=== PATIENT | female | born 1940 | race Caucasian/White ===

== ENCOUNTER 2019-02-19 06:00 | Outpatient (RCR) | payer MEDICARE, BC, SELFPAY | END 2019-03-21 00:01 | LOC: TPT 06:00 | PROVIDERS: Family Provider Internal Medicine; Visit Provider Anesthesiology Pain Medicine | DX: M48.062 Spinal stenosis, lumbar region with neurogenic claudication (principal); M47.816 Spondylosis without myelopathy or radiculopathy, lumbar region; M51.16 Intervertebral disc disorders with radiculopathy, lumbar region; M96.1 Postlaminectomy syndrome, not elsewhere classified; M54.5 Low back pain; M46.1 Sacroiliitis, not elsewhere classified | CPT/HCPCS: 97110 ×7; 97164; 97530 ×3; G0283 ×6 ==

== ENCOUNTER 2019-03-22 06:00 | Outpatient (RCR) | payer MEDICARE, BC, SELFPAY | END 2019-04-21 23:59 | disposition home or self-care (01) | LOC: TPT 06:00 | PROVIDERS: Family Provider Internal Medicine; PCP Internal Medicine; Visit Provider Anesthesiology Pain Medicine | DX: M48.062 Spinal stenosis, lumbar region with neurogenic claudication (principal); M47.816 Spondylosis without myelopathy or radiculopathy, lumbar region; M51.16 Intervertebral disc disorders with radiculopathy, lumbar region; M96.1 Postlaminectomy syndrome, not elsewhere classified; M46.1 Sacroiliitis, not elsewhere classified | CPT/HCPCS: 97110; 97530; G0283 ==

== ENCOUNTER 2019-04-22 06:00 | Outpatient (RCR) | payer MEDICARE, BC, SELFPAY | END 2019-05-20 23:59 | disposition home or self-care (01) | LOC: TPT 06:00 | PROVIDERS: Family Provider Internal Medicine; PCP Internal Medicine; Visit Provider Anesthesiology Pain Medicine | DX: M48.062 Spinal stenosis, lumbar region with neurogenic claudication (principal); M47.816 Spondylosis without myelopathy or radiculopathy, lumbar region; M51.16 Intervertebral disc disorders with radiculopathy, lumbar region; M96.1 Postlaminectomy syndrome, not elsewhere classified; M54.5 Low back pain; M46.1 Sacroiliitis, not elsewhere classified; F06.4 Anxiety disorder due to known physiological condition; G47.33 Obstructive sleep apnea (adult) (pediatric) | CPT/HCPCS: 97110; G0283 ==

== ENCOUNTER → 2019-05-02 12:00 | Outpatient (BNVA) | payer MEDICARE, BC, SELFPAY | PROVIDERS: Family Provider Internal Medicine; PCP Internal Medicine; Visit Provider Internal Medicine | DX: M25.562 Pain in left knee (principal); M25.561 Pain in right knee | CPT/HCPCS: 73565 ==

== ENCOUNTER 2019-05-31 11:33 | Outpatient (CLI) | payer MEDICARE, BC, SELFPAY ==
--- NOTE | 2019-05-31 11:43 | XR_ITS ---
WS: [id number] Bilateral hips. HISTORY: Pain. COMPARISON: 05/29/2013. RIGHT hip: Severe narrowing of the RIGHT hip joint. There is bone upon bone with osteophytic ridging and sclerotic changes on both sides of the joint space. Moderate progression since 2013. Subchondral cystic changes and irregularity with loss of cartilage. No fracture. LEFT hip: Minimal narrowing of the LEFT hip joint osteoarthritic changes. No fracture. No progression of disease. XR/XR hip BI 3-4V wo/w pel [id number] IMPRESSION: 1. Severe osteoarthritis at the RIGHT hip joint with moderate progression since 2013. 2. Mild LEFT hip joint osteoarthritis with no progression.
== END 2019-05-31 11:34 | disposition home or self-care (01) ==
PROVIDERS: Family Provider Internal Medicine; PCP Internal Medicine; Visit Provider Internal Medicine
DX: M16.0 Bilateral primary osteoarthritis of hip (principal); M25.552 Pain in left hip; M25.551 Pain in right hip
CPT/HCPCS: 73522

== ENCOUNTER → 2019-07-27 15:26 | Outpatient (BNVA) | payer MEDICARE, BC, SELFPAY | PROVIDERS: Family Provider Internal Medicine; PCP Internal Medicine; Visit Provider Internal Medicine | DX: R53.1 Weakness (principal); R53.83 Other fatigue; R25.1 Tremor, unspecified; E11.9 Type 2 diabetes mellitus without complications; N18.2 Chronic kidney disease, stage 2 (mild); D50.9 Iron deficiency anemia, unspecified | CPT/HCPCS: 80053; 82607; 82728; 82746; 83036; 83550; 84443; 85025 ==

== ENCOUNTER → 2019-10-18 15:37 | Outpatient (BNVA) | payer MEDICARE, BC, SELFPAY | PROVIDERS: Family Provider Internal Medicine; PCP Internal Medicine; Visit Provider Internal Medicine | DX: E11.9 Type 2 diabetes mellitus without complications (principal); R53.83 Other fatigue; I10 Essential (primary) hypertension | CPT/HCPCS: 80053; 82607; 82746; 83036; 83550; 84443; 85025 ==

== ENCOUNTER → 2019-11-02 11:00 | Outpatient (BNVA) | payer MEDICARE, BC, SELFPAY | PROVIDERS: Family Provider Internal Medicine; PCP Internal Medicine; Visit Provider Internal Medicine | DX: E03.9 Hypothyroidism, unspecified (principal); E87.1 Hypo-osmolality and hyponatremia | CPT/HCPCS: 80048; 84443 ==

== ENCOUNTER → 2019-12-05 11:02 | Outpatient (BNVA) | payer MEDICARE, BC, SELFPAY | PROVIDERS: Family Provider Internal Medicine; PCP Internal Medicine; Visit Provider Internal Medicine | DX: E03.9 Hypothyroidism, unspecified (principal) | CPT/HCPCS: 84443 ==

== ENCOUNTER → 2020-01-22 13:41 | Outpatient (BNVA) | payer MEDICARE, BC, SELFPAY | PROVIDERS: Family Provider Internal Medicine; PCP Internal Medicine; Visit Provider Internal Medicine | DX: N39.0 Urinary tract infection, site not specified (principal); R30.0 Dysuria | CPT/HCPCS: 81003 ==

== ENCOUNTER 2020-01-31 06:00 | Outpatient (RCR) | payer MEDICARE, BC, SELFPAY | END 2020-02-19 23:59 | disposition home or self-care (01) | LOC: TPT 06:00 | PROVIDERS: PCP Internal Medicine; Referring Provider Internal Medicine; Visit Provider Internal Medicine | DX: M62.81 Muscle weakness (generalized) (principal) | CPT/HCPCS: 81000; 97161 ==

== ENCOUNTER → 2020-02-05 10:18 | Outpatient (BNVA) | payer MEDICARE, BC, SELFPAY | PROVIDERS: PCP Internal Medicine; Visit Provider Family Medicine | DX: N39.0 Urinary tract infection, site not specified (principal) | CPT/HCPCS: 87086 ==

== ENCOUNTER → 2020-02-27 13:48 | Outpatient (BNVA) | payer MEDICARE, BC, SELFPAY | PROVIDERS: PCP Internal Medicine; Visit Provider Internal Medicine | DX: E78.5 Hyperlipidemia, unspecified (principal); I10 Essential (primary) hypertension; M25.559 Pain in unspecified hip | CPT/HCPCS: 86141 ==

== ENCOUNTER 2020-03-05 13:08 | Outpatient (CLI) | payer MEDICARE, BC, SELFPAY ==
--- NOTE | 2020-03-05 13:30 | USCV_ITS ---
Savannah Wu Age: 79 Gender: F : 1940 Exam Date: 03/05/2020 13:31 Ordering Phys: Marty Meadows MD ([email or web address]) Technologist: Laureano Killian Exam Location: [facility] – [place] Indication: SOB BP: 143 / 89 HR: 83 Rhythm: Sinus Technical Quality: Adequate MEASUREMENTS (Male / Female) Normal Values 2D ECHO LV Diastolic Diameter PLAX 3.6 cm 4.2 - 5.9 / 3.9 - 5.3 cm LV Systolic Diameter PLAX 1.3 cm IVS Diastolic Thickness 1.6 cm 0.6 - 1.0 / 0.6 - 0.9 cm IVS Systolic Thickness 1.8 cm LVPW Diastolic Thickness 1.7 cm 0.6 - 1.0 / 0.6 - 0.9 cm LVPW Systolic Thickness 1.7 cm LVOT Diameter 2.0 cm LV Ejection Fraction 2D Teich 85.9 % LV Ejection Fraction MOD 2C 65.3 % LV Ejection Fraction 2C AL 65.9 % LA Diameter 4.4 cm LA Width 3.6 cm LA Height 4.3 cm RA Width 2.7 cm RA Height 3.9 cm Aorta at Sinotubular Diameter 3.1 cm M-MODE LV Diastolic Diameter MM 4.0 cm 4.2 - 5.9 / 3.9 - 5.3 cm LV Systolic Diameter MM 2.0 cm LV Ejection Fraction MM Teich 81.9 % IVS Diastolic Thickness MM 2.1 cm 0.6 - 1.0 / 0.6 - 0.9 cm IVS Systolic Thickness MM 2.4 cm LVPW Diastolic Thickness MM 1.8 cm 0.6 - 1.0 / 0.6 - 0.9 cm LVPW Systolic Thickness MM 2.6 cm RV Diastolic Diameter MM 1.3 cm Aortic Annulus Diameter 3.5 cm LA Ao Ratio MM 1.2 MV E Point Septal Separation 0.8 cm DOPPLER AV Peak Velocity 156.0 cm/s LVOT Peak Velocity 155.0 cm/s AV Area Cont Eq vti 4.0 cm squared AV Area Cont Eq pk 3.3 cm squared MV Area PHT 2.3 cm squared Mitral E to A Ratio 0.5 MV E' Velocity 27.5 cm/s Mitral E to MV E' Ratio 6.8 Mitral E to LV E' Lateral Ratio 7.2 Mitral E to LV E' Septal Ratio 6.5 TR Peak Velocity 128.7 cm/s TR Peak Gradient 6.6 mmHg TV Peak E Velocity 89.0 cm/s Right Atrial Pressure 3.0 mmHg Pulmonary Artery Systolic Pressu 9.6 mmHg PV Peak Velocity 152.0 cm/s FINDINGS Left Ventricle Normal left ventricular cavity size. Decreased left ventricular wall thickness. No regional wall motion abnormalities. Hyperdynamic left ventricular systolic function.moderate left ventricular hypertrophy of concentric type. Left ventricular ejection fraction is estimated at 70 %. Grade I/IV diastolic dysfunction (abnormal relaxation filling pattern), normal to mildly elevated filling pressures. Right Ventricle The right ventricle is normal in size and function. Right Atrium The right atrium is normal in size. Left Atrium The left atrium is normal in size. Mitral Valve Structurally normal mitral valve without significant stenosis or prolapse. There is no mitral regurgitation. Aortic Valve Moderate aortic valve calcification. No aortic valve stenosis. Mild aortic valve regurgitation. Tricuspid Valve Structurally normal tricuspid valve without significant stenosis or regurgitation. Pulmonary artery systolic pressure is normal. Pulmonic Valve Structurally normal pulmonic valve without significant stenosis. There is no pulmonic regurgitation. Pericardium Normal pericardium without effusion. Aorta Normal ascending aorta dimension. CONCLUSIONS 1-Normal left ventricular cavity size. Decreased left ventricular wall thickness. No regional wall motion abnormalities. Hyperdynamic left ventricular systolic function.moderate left ventricular hypertrophy of concentric type. Left ventricular ejection fraction is estimated at 70 %. Grade I/IV diastolic dysfunction (abnormal relaxation filling pattern), normal to mildly elevated filling pressures. 2-Moderate aortic valve calcification. No aortic valve stenosis. Mild aortic valve regurgitation. 3-There is no pericardial effusion. 4-Pulmonary artery systolic pressure is within normal limits. 5-Right atrial pressure is around 5 mm of mercury. 6-No significant change since the prior echocardiogram study of 07/05/2018.. Marty Meadows MD (Electronically Signed) Final Date: 06 March 2020 18:51 S
== END 2020-03-05 13:09 | disposition home or self-care (01) ==
LOC: US 13:08
PROVIDERS: PCP Internal Medicine; Visit Provider Internal Medicine Cardiovascular Disease
DX: I35.1 Nonrheumatic aortic (valve) insufficiency (principal); R06.02 Shortness of breath
CPT/HCPCS: 93306

== ENCOUNTER 2020-04-18 14:45 | Emergency (ER) | payer MEDICARE, BC, SELFPAY ==
[2020-04-18 14:50] VITALS: BP 159/71; PULSE 118; RESP 18; TEMP 36.8; O2SAT 96; BMI 34.3
--- NOTE | 2020-04-18 15:01 | W.ED.GENADLT ---
Documented by User: Demario Meyer DO 04/19/20 06:50 HPI - General Adult General: Chief complaint: General Medical Stated complaint: queazy, shaky, stomach issues Time Seen by Provider: 04/18/20 14:59 History of Present Illness: HPI narrative: 80-year-old female presents emergency room with complaints of generally not feeling well nauseous queasy shaking. She denies any fever sweats or chills she denies any hematochezia melena hematemesis or coffee-ground emesis. This is been going on for about 3 days now. She has multiple allergies that she recently stopped taking gabapentin 300 mg once daily. Did not take any anticoagulant she has not recently had any falls. She denies any dysuria urgency or frequency. Onset (ago): day(s) Location: abdomen Radiation: back Severity: mild and moderate Relieving factors: none Exacerbating factors: none Associated symptoms: Reports decreased appetite, malaise, nausea and weakness; Deny chest pain, confusion, cough, diaphoresis, dyspnea, fevers/chills, headache(s), rash, palpitations, seizures, short of breath, syncope or vomiting Treatments prior to arrival: none Review of Systems Const: Reports: malaise; Denies: diaphoresis ENMT: Denies: throat pain, ear or mastoid pain, nasal discharge or nasal congestion Card: Denies: chest pain, palpitations or syncope Resp: Denies: dyspnea GI: Reports: nausea; Denies: vomiting : Denies: flank pain, difficulty voiding, dysuria, urinary frequency or urinary urgency Skin/Breast: Denies: rash Neuro: Denies: headache(s) or confusion [facility] ED PFSH: Medical History Ascending aorta dilation Back pain, thoracic Benign essential HTN Bilateral primary osteoarthritis of knee Chronic depression Chronic pain CKD (chronic kidney disease), stage II Coronary artery disease Cyst of pancreas Essential tremor Generalized neuropathy H/O angiography Hyperlipidemia, unspecified Hypothyroidism, unspecified Iron deficiency Mild aortic regurgitation Mild mitral regurgitation Mild obstructive sleep apnea Mild tricuspid regurgitation Slow transit constipation Stress-induced cardiomyopathy Tremor, unspecified Type 2 diabetes mellitus without complications Vitamin D deficiency, unspecified Surgical History History of esophagogastroduodenoscopy (EGD) 12/03/2017- INTEALUMINAL GASTRIC BLOOD- GASTRITIS WITH BLEEDING S/P colonoscopy 12/03/2017- POLYPS REMOVED- REPEAT IN 5 YEARS Family History Other Diabetes Heart disease Social History Smoking and tobacco status: former smoker Alcohol intake: never History of recent travel: No Physical Exam Const: COMMON NORMALS: no acute distress GENERAL APPEARANCE: cooperative and comfortable ORIENTATION/CONSCIOUSNESS: Yes awake, Yes oriented to person, Yes oriented to place and Yes oriented to time HENMT: COMMON NORMALS: normocephalic, atraumatic and hearing grossly normal bilaterally HEAD & SCALP: normocephalic and atraumatic Neck/C-Spine: COMMON NORMALS: no JVD Resp: COMMON NORMALS: normal respiratory effort, No retractions, No use of accessory muscles and clear to auscultation bilaterally AUSCULTATION: clear to auscultation bilaterally Cardio: COMMON NORMALS: no JVD, regular rate, regular rhythm and No murmurs present (Cardio) RATE: regular rate RHYTHM: regular rhythm GI: COMMON NORMALS: Soft to palpation and No hepatosplenomegaly present AUSCULTATION: Yes normoactive bowel sounds PALPATION: Yes Soft to palpation, No Tenderness to palpation present (GI), No Guarding due to palpation present (GI) and Yes No hepatosplenomegaly present Extremity: COMMON NORMALS: normal to inspection, capillary refill normal, no clubbing, cyanosis or edema, no calf tenderness and no pedal edema Neuro: SENSORIUM/ORIENTATION: Yes oriented to person, Yes oriented to place and Yes oriented to time Skin: COMMON NORMALS: no rashes or lesions noted GENERAL SKIN EXAM: no rashes or lesions noted Course Vital Signs: Vital signs: Vital Signs Temperature 98.3 F 04/18/20 14:50 Pulse Rate 83 04/18/20 19:53 Respiratory Rate 18 04/18/20 19:53 Blood Pressure 161/77 04/18/20 19:53 Pulse Oximetry 95 04/18/20 19:53 MDM - General Adult MDM Narrative: Medical decision making narrative: Care turned over to Dr. Johnson at change of shift. See his notes for final diagnosis and disposition Lab Data: Labs: Lab Results 04/18/20 04/18/20 04/18/20 Range/Units 15:17 15:17 16:43 WBC 9.0 (4.0-10.0) 10^3/ uL RBC 3.45 L (4.1-5.3) 10^6/u L Hgb 10.7 L (11.5-15.3) g/dL Hct 32.8 L (37.0-47.0) % MCV 95.1 (81-99) fL MCH 31.0 (28.0-34.0) pg MCHC 32.6 (30.0-36.0) g/dL RDW 13.0 (12.1-15.1) % Plt Count 233 (130-400) 10^3/c mm MPV 10.1 (7.4-10.4) fL Neut % (Auto) 77.5 % Lymph % (Auto) 15.4 % [place] % (Auto) 5.6 % Eos % (Auto) 0.7 % Baso % (Auto) 0.2 % Neut # (Auto) 7.01 (1.8-7.7) 10^3/u L Lymph # (Auto) 1.4 (0.8-4.8) 10^3/u L [place] # (Auto) 0.5 (0.2-0.9) 10^3/u L Eos # (Auto) 0.1 (0.0-0.8) 10^3/u L Baso # (Auto) 0.0 (0.0-0.1) 10^3/u L Nucleated RBC % (a uto) 0 % Nucleated RBCs # 0.0 /100WBC Sodium 132 L (136-145) mmol/L Potassium 4.4 (3.5-5.1) mmol/L Chloride 97 L (98-107) mmol/L Carbon Dioxide 23 (22-29) mmol/L Anion Gap 16.4 (5-19) BUN 26 H (8-23) mg/dL Creatinine 1.4 H (0.5-0.9) mg/dL GFR Calculation Not Reportable Glucose 308 H (65-115) mg/dL Calculated Osmolal ity 290 (285-295) mOsm/k g Calcium 9.2 (8.5-10.5) mg/dL Magnesium 1.8 (1.7-2.3) mg/dL Total Bilirubin 0.3 (0.15-1.2) mg/dL AST 13 (0-32) U/L ALT 10 (0-33) U/L Alkaline Phosphata se 66 (35-105) IU/L Creatine Kinase 89 (26-192) U/L Total Protein 6.9 (6.6-8.7) g/dL Albumin 3.7 (3.5-5.2) g/dL Globulin 3.2 (1.3-4.6) g/dL Lipase 22 (13-60) U/L Urine Color Yellow (Yellow) Urine Appearance Clear (CLEAR) Urine pH 5 (5-7) Ur Specific Gravit y 1.020 (1.005-1.030) Urine Protein Neg (Negative) Urine Glucose (UA) Norm (Normal) Urine Ketones Negative (Negative) Urine Blood Neg (Negative) Urine Nitrate Negative (Negative) Urine Bilirubin Neg (Negative) Urine Urobilinogen Norm (Negative) mg/dL Ur Leukocyte Beatriz ase Negative (Negative) Discharge Plan Discharge Patient Disposition: Home Clinical Impression: Dyspnea Abdominal pain Qualifiers: Abdominal location: generalized Qualified Code(s): R10.84 - Generalized abdominal pain Condition: Stable Prescriptions: New ondansetron 4 mg tablet,disintegrating 4 mg PO Q6H PRN (Reason: nausea and vomiting) Qty: 14 RF: 0 dicyclomine 20 mg tablet 20 mg PO BID PRN (Reason: abdominal pain) Qty: 20 RF: 0 No Action atorvastatin 20 mg tablet 20 mg PO DAILY@22 RF: 0 Levemir FlexTouch U-100 Insuln 100 unit/mL (3 mL) insulin pen 25 unit SUBCUT BID 90 Days Qty: 45 RF: 3 (DME) blood-glucose meter Kit See Rx Instructions .ROUTE .MEDSUPPLY Qty: 1 RF: 0 Benadryl 25 mg Capsule 25 mg PO PRN RF: 0 Refresh 1 % Drops, Liquid Gel 1 - 2 drp ophthalmic (eye) PRN RF: 0 meloxicam 15 mg tablet 15 mg PO DAILY@08 RF: 0 isosorbide mononitrate 30 mg tablet extended release 24 hr 30 mg PO DAILY@08 RF: 0 clopidogrel 75 mg tablet 75 mg PO DAILY@08 RF: 0 verapamil 120 mg tablet 120 mg PO DAILY@08 RF: 0 trazodone 100 mg tablet 100 mg PO DAILY@22 RF: 0 hydralazine 100 mg tablet 100 mg PO TID@,, RF: 0 pantoprazole 40 mg tablet,delayed release (DR/EC) 40 mg PO BID@, RF: 0 losartan 100 mg tablet 100 mg PO DAILY@08 RF: 0 fluticasone propionate 50 mcg/actuation spray,suspension 2 spray INTRANASAL DAILY PRN (Reason: Allergy Symptoms) RF: 0 Abilify 5 mg tablet 5 mg PO DAILY@22 RF: 0 duloxetine 60 mg capsule,delayed release(DR/EC) 60 mg PO DAILY@08 RF: 0 cholecalciferol (vitamin D3) 1,250 mcg (50,000 unit) capsule 50,000 unit PO Q30D RF: 0 levothyroxine 125 mcg capsule 125 mcg PO DAILY@07 RF: 0 Discharge Orders: Discharge ED (Routine); Ordered 04/18/20 Ordered By: Chloe Johnson Referrals: Andrea Katz MD [Primary Care Provider] - 1-3 days Discharge Diet: Advance as tolerated Discharge Activity: Resume usual activity Patient Instructions: Abdominal Pain (ED) Coding Level of Care Code ED Clean Out Driller for Chg Fwd Exam Comprehensive Documented by User: Chloe Johnson MD 04/18/20 19:48 HPI - General Adult General: Chief complaint: General Medical Stated complaint: queazy, shaky, stomach issues Time Seen by Provider: 04/18/20 14:59 PFSH ED PFSH: Medical History Ascending aorta dilation Back pain, thoracic Benign essential HTN Bilateral primary osteoarthritis of knee Chronic depression Chronic pain CKD (chronic kidney disease), stage II Coronary artery disease Cyst of pancreas Essential tremor Generalized neuropathy H/O angiography Hyperlipidemia, unspecified Hypothyroidism, unspecified Iron deficiency Mild aortic regurgitation Mild mitral regurgitation Mild obstructive sleep apnea Mild tricuspid regurgitation Slow transit constipation Stress-induced cardiomyopathy Tremor, unspecified Type 2 diabetes mellitus without complications Vitamin D deficiency, unspecified Surgical History History of esophagogastroduodenoscopy (EGD) 12/03/2017- INTEALUMINAL GASTRIC BLOOD- GASTRITIS WITH BLEEDING S/P colonoscopy 12/03/2017- POLYPS REMOVED- REPEAT IN 5 YEARS Family History Other Diabetes Heart disease Social History Smoking and tobacco status: former smoker Alcohol intake: never History of recent travel: No Course Vital Signs: Vital signs: Vital Signs Temperature 98.3 F 04/18/20 14:50 Pulse Rate 83 04/18/20 19:53 Respiratory Rate 18 04/18/20 19:53 Blood Pressure 161/77 04/18/20 19:53 Pulse Oximetry 95 04/18/20 19:53 MDM - General Adult MDM Narrative: Medical decision making narrative: Savannah presents with abdominal pain. Her CT scan here is normal. We will get her follow-up with Dr. Katz her PCP she likely needs an EGD. We will place her on Bentyl along with Zofran. She had some mild hypoxia but she does wear oxygen as needed at home as well. She has no signs of pneumonia. Patient is stable for discharge and is to return if worsening. She understands agrees to plan. Lab Data: Labs: Lab Results 04/18/20 04/18/20 04/18/20 Range/Units 15:17 15:17 16:43 WBC 9.0 (4.0-10.0) 10^3/ uL RBC 3.45 L (4.1-5.3) 10^6/u L Hgb 10.7 L (11.5-15.3) g/dL Hct 32.8 L (37.0-47.0) % MCV 95.1 (81-99) fL MCH 31.0 (28.0-34.0) pg MCHC 32.6 (30.0-36.0) g/dL RDW 13.0 (12.1-15.1) % Plt Count 233 (130-400) 10^3/c mm MPV 10.1 (7.4-10.4) fL Neut % (Auto) 77.5 % Lymph % (Auto) 15.4 % [place] % (Auto) 5.6 % Eos % (Auto) 0.7 % Baso % (Auto) 0.2 % Neut # (Auto) 7.01 (1.8-7.7) 10^3/u L Lymph # (Auto) 1.4 (0.8-4.8) 10^3/u L [place] # (Auto) 0.5 (0.2-0.9) 10^3/u L Eos # (Auto) 0.1 (0.0-0.8) 10^3/u L Baso # (Auto) 0.0 (0.0-0.1) 10^3/u L Nucleated RBC % (a uto) 0 % Nucleated RBCs # 0.0 /100WBC Sodium 132 L (136-145) mmol/L Potassium 4.4 (3.5-5.1) mmol/L Chloride 97 L (98-107) mmol/L Carbon Dioxide 23 (22-29) mmol/L Anion Gap 16.4 (5-19) BUN 26 H (8-23) mg/dL Creatinine 1.4 H (0.5-0.9) mg/dL GFR Calculation Not Reportable Glucose 308 H (65-115) mg/dL Calculated Osmolal ity 290 (285-295) mOsm/k g Calcium 9.2 (8.5-10.5) mg/dL Magnesium 1.8 (1.7-2.3) mg/dL Total Bilirubin 0.3 (0.15-1.2) mg/dL AST 13 (0-32) U/L ALT 10 (0-33) U/L Alkaline Phosphata se 66 (35-105) IU/L Creatine Kinase 89 (26-192) U/L Total Protein 6.9 (6.6-8.7) g/dL Albumin 3.7 (3.5-5.2) g/dL Globulin 3.2 (1.3-4.6) g/dL Lipase 22 (13-60) U/L Urine Color Yellow (Yellow) Urine Appearance Clear (CLEAR) Urine pH 5 (5-7) Ur Specific Gravit y 1.020 (1.005-1.030) Urine Protein Neg (Negative) Urine Glucose (UA) Norm (Normal) Urine Ketones Negative (Negative) Urine Blood Neg (Negative) Urine Nitrate Negative (Negative) Urine Bilirubin Neg (Negative) Urine Urobilinogen Norm (Negative) mg/dL Ur Leukocyte Beatriz ase Negative (Negative) Imaging Data^: CT Abd/Pel: Attestation: I personally reviewed and interpreted this imaging study as follows: Radiologist's impression: [employer] [address] [address] Scan Report Signed Patient: Savannah Wu Unit #: [id number] : 1940 Age/Sex: 80 / F ADM Date: 04/18/20 Loc: ER Room/Bed: Attending Dr: Ordering Provider/Ordering MD: Demario Meyer DO Date of Service: 04/18/20 Procedure(s): CT abdomen pelvis w con* [id number] Accession Number(s): [id number] Report Number: [id number] PROCEDURE INFORMATION: Exam: CT Abdomen And Pelvis With Contrast Exam date and time: 04/18/2020 5:35 PM Age: 80 years old Clinical indication: Nausea; Abdominal pain; Prior surgery; Surgery type: Hyst, gb, hip; Additional info: Abd pain TECHNIQUE: Imaging protocol: Computed tomography of the abdomen and pelvis with intravenous contrast. Radiation optimization: All CT scans at this facility use at least one of these dose optimization techniques: automated exposure control; mA and/or kV adjustment per patient size (includes targeted exams where dose is matched to clinical indication); or iterative reconstruction. Contrast material: VISI 320; Contrast volume: 95 ml; Contrast route: INTRAVENOUS (IV); COMPARISON: CTA Thoracic/Abd/Pelvis Aorta 09/27/2016 4:40 AM RADIATION DOSE METRICS: Total DLP (mGy-cm): 1259.39 FINDINGS: Lungs: Calcified granuloma in the left lower lobe. Heart: Small pericardial effusion. Mediastinal space: Small hiatal hernia. Liver: Normal. No mass. Gallbladder and bile ducts: Cholecystectomy. The bile ducts are normal. Pancreas: Normal. No ductal dilation. Spleen: Normal. No splenomegaly. Adrenal glands: Normal. No mass. Kidneys and ureters: Mild perinephric stranding appears chronic and is likely physiologic. No calculus or hydronephrosis. Stomach and bowel: Mild diverticulosis of the distal colon. The stomach and small bowel are unremarkable. Appendix: The appendix is not visualized. No secondary signs of appendicitis. Intraperitoneal space: Clips in the anterior mesentery. Vasculature: Atherosclerotic calcifications without aneurysm. Lymph nodes: Unremarkable. No enlarged lymph nodes. Urinary bladder: Unremarkable as visualized. Reproductive: The uterus and ovaries are absent. Bones/joints: L4-L5 decompressive laminectomies with posterior mechanical fusion. No compression fracture. L3 vertebral body hemangioma. Soft tissues: Medication injection sites in the anterior abdominal wall. Other findings: No acute findings. CT/CT abdomen pelvis w con* [id number] IMPRESSION: 1. No acute abnormality identified in the abdomen or pelvis. 2. Mild diverticulosis of the distal colon. Discharge Plan Discharge Patient Disposition: Home Clinical Impression: Dyspnea Abdominal pain Qualifiers: Abdominal location: generalized Qualified Code(s): R10.84 - Generalized abdominal pain Condition: Stable Prescriptions: New ondansetron 4 mg tablet,disintegrating 4 mg PO Q6H PRN (Reason: nausea and vomiting) Qty: 14 RF: 0 dicyclomine 20 mg tablet 20 mg PO BID PRN (Reason: abdominal pain) Qty: 20 RF: 0 No Action atorvastatin 20 mg tablet 20 mg PO DAILY@22 RF: 0 Levemir FlexTouch U-100 Insuln 100 unit/mL (3 mL) insulin pen 25 unit SUBCUT BID 90 Days Qty: 45 RF: 3 (DME) blood-glucose meter Kit See Rx Instructions .ROUTE .MEDSUPPLY Qty: 1 RF: 0 Benadryl 25 mg Capsule 25 mg PO PRN RF: 0 Refresh 1 % Drops, Liquid Gel 1 - 2 drp ophthalmic (eye) PRN RF: 0 meloxicam 15 mg tablet 15 mg PO DAILY@08 RF: 0 isosorbide mononitrate 30 mg tablet extended release 24 hr 30 mg PO DAILY@08 RF: 0 clopidogrel 75 mg tablet 75 mg PO DAILY@08 RF: 0 verapamil 120 mg tablet 120 mg PO DAILY@08 RF: 0 trazodone 100 mg tablet 100 mg PO DAILY@22 RF: 0 hydralazine 100 mg tablet 100 mg PO TID@08,20,22 RF: 0 pantoprazole 40 mg tablet,delayed release (DR/EC) 40 mg PO BID@08,22 RF: 0 losartan 100 mg tablet 100 mg PO DAILY@08 RF: 0 fluticasone propionate 50 mcg/actuation spray,suspension 2 spray INTRANASAL DAILY PRN (Reason: Allergy Symptoms) RF: 0 Abilify 5 mg tablet 5 mg PO DAILY@22 RF: 0 duloxetine 60 mg capsule,delayed release(DR/EC) 60 mg PO DAILY@08 RF: 0 cholecalciferol (vitamin D3) 1,250 mcg (50,000 unit) capsule 50,000 unit PO Q30D RF: 0 levothyroxine 125 mcg capsule 125 mcg PO DAILY@07 RF: 0 Discharge Orders: Discharge ED (Routine); Ordered 04/18/20 Ordered By: Chloe Johnson Referrals: Andrea Katz MD [Primary Care Provider] - 1-3 days Discharge Diet: Advance as tolerated Discharge Activity: Resume usual activity Patient Instructions: Abdominal Pain (ED) Coding Level of Care Code ED Clean Out Driller for Christiang Fwd Exam Comprehensive
--- NOTE | 2020-04-18 15:10 | ECG_ITS ---
[facility] Test Date: 2020-04-18 Pat Name: Savannah Wu Department: Room: Gender: Female Replenishment Specialist: : 1940 Requested By: Demario Mckeon Order Number: [id number] Rohini MD: Sariah Crouch M.D. Measurements Intervals [place] Rate: 102 P: 98 OR: 186 QRS: -60 QRSD: 126 T: 62 QT: 393 QTc: 513 Interpretive Statements SINUS TACHYCARDIA RIGHT BUNDLE BRANCH BLOCK [120+ ms QRS DURATION, UPRIGHT V1, 40+ ms S IN I/aVL/V4/V5/V6] LEFT ANTERIOR FASCICULAR BLOCK [QRS AXIS <= -45, QR IN I, RS IN II] MINIMAL VOLTAGE CRITERIA FOR LVH, CONSIDER NORMAL VARIANT [MEETS CRITERIA IN ONE OF: R(aVL), S(V1), R(V5), R(V5/V6)+S(V1)] POSSIBLE SEPTAL MYOCARDIAL INFARCTION , PROBABLY OLD [30 ms Q WAVE IN V1/V2] Compared to ECG 10/18/2016 12:51:22 Right bundle-branch block now presentLeft anterior fascicular block now present Myocardial infarct finding now present Sinus bradycardia no longer present Left-axis deviation no longer present ST (T wave) deviation no longer present Electronically Signed On 04-18-2020 18:05:09 HUMAN RESOURCES RECEPTIONIST by Sariah Crouch M.D. [email or web address]
--- NOTE | 2020-04-18 15:10 | CTR_ITS ---
PROCEDURE INFORMATION: Exam: CT Abdomen And Pelvis With Contrast Exam date and time: 04/18/2020 5:35 PM Age: 80 years old Clinical indication: Nausea; Abdominal pain; Prior surgery; Surgery type: Hyst, gb, hip; Additional info: Abd pain TECHNIQUE: Imaging protocol: Computed tomography of the abdomen and pelvis with intravenous contrast. Radiation optimization: All CT scans at this facility use at least one of these dose optimization techniques: automated exposure control; mA and/or kV adjustment per patient size (includes targeted exams where dose is matched to clinical indication); or iterative reconstruction. Contrast material: VISI 320; Contrast volume: 95 ml; Contrast route: INTRAVENOUS (IV); COMPARISON: CTA Thoracic/Abd/Pelvis Aorta 09/27/2016 4:40 AM RADIATION DOSE METRICS: Total DLP (mGy-cm): 1259.39 FINDINGS: Lungs: Calcified granuloma in the left lower lobe. Heart: Small pericardial effusion. Mediastinal space: Small hiatal hernia. Liver: Normal. No mass. Gallbladder and bile ducts: Cholecystectomy. The bile ducts are normal. Pancreas: Normal. No ductal dilation. Spleen: Normal. No splenomegaly. Adrenal glands: Normal. No mass. Kidneys and ureters: Mild perinephric stranding appears chronic and is likely physiologic. No calculus or hydronephrosis. Stomach and bowel: Mild diverticulosis of the distal colon. The stomach and small bowel are unremarkable. Appendix: The appendix is not visualized. No secondary signs of appendicitis. Intraperitoneal space: Clips in the anterior mesentery. Vasculature: Atherosclerotic calcifications without aneurysm. Lymph nodes: Unremarkable. No enlarged lymph nodes. Urinary bladder: Unremarkable as visualized. Reproductive: The uterus and ovaries are absent. Bones/joints: L4-L5 decompressive laminectomies with posterior mechanical fusion. No compression fracture. L3 vertebral body hemangioma. Soft tissues: Medication injection sites in the anterior abdominal wall. Other findings: No acute findings. CT/CT abdomen pelvis w con* [id number] IMPRESSION: 1. No acute abnormality identified in the abdomen or pelvis. 2. Mild diverticulosis of the distal colon. Radiation Dose CTDIVOL = (mGy): DLP = 1259.39 (mGy-cm)
--- NOTE | 2020-04-18 15:10 | XR_ITS ---
WS: [id number] Exam: XR chest 1V portable [id number] Date/Time of Exam: 04/18/2020 3:10 PM Reason For Exam: dyspnea/cough Comparison 10/17/2016. Findings: The lungs are clear and fully expanded. Costophrenic angles are sharp. No infiltrates. Bronchovascula r relief appears normal. Cardiac silhouette is unremarkable. Bony elements are intact. XR/XR chest 1V portable [id number] IMPRESSION: Unremarkable chest radiograph.
[2020-04-18 15:29] LABS: Basophils % 0.2 %; Eosinophils # 0.1 10^3/uL (0.0-0.8); Eosinophils % 0.7 %; Hematocrit 32.8 % (37.0-47.0); Hemoglobin 10.7 g/dL (11.5-15.3); Lymphocytes # 1.4 10^3/uL (0.8-4.8); Lymphocytes % 15.4 %; Mean Corpuscular HGB Conc 32.6 g/dL (30.0-36.0); Mean Corpuscular Volume 95.1 fL (81-99); Mean Platelet Volume 10.1 fL (7.4-10.4); Monocytes # 0.5 10^3/uL (0.2-0.9); Monocytes % 5.6 %; Neutrophils # 7.01 10^3/uL (1.8-7.7); Neutrophils % 77.5 %; Nucleated Red Blood Cells % 0 %; Platelet Count 233 10^3/cmm (130-400); Red Blood Count 3.45 10^6/uL (4.1-5.3)
[2020-04-18] MEDS: ondansetron 2 mg/ML SDV 2 mL 4 MG IVP (15:31)
--- NOTE | 2020-04-18 16:28 | PC.PHAR ---
Addendum entered by Danielle Elliott 04/18/20 16:36: pt states her gabapentin 600mg was dced on wednesday04/12/20 Original Note: pt brought in a pill pack of her medications-ext med history shows primidone 50mg at hs filled on 03/28/2020 30d/s and terazosin 10mg po qam filled on 03/28/20 30d/s those 2 medications were not in the pts pill pack-pt states if its not in the pill pack she is not taking that medication-pts pill pack brought in had aripiprazole 10mg daily-pt in the pack is really 5mg daily and thats what it was filled for on 04/16/20-called pharmacy and talked to [facility] and he verified that it was the right 5mg tab the pt is suppose to be taking
[2020-04-18 16:53] LABS: Add Urine Microscopic? NO
[2020-04-18 16:59] LABS: Alanine Aminotransferase 10 U/L (0-33); Albumin Level 3.7 g/dL (3.5-5.2); Alkaline Phosphatase 66 IU/L (35-105); Blood Urea Nitrogen 26 mg/dL (8-23); Calcium 9.2 mg/dL (8.5-10.5); Carbon Dioxide 23 mmol/L (22-29); Chloride 97 mmol/L (98-107); Creatine Phosphokinase 89 U/L (26-192); Globulin 3.2 g/dL (1.3-4.6); Glucose 308 mg/dL (65-115); Lipase 22 U/L (13-60); Magnesium 1.8 mg/dL (1.7-2.3); Osmolality Calculated 290 mOsm/kg (285-295); Sodium 132 mmol/L (136-145); Total Bilirubin 0.3 mg/dL (0.15-1.2); Total Protein 6.9 g/dL (6.6-8.7)
[2020-04-18 17:00] VITALS: BP 145/59; PULSE 87; RESP 19; O2SAT 92
[2020-04-18 17:01] LABS: Anion Gap 16.4 (5-19); Aspartate Amino Transferase 13 U/L (0-32); Potassium 4.4 mmol/L (3.5-5.1)
[2020-04-18 17:09] VITALS: O2SAT 88; O2SAT 96
[2020-04-18 17:12] LABS: Urine Appearance Clear (CLEAR); Urine Color Yellow (Yellow)
[2020-04-18 17:13] LABS: Bilirubin Urine Neg (Negative); Blood Urine Neg (Negative); Glucose Urine UA Norm (Normal); Ketones Urine Negative (Negative); Leukocyte Esterase Urine Negative (Negative); Nitrate Urine Negative (Negative); Protein Urine Neg (Negative); Urobilinogen Urine Norm (Negative); pH Urine 5 (5-7)
[2020-04-18] MEDS: iodixanol 320 mg/mL 100mL Btl IV (17:49)
[2020-04-18 18:00] VITALS: BP 177/87; PULSE 84; RESP 18; O2SAT 98
[2020-04-18 19:00] VITALS: BP 156/88; PULSE 84; RESP 18; O2SAT 95
[2020-04-18] MEDS: ondansetron 4 MG Tablet 8 MG PO (19:40)
[2020-04-18] MEDS: dicyclomine 20 mg Tablet PO (19:52)
[2020-04-18 19:53] VITALS: BP 161/77; PULSE 83; RESP 18; O2SAT 95
--- NOTE | 2020-04-19 10:28 | DCPLANNER ---
actuarial manager had message to schedule a follow up appointment for patient with Dr. Katz. actuarial manager called the office of Dr. Katz, spoke with Yakelin. A follow up appointment was scheduled for April at 3:[address] Katz. Clinic will call patient with appointment information.
--- NOTE | 2020-06-12 11:36 | DCPLANNER ---
Patient had a follow up appointment scheduled for 04.25.[address] Katz - patient did attend appointment.
== END 2020-04-18 19:55 | disposition home or self-care (01) ==
PROVIDERS: Family Medicine; Emergency Provider Emergency Medicine; PCP Internal Medicine
DX: R10.84 Generalized abdominal pain (principal); R06.00 Dyspnea, unspecified; Z79.4 Long term (current) use of insulin; Z79.02 Long term (current) use of antithrombotics/antiplatelets; I12.9 Hypertensive chronic kidney disease with stage 1 through stage 4 chronic kidney disease, or unspecified chronic kidney disease; E11.22 Type 2 diabetes mellitus with diabetic chronic kidney disease; N18.2 Chronic kidney disease, stage 2 (mild); I25.10 Atherosclerotic heart disease of native coronary artery without angina pectoris; E78.5 Hyperlipidemia, unspecified; E11.40 Type 2 diabetes mellitus with diabetic neuropathy, unspecified; Z87.891 Personal history of nicotine dependence
CPT/HCPCS: 12345; 71045; 74177; 80053; 81003; 82550; 83690; 83735; 85025; 93005; 96361; 96374; 96375; 99282; 99283; J2405; Q0162; Q9967

== ENCOUNTER → 2020-06-21 11:31 | Outpatient (BNVA) | payer MEDICARE, BC, SELFPAY | PROVIDERS: PCP Internal Medicine; Visit Provider Internal Medicine | DX: Z20.822 Contact with and (suspected) exposure to COVID-19 (principal) | CPT/HCPCS: 87635 ==

== ENCOUNTER 2020-06-25 09:42 | Outpatient (CLI) | payer MEDICARE, BC, SELFPAY ==
--- NOTE | 2020-06-25 13:19 | PFTS_ITS ---
Date of Study:06/25/20 Date of Dictation: MECHANICS: Forced vital capacity (FVC) is normal. Forced expiratory volume in one second (FEV1) is normal. FEV1/FVC is normal. FLOW VOLUME LOOP: Normal. LUNG VOLUMES: Total lung capacity (TLC) is normal. Residual volume (RV) is normal. DIFFUSING CAPACITY FOR CARBON MONOXIDE: Normal. INTERPRETATION: The pulmonary function tests are normal. MTDD
== END 2020-06-25 09:43 | disposition home or self-care (01) ==
PROVIDERS: PCP Internal Medicine; Visit Provider Internal Medicine
DX: R06.02 Shortness of breath (principal)
CPT/HCPCS: 94010; 94726; 94729

== ENCOUNTER → 2020-08-13 17:00 | Outpatient (BNVA) | payer MEDICARE, BC, SELFPAY | PROVIDERS: PCP Internal Medicine; Visit Provider Family Medicine | DX: R25.2 Cramp and spasm (principal); H60.502 Unspecified acute noninfective otitis externa, left ear; Z79.899 Other long term (current) drug therapy; I10 Essential (primary) hypertension; E78.5 Hyperlipidemia, unspecified; E11.9 Type 2 diabetes mellitus without complications | CPT/HCPCS: 80053; 83735; 84443 ==

== ENCOUNTER → 2020-08-22 10:00 | Outpatient (BNVA) | payer MEDICARE, BC, SELFPAY | PROVIDERS: PCP Internal Medicine; Visit Provider Family Medicine | DX: E11.9 Type 2 diabetes mellitus without complications (principal); R73.09 Other abnormal glucose | CPT/HCPCS: 83036 ==

== ENCOUNTER → 2020-09-18 10:43 | Outpatient (BNVA) | payer MEDICARE, BC, SELFPAY | PROVIDERS: PCP Internal Medicine; Visit Provider Internal Medicine | DX: E03.9 Hypothyroidism, unspecified (principal) | CPT/HCPCS: 84443 ==

== ENCOUNTER 2020-10-08 06:00 | Outpatient (RCR) | payer MEDICARE, BC, SELFPAY | END 2020-10-19 23:59 | disposition home or self-care (01) | LOC: TPT 06:00 | PROVIDERS: PCP Internal Medicine; Referring Provider Internal Medicine; Visit Provider Internal Medicine | DX: R06.02 Shortness of breath (principal) | CPT/HCPCS: 97110; 97162 ==

== ENCOUNTER 2020-10-20 06:00 | Outpatient (RCR) | payer MEDICARE, BC, SELFPAY | END 2020-11-19 23:59 | disposition home or self-care (01) | LOC: TPT 06:00 | PROVIDERS: PCP Internal Medicine; Referring Provider Internal Medicine; Visit Provider Internal Medicine | DX: R06.02 Shortness of breath (principal) | CPT/HCPCS: 97110; 97150 ==

== ENCOUNTER → 2020-10-21 14:17 | Outpatient (BNVA) | payer MEDICARE, BC, SELFPAY | PROVIDERS: PCP Internal Medicine; Visit Provider Internal Medicine | DX: E03.9 Hypothyroidism, unspecified (principal) | CPT/HCPCS: 84443 ==

== ENCOUNTER 2020-11-20 06:00 | Outpatient (RCR) | payer MEDICARE, BC, SELFPAY | END 2020-12-19 23:59 | disposition home or self-care (01) | LOC: TPT 06:00 | PROVIDERS: PCP Internal Medicine; Referring Provider Internal Medicine; Visit Provider Internal Medicine | DX: R06.02 Shortness of breath (principal) | CPT/HCPCS: 97110; 97164 ==

== ENCOUNTER → 2020-12-03 13:10 | Outpatient (BNVA) | payer MEDICARE, BC, SELFPAY | PROVIDERS: PCP Internal Medicine; Visit Provider Internal Medicine | DX: E03.9 Hypothyroidism, unspecified (principal) | CPT/HCPCS: 84443 ==

== ENCOUNTER 2020-12-20 06:00 | Outpatient (RCR) | payer MEDICARE, BC, SELFPAY | END 2021-01-19 23:59 | disposition home or self-care (01) | LOC: TPT 06:00 | PROVIDERS: PCP Internal Medicine; Visit Provider Internal Medicine | DX: R06.02 Shortness of breath (principal) | CPT/HCPCS: 97110; 97164 ==

== ENCOUNTER 2021-01-20 06:00 | Outpatient (RCR) | payer MEDICARE, BC, SELFPAY | END 2021-02-18 23:59 | disposition home or self-care (01) | LOC: TPT 06:00 | PROVIDERS: PCP Internal Medicine; Visit Provider Internal Medicine | DX: R06.02 Shortness of breath (principal) | CPT/HCPCS: 97110 ==

== ENCOUNTER → 2021-01-28 14:11 | Outpatient (BNVA) | payer MEDICARE, BC, SELFPAY | PROVIDERS: PCP Internal Medicine; Visit Provider Internal Medicine | DX: M79.10 Myalgia, unspecified site (principal) | CPT/HCPCS: 80053; 85651 ==

== ENCOUNTER 2021-10-24 15:10 | Outpatient (CLI) | payer MEDICARE, BC, SELFPAY ==
--- NOTE | 2021-10-24 16:00 | MR_ITS ---
WS: [id number] MRI RIGHT SHOULDER HISTORY: RIGHT shoulder pain for several months. COMPARISON: None available. TECHNIQUE: Multiplanar sequences of the shoulder joint are submitted. Mild AC joint arthritis. Joint space narrowing with small hypertrophic osteophytes. There is a small amount of fluid along the AC ligament and mild encroachment towards the myotendinous portion of the s upraspinatus muscle. Osteophyte from the distal undersurface of the acromion measures 4 x 4 mm with s ignificant encroachment and subacromial impingement. Small amount of fluid in the subacromial and sub deltoid bursa. No os acromion. Biceps tendon remains in the bicipital groove. High riding humeral head with moderate narrowing of the glenohumeral joint. Subchondral cysts in the humeral head posterior laterally. Focal area of increased T2 and proton density signal in the supraspinatus tendon at the level of the subacromial impingement. There is a significant amount of increased signal and mild thickening of the tendon. Most consistent with tendinopathy. There is an additional area along the intra-articular brianda face suspicious for superficial tear involving the anterior supraspinatus tendon directly over the valdes perior humeral head. There is no muscle atrophy. No edema. Small amount of fluid in the subscapularis recess. Abnormal shape and signal of the anterior labrum. No definite tear. This is most consistent with tend inopathy and fraying of the labrum with loss of cartilage along the glenoid. MR/MR shoulder RT wo con* [id number] IMPRESSION: 1. Mild AC joint arthritis with encroachment upon the supraspinatus. 2. Moderate subacromial impingement. 3. Minimal inferior articular surface tear supraspinatus directly over the hum eral head near the subacromial impingement. 4. Moderate supraspinatus tendinopathy directly over the humeral head at the s ite of the subacromial impingement. 5. Intrasubstance degeneration in the anterior labrum with loss of the glenoid cartilage.
== END 2021-10-24 15:11 | disposition home or self-care (01) ==
PROVIDERS: PCP Internal Medicine; Visit Provider Internal Medicine
DX: R29.898 Other symptoms and signs involving the musculoskeletal system (principal); M13.811 Other specified arthritis, right shoulder
CPT/HCPCS: 73221

== ENCOUNTER 2021-11-01 13:23 | Emergency (ER) | payer MEDICARE, BC, SELFPAY ==
[2021-11-01 13:32] VITALS: BP 149/72; RESP 16; TEMP 37.6; O2SAT 90
--- NOTE | 2021-11-01 13:33 | XRR_ITS ---
PROCEDURE INFORMATION: Exam: XR Chest Exam date and time: 11/01/2021 1:45 PM Age: 81 years old Clinical indication: Covid+ this AM TECHNIQUE: Imaging protocol: Radiologic exam of the chest. Views: 1 view. COMPARISON: CR XR chest 1V portable [id number] 04/18/2020 3:16 PM FINDINGS: Lungs: No focal peripheral lung consolidation, air bronchogram formation, or silhouette sign. Prior pulmonary granulomatous disease. Pleural spaces: No pleural effusion or pneumothorax. Heart/Mediastinum: The cardiac silhouette is not enlarged. The mediastinal contours are normal. Bones/joints: No acute osseous abnormality. XR/XR chest 1V portable [id number] IMPRESSION: No sign of pneumonia. However, CT CHEST would be more sensitive in detecting early/mild changes of COVID-19 pneumonia.
--- NOTE | 2021-11-01 13:38 | W.ED.COVID ---
HPI - COVID General: Chief Complaint: COVID symptoms Stated Complaint: covid + this morning Time Seen by Provider: 11/01/21 13:38 Triage information: Has fever, cough or shortness of breath. No known COVID + exposure last 14 days History of Present Illness: Patient had chills starting on evening. Patient felt poorly all day Wednesday. This morning patient had a COVID test that tested positive. Patient came in for evaluation and would like to be started on the medication that [place] was placed on. Patient appears mildly unwell but not toxic. Patient does use oxygen at bedtime and has a history of diabetes, hypothyroidism, aortic regurgitation, chronic kidney disease, and hyperlipidemia. Patient appears nontoxic. Patient appears in no pain. COVID 19 common symptoms: positive fever(s), chills, dyspnea (Chronic no changes) and body aches; negative throat pain, nausea, vomiting or diarrhea COVID 19 other sytmptoms: negative chest pain COVID Results: SARS-CoV-2 RNA (RT-PCR) Not detected (NOT DETECTED) 06/21/20 11:31 Review of Systems Const: Reports: fever(s), chills and body aches Eyes: Denies: change in vision ENMT: Denies: throat pain Card: Denies: chest pain Resp: Reports: dyspnea (Chronic no changes) GI: Denies: nausea, vomiting or diarrhea Skin/Breast: Denies: rash PFSH ED PFSH: Medical History Ascending aorta dilation Back pain, thoracic Benign essential HTN Bilateral primary osteoarthritis of knee Chronic depression Chronic pain CKD (chronic kidney disease), stage II Coronary artery disease Cyst of pancreas Essential tremor Generalized neuropathy H/O angiography Hyperlipidemia, unspecified Hypothyroidism, unspecified Iron deficiency Mild aortic regurgitation Mild mitral regurgitation Mild obstructive sleep apnea Mild tricuspid regurgitation Radiculopathy, cervical region Slow transit constipation Stress-induced cardiomyopathy Tremor, unspecified Type 2 diabetes mellitus without complications Vitamin D deficiency, unspecified Surgical History History of esophagogastroduodenoscopy (EGD) 12/03/2017- INTEALUMINAL GASTRIC BLOOD- GASTRITIS WITH BLEEDING S/P colonoscopy 12/03/2017- POLYPS REMOVED- REPEAT IN 5 YEARS Status post hip surgery Family History Other Diabetes Heart disease Social History Smoking and tobacco status: former smoker Alcohol intake: never History of recent travel: No Physical Exam Const: COMMON NORMALS: alert HENMT: COMMON NORMALS: normocephalic HEAD & SCALP: normocephalic THROAT: posterior oropharynx normal Neck/C-Spine: COMMON NORMALS: no meningeal signs Resp: COMMON NORMALS: normal respiratory effort and clear to auscultation bilaterally AUSCULTATION: clear to auscultation bilaterally Cardio: COMMON NORMALS: regular rate and regular rhythm RATE: regular rate RHYTHM: regular rhythm GI: COMMON NORMALS: Soft to palpation and non-tender PALPATION: Yes Soft to palpation Extremity: COMMON NORMALS: no pedal edema Neuro: SENSORIUM/ORIENTATION: Yes alert MENINGEAL SIGNS: Yes no meningeal signs Skin: COMMON NORMALS: no rashes or lesions noted GENERAL SKIN EXAM: no rashes or lesions noted Course Vital Signs: Vital signs: Vital Signs Temperature 99.6 F 11/01/21 13:32 Respiratory Rate 16 11/01/21 13:32 Blood Pressure 149/72 11/01/21 13:32 Pulse Oximetry 90 11/01/21 13:32 Oxygen Delivery Me thod 11/01/21 13:32 MDM - COVID Medical Decision Making 81-year-old female comes in today for complaints of fever and chills. Patient reports no other worsening symptoms or nausea vomiting or diarrhea. Patient did test positive for COVID-19 this morning. On exam patient has normal breath sounds, abdomen soft nontender with normal bowel sounds. No edema is noted in the extremities. Vital signs are normal. Differential diagnosis includes but not limited to pneumonia, COVID-19, dehydration. Chest x-ray was unremarkable. Reviewed exam with patient with recommendations for Paxlovid prescription and red flags to return to the ER. Patient reported understanding and agreed to plan. Patient was given a pulse oximetry to monitor for her pulse oxygen. Patient does have oxygen at home and recommended the use of it during the day and night as she needs it. Patient reported understanding and agreed to plan. Lab Data SARS-CoV-2 RNA (RT-PCR) Not detected (NOT DETECTED) 06/21/20 11:31 Discharge Plan Discharge Patient Disposition: Home Clinical Impression: COVID-19 Condition: Stable Prescriptions: New Paxlovid (EUA) 150-100 mg tablet See Rx Instructions .ROUTE .COMPLEX Qty: 20 0RF Rx Instructions: take ONE 150 mg tablet of nirmatrelvir with ONE 100 mg tablet of ritonavir twice daily for 5 days No Action Abilify 20 mg tablet 20 mg PO DAILY@22 Qty: 90 3RF isosorbide mononitrate 30 mg tablet extended release 24 hr 30 mg PO DAILY@08 Qty: 90 3RF verapamil 120 mg tablet 120 mg PO DAILY@08 Qty: 90 3RF clopidogrel 75 mg tablet 75 mg PO DAILY@08 Qty: 90 3RF amlodipine 10 mg tablet 10 mg PO BID Qty: 180 3RF (DME) blood-glucose meter Kit See Rx Instructions .ROUTE .MEDSUPPLY Qty: 1 0RF Rx Instructions: As directed pantoprazole 40 mg tablet,delayed release (DR/EC) 40 mg PO BID@08,22 Qty: 60 3RF duloxetine 60 mg capsule,delayed release(DR/EC) 60 mg PO DAILY@08 Qty: 90 3RF atorvastatin 20 mg tablet 20 mg PO DAILY@22 Qty: 30 3RF Hold Instructions: Doctor's Order losartan 50 mg tablet 50 mg PO DAILY@08 Qty: 90 3RF hydralazine 100 mg tablet See Rx Instructions .ROUTE .COMPLEX Qty: 90 6RF Dose Instruction: TAKE ONE TABLET BY MOUTH THREE TIMES DAILY Rx Instructions: TAKE ONE TABLET BY MOUTH THREE TIMES DAILY (DME) Comfort EZ Pen [place] 32 gauge x 5/16 needle See Rx Instructions .ROUTE .MEDSUPPLY Qty: 100 6RF Rx Instructions: inject two times daily meloxicam 15 mg tablet 15 mg PO DAILY@08 Qty: 90 3RF (DME) FreeStyle [place] 14 Day Sensor Kit See Rx Instructions .Route Qty: 2 12RF Rx Instructions: As directed cholecalciferol (vitamin D3) 1,250 mcg (50,000 unit) capsule 50,000 unit PO Q30D Qty: 1 6RF tramadol 50 mg tablet 50 mg PO Q8H PRN (Reason: pain) Qty: 60 5RF Levemir FlexTouch U-100 Insuln 100 unit/mL (3 mL) insulin pen 30 unit SUBCUT BID Qty: 15 3RF Rx Instructions: replacement script gabapentin 300 mg capsule 300 mg PO BID Qty: 60 5RF levothyroxine 175 mcg tablet 175 mcg PO DAILY Qty: 90 3RF trazodone 100 mg tablet 100 mg PO DAILY@22 Qty: 90 1RF Benadryl 25 mg Capsule 25 mg PO PRN fluticasone propionate 50 mcg/actuation spray,suspension 2 spray INTRANASAL DAILY PRN (Reason: Allergy Symptoms) Rx Instructions: administer into each nostril ondansetron 4 mg tablet,disintegrating 4 mg PO Q6H PRN (Reason: nausea and vomiting) Qty: 14 0RF dicyclomine 20 mg tablet 20 mg PO BID PRN (Reason: abdominal pain) Qty: 20 0RF Discharge Orders: Discharge ED (Routine); Ordered 11/01/21 Ordered By: Tuan Posey Referrals: Andrea Katz MD [Primary Care Provider] - Discharge Diet: Usual diet Discharge Activity: Increase activity as tolerated Patient Instructions: COVID-19 (Coronavirus Disease 2019) (ED) Activity Restrictions/Additional Instructions: Use acetaminophen, Tylenol, 2 tablets every 6 hours as needed for pain and fever. Drink plenty of water to stay well-hydrated with your fever. Take medication as directed for the treatment of COVID-19. Monitor oxygen saturation and return to the ER for oxygen saturation less than 90%. If you notice an oxygen saturation less than 90% get up and move around take a few deep breaths and if the oxygen recovers to above 90% you can stay at home but if the oxygen does not recover or worsens with activity you need to be reevaluated in the ER. Usual home oxygen as needed for feelings of shortness of breath. Follow-up with primary care for further instruction. Return to ER for increased shortness of breath, chest pain, or new concerns. Coding Level of Care Code ED Landing Scaler for Kenneth Yang
[2021-11-01 13:55] VITALS: PULSE 79; RESP 20; O2SAT 92
== END 2021-11-01 14:39 | disposition home or self-care (01) ==
PROVIDERS: Emergency Provider Nurse Practitioner Family; PCP Internal Medicine
DX: U07.1 COVID-19 (principal); Z79.02 Long term (current) use of antithrombotics/antiplatelets; Z79.4 Long term (current) use of insulin; I12.9 Hypertensive chronic kidney disease with stage 1 through stage 4 chronic kidney disease, or unspecified chronic kidney disease; E11.22 Type 2 diabetes mellitus with diabetic chronic kidney disease; N18.2 Chronic kidney disease, stage 2 (mild); I25.10 Atherosclerotic heart disease of native coronary artery without angina pectoris; E78.5 Hyperlipidemia, unspecified; Z87.891 Personal history of nicotine dependence
CPT/HCPCS: 71045; 99283

== ENCOUNTER 2021-11-04 13:50 | Inpatient (IN) | payer MEDICARE, BC, SELFPAY ==
[2021-11-04 14:22] VITALS: BP 98/60; PULSE 76; RESP 18; TEMP 36.4; O2SAT 91; BMI 35.4
--- NOTE | 2021-11-04 14:54 | XRR_ITS ---
PROCEDURE INFORMATION: Exam: XR Chest Exam date and time: 11/04/2021 3:03 PM Age: 81 years old Clinical indication: Dyspnea TECHNIQUE: Imaging protocol: Radiologic exam of the chest. Views: 1 view. COMPARISON: CR XR chest 1V portable [id number] 11/01/2021 1:45 PM FINDINGS: Lungs: Calcified granulomas again noted. No consolidation. Pleural spaces: Unremarkable. No pleural effusion. No pneumothorax. Heart/Mediastinum: Unremarkable. No cardiomegaly. Bones/joints: Unremarkable. XR/XR chest 1V portable [id number] IMPRESSION: No acute findings.
--- NOTE | 2021-11-04 14:54 | ECG_ITS ---
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 Measurements Intervals [place] Rate: 71 P: NM: QRS: -53 QRSD: 114 T: 80 QT: 320 QTc: 350 Interpretive Statements SUPRAVENTRICULAR RHYTHM RIGHT BUNDLE BRANCH BLOCK LEFT ANTERIOR FASCICULAR BLOCK MINIMAL VOLTAGE CRITERIA FOR LVH, CONSIDER NORMAL VARIANT POSSIBLE ANTEROSEPTAL MYOCARDIAL INFARCTION , OF INDETERMINATE AGE Compared to ECG 04/18/2020 15:18:55 Supraventricular rhythm now present Sinus tachycardia no longer present Myocardial infarct finding still present Electronically Signed On 11-04-2021 17:54:56 CDT by Selene Valdivia M.D. [id number]
--- NOTE | 2021-11-04 14:58 | W.ED.GENADLT ---
HPI - General Adult General: Chief complaint: Shortness of Breath/Dyspnea Stated complaint: SOB, Positive covid Time Seen by Provider: 11/04/21 14:54 History of Present Illness: Patient is an 81-year-old female who was recently diagnosed with COVID 2 days ago presenting to the emergency room with concerns of worsening diarrhea and shortness of breath x 3 days. Patient tells me that she has been feeling well since discharge from ER 3 days ago. Patient admits she has had significant diarrhea and has not been able to tolerate anything. Patient reports diffuse body consent to come to the emergency for further evaluation Onset:3 days ago Duration:3 days Location:home Severity:moderate Associated symptoms: Reports dyspnea and nausea; Deny chest pain, rash, palpitations or vomiting Review of Systems Const: Denies: fever(s) or chills Eyes: Denies: change in vision ENMT: Denies: mouth pain Card: Denies: chest pain or palpitations Resp: Reports: dyspnea and non-productive cough GI: Reports: nausea, diarrhea and other (+decreased po intake); Denies: abdominal pain or vomiting : Denies: dysuria Musc: Denies: extremity pain Skin/Breast: Denies: rash or new lesions Neuro: Denies: weakness in extremities Psych: Reports: other (Normal mood) Marcio/Lymph: Denies: easy bruising PFSH ED PFSH: Medical History Ascending aorta dilation Back pain, thoracic Benign essential HTN Bilateral primary osteoarthritis of knee Chronic depression Chronic pain CKD (chronic kidney disease), stage II Coronary artery disease Cyst of pancreas Essential tremor Generalized neuropathy H/O angiography Hyperlipidemia, unspecified Hypothyroidism, unspecified Iron deficiency Mild aortic regurgitation Mild mitral regurgitation Mild obstructive sleep apnea Mild tricuspid regurgitation Radiculopathy, cervical region Slow transit constipation Stress-induced cardiomyopathy Tremor, unspecified Type 2 diabetes mellitus without complications Vitamin D deficiency, unspecified Surgical History History of esophagogastroduodenoscopy (EGD) 12/03/2017- INTEALUMINAL GASTRIC BLOOD- GASTRITIS WITH BLEEDING S/P colonoscopy 12/03/2017- POLYPS REMOVED- REPEAT IN 5 YEARS Status post hip surgery Family History Other Diabetes Heart disease Social History Smoking and tobacco status: former smoker Alcohol intake: never History of recent travel: No Physical Exam Const: COMMON NORMALS: alert HENMT: COMMON NORMALS: atraumatic HEAD & SCALP: atraumatic MOUTH: moist mucous membranes abnormal Eye: COMMON NORMALS: EOMs intact bilaterally and conjunctivae normal CONJUNCTIVA: Yes conjunctivae normal Neck/C-Spine: COMMON NORMALS: full ROM and supple Resp: COMMON NORMALS: normal respiratory effort and clear to auscultation bilaterally AUSCULTATION: clear to auscultation bilaterally Cardio: COMMON NORMALS: regular rate RATE: regular rate GI: COMMON NORMALS: Soft to palpation and non-tender PALPATION: Yes Soft to palpation OTHER: No focal TTP. NO guarding rebound, guarding, rigidity. No CVA tenderness to percussion. Neg Glez/Neg McBurney's point tenderness, no suprabupic tenderness to palpation. Extremity: COMMON NORMALS: full ROM Neuro: SENSORIUM/ORIENTATION: Yes alert MOTOR EXAM: No Abnormal motor strength present and Other motor observations present (no focal motor deficits) Psych: COMMON NORMALS: speech normal SPEECH: Yes normal speech MOOD & AFFECT: Yes euthymic mood Course Vital Signs: Vital signs: Vital Signs Temperature 97.6 F 11/04/21 14:22 Pulse Rate 76 11/04/21 14:22 Respiratory Rate 18 11/04/21 14:22 Blood Pressure 98/60 11/04/21 14:22 Pulse Oximetry 91 11/04/21 14:22 Oxygen Delivery Me thod 11/04/21 14:22 MDM - General Adult Medical Decision Making 81-year-old female with history of heart failure presenting to the emergency room for concerns of dehydration worsening cough. On exam, patient noted to be satting 91% on room air that improved to 93% on 2 to 3 L. Patient also appears to be dry on exam. Dynamically stable. Patient has a creatinine of 2.1 up from baseline 1.4. Patient received remdesivir and Decadron. D-dimer appears within normal limit. X-ray chest clear. Patient will be in the hospital for further management COVID in the setting of dehydration, ALTHEA on CKD, and new oxygen requirement. Disposition: admission Lab Data : 11/04/21 15:10 11/04/21 15:10 Radiology Impressions Chest X-Ray 11/04/21 14:54 IMPRESSION: No acute findings. Laboratory Results WBC 9.2 10^3/uL (4.0-10.0) 11/04/21 15:10 RBC 3.72 10^6/uL (4.1-5.3) L 11/04/21 15:10 Hgb 11.1 g/dL (11.5-15.3) L 11/04/21 15:10 Hct 35.3 % (37.0-47.0) L 11/04/21 15:10 MCV 94.9 fl (81-99) 11/04/21 15:10 MCH 29.8 pg (28.0-34.0) 11/04/21 15:10 MCHC 31.4 g/dL (30.0-36.0) 11/04/21 15:10 RDW 13.2 % (12.1-15.1) 11/04/21 15:10 Plt Count 305 10^3/cmm (130-400) 11/04/21 15:10 MPV 10.4 fL (7.4-10.4) 11/04/21 15:10 Neut % (Auto) 71.6 % 11/04/21 15:10 Lymph % (Auto) 19.6 % 11/04/21 15:10 [place] % (Auto) 6.8 % 11/04/21 15:10 Eos % (Auto) 0.9 % 11/04/21 15:10 Baso % (Auto) 0.3 % 11/04/21 15:10 Neut # (Auto) 6.59 10^3/uL (1.8-7.7) 11/04/21 15:10 Lymph # (Auto) 1.8 10^3/uL (0.8-4.8) 11/04/21 15:10 [place] # (Auto) 0.6 10^3/uL (0.2-0.9) 11/04/21 15:10 Eos # (Auto) 0.1 10^3/uL (0.0-0.8) 11/04/21 15:10 Baso # (Auto) 0.0 10^3/uL (0.0-0.1) 11/04/21 15:10 Nucleated RBC % (auto) 0 % 11/04/21 15:10 Nucleated RBCs # 0.0 /100WBC 11/04/21 15:10 D-Dimer 0.58 ug/mIFEU (0-0.59) 11/04/21 15:10 Sodium 137 mmol/L (136-145) 11/04/21 15:10 Potassium 5.0 mmol/L (3.5-5.1) 11/04/21 15:10 Chloride 97 mmol/L (98-107) L 11/04/21 15:10 Carbon Dioxide 23 mmol/L (22-29) 11/04/21 15:10 Anion Gap 22.0 (5-19) H 11/04/21 15:10 BUN 20 mg/dL (8-23) 11/04/21 15:10 Creatinine 2.1 mg/dL (0.5-0.9) H 11/04/21 15:10 GFR Calculation Not Reportable 11/04/21 15:10 Glucose 207 mg/dL (65-115) H 11/04/21 15:10 Calculated Osmolality 293 mOsm/kg (285-295) 11/04/21 15:10 Calcium 8.3 mg/dL (8.5-10.5) L 11/04/21 15:10 Troponin T Baseline 33 ng/L (0-10) H 11/04/21 15:10 C-Reactive Protein 27.2 mg/L (0.0-4.9) H 11/04/21 15:10 NT-Pro-B Natriuret Pep 1983 pg/mL (0-450) H 11/04/21 15:10 Procalcitonin 0.09 ng/mL (0-0.5) 11/04/21 15:10 Imaging Data Other Imaging: Radiologist's impression: [facility] [address] [place] [address] XRay Report Signed Patient: Savannah Wu Unit #: [id number] : 1940 Age/Sex: 81 / F ADM Date: 11/04/21 Loc: ER Room/Bed: Attending Dr: Ordering Provider/Ordering MD: Aldo Romano MD Date of Service: 11/04/21 Procedure(s): XR chest 1V portable [id number] Accession Number(s): [id number] Report Number: [id number] PROCEDURE INFORMATION: Exam: XR Chest Exam date and time: 11/04/2021 3:03 PM Age: 81 years old Clinical indication: Dyspnea TECHNIQUE: Imaging protocol: Radiologic exam of the chest. Views: 1 view. COMPARISON: CR XR chest 1V portable [id number] 11/01/2021 1:45 PM FINDINGS: Lungs: Calcified granulomas again noted. No consolidation. Pleural spaces: Unremarkable. No pleural effusion. No pneumothorax. Heart/Mediastinum: Unremarkable. No cardiomegaly. Bones/joints: Unremarkable. XR/XR chest 1V portable [id number] IMPRESSION: No acute findings. ? Dictated By: Nikita Whitten DO Signed By: Nikita Whitten DO Signed Date/Time: 11/04/21 1526 DD/ 1503 Discharge Plan Discharge Patient Disposition: Admitted As Inpatient Clinical Impression: Acute kidney injury superimposed on chronic kidney disease, COVID, Hypoxemia, Dehydration Condition: Stable Coding Level of Care Code ED Waste Machine Operator for Chg Fwd Exam Comprehensive
[2021-11-04 15:24] LABS: Basophils % 0.3 %; Eosinophils # 0.1 10^3/uL (0.0-0.8); Eosinophils % 0.9 %; Hematocrit 35.3 % (37.0-47.0); Hemoglobin 11.1 g/dL (11.5-15.3); Lymphocytes # 1.8 10^3/uL (0.8-4.8); Lymphocytes % 19.6 %; Mean Corpuscular HGB Conc 31.4 g/dL (30.0-36.0); Mean Corpuscular Hemoglobin 29.8 pg (28.0-34.0); Mean Corpuscular Volume 94.9 fl (81-99); Mean Platelet Volume 10.4 fL (7.4-10.4); Monocytes # 0.6 10^3/uL (0.2-0.9); Monocytes % 6.8 %; Neutrophils # 6.59 10^3/uL (1.8-7.7); Neutrophils % 71.6 %; Nucleated Red Blood Cells % 0 %; Platelet Count 305 10^3/cmm (130-400); Red Blood Count 3.72 10^6/uL (4.1-5.3); Red Cell Distribution Width 13.2 % (12.1-15.1); White Blood Count 9.2 10^3/uL (4.0-10.0)
[2021-11-04 15:53] LABS: Troponin(5th) Baseline 33 ng/L (0-10)
[2021-11-04 15:54] LABS: NT Pro B Type Natriuretic Pept 1983 pg/mL (0-450); Procalcitonin 0.09 ng/mL (0-0.5)
[2021-11-04 16:05] LABS: Blood Urea Nitrogen 20 mg/dL (8-23); C Reactive Protein 27.2 mg/L (0.0-4.9); Calcium 8.3 mg/dL (8.5-10.5); Carbon Dioxide 23 mmol/L (22-29); Chloride 97 mmol/L (98-107); Glucose 207 mg/dL (65-115); Osmolality Calculated 293 mOsm/kg (285-295); Sodium 137 mmol/L (136-145)
[2021-11-04 17:02] LABS: D Dimer 0.58 ug/mIFEU (0-0.59)
--- NOTE | 2021-11-04 17:17 | ECG_ITS ---
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 Measurements Intervals [place] Rate: 67 P: [place]: QRS: -50 QRSD: 118 T: 0 QT: 235 QTc: 248 Interpretive Statements SUPRAVENTRICULAR RHYTHM RIGHT BUNDLE BRANCH BLOCK [120+ ms QRS DURATION, UPRIGHT V1, 40+ ms S IN I/aVL/V4/V5/V6] LEFT ANTERIOR FASCICULAR BLOCK [QRS AXIS <= -45, QR IN I, RS IN II] POSSIBLE ANTEROSEPTAL MYOCARDIAL INFARCTION , PROBABLY OLD [30 ms Q WAVE IN V1-V4] Compared to ECG 11/04/2021 14:34:43 No significant changes Electronically Signed On 11-04-2021 18:11:52 CDT by Selene Valdivia M.D. [id number]
[2021-11-04 17:47] LABS: Troponin 5 2HR 35.37 ng/L (0-10)
--- NOTE | 2021-11-04 17:56 | PM.HP ---
Providers/Chief Complaint Primary Care Provider: Andrea Katz MD Chief Complaint: SOB, Positive covid History of Present Illness Pleasant 81-year-old lady returns to the hospital with improving symptoms, having recently this positive for COVID-19, having been here and assessed in ER on 11/01, returns with generalized weakness, mild headache, cough, fatigability. In ER is noted to have new hypoxia, not normally requiring oxygen, currently needing to start 2 L nasal cannula oxygen. Review of Systems Const: Reports: fatigue and malaise Eyes: Denies: change in vision, eye discomfort or eye redness ENMT: Denies: throat pain, oral sores or ear or mastoid pain Card: Denies: chest pain, edema, pre-syncope or dyspnea on exertion Resp: Reports: dyspnea and non-productive cough; Denies: change in phlegm color or hemoptysis GI: Denies: abdominal pain, nausea, vomiting, diarrhea, constipation, hematochezia or melena : Denies: flank pain, urinary frequency or hematuria Musc: Denies: back pain, joint swelling or joint redness Skin/Breast: Denies: rash or new lesions Neuro: Reports: headache(s); Denies: numbness in extremities, weakness in extremities, dizziness, confusion or seizure-like activity Endo: Denies: polyuria or polydipsia Marcio/Lymph: Denies: easy bleeding or tender lymph nodes All/Imm: Denies: urticaria or tongue swelling Medications/Allergies Home Medications Medication Instructions Recorded Confirmed Last Taken Type blood-glucose meter #1 ea 03/20/20 11/04/21 Unknown Rx dicyclomine 20 mg tablet 20 mg PO BID PRN abdominal pain 04/18/20 11/04/21 Unknown Rx #20 tabs diphenhydramine HCl 25 mg capsule 25 mg PO DAILY PRN Allergy Symptoms 04/18/20 11/04/21 04/18/20 History (Benadryl) fluticasone propionate 50 2 spray intranasal DAILY PRN 04/18/20 11/04/21 Unknown History mcg/actuation nasal Allergy Symptoms spray,suspension ondansetron 4 mg disintegrating 4 mg PO Q6H PRN nausea and 04/18/20 11/04/21 Unknown Rx tablet vomiting #14 tabs pantoprazole 40 mg tablet,delayed 40 mg PO BID@ #60 tabs 05/06/20 11/04/21 11/04/21 Rx release duloxetine 60 mg capsule,delayed 60 mg PO DAILY@08 #90 caps 12/20/20 11/04/21 11/04/21 Rx release aripiprazole 20 mg tablet 20 mg PO DAILY@22 #90 tabs 12/25/20 11/04/21 11/03/21 Rx atorvastatin 20 mg tablet 20 mg PO DAILY@22 #30 tabs 02/17/21 11/04/21 11/03/21 Rx amlodipine 10 mg tablet 10 mg PO BID #180 tabs 04/09/21 11/04/21 11/04/21 Rx clopidogrel 75 mg tablet 75 mg PO DAILY@08 #90 tabs 04/09/21 11/04/21 11/04/21 Rx isosorbide mononitrate 30 mg 30 mg PO DAILY@08 #90 tabs 04/09/21 11/04/21 11/04/21 Rx tablet,extended release 24 hr verapamil 120 mg tablet 120 mg PO DAILY@08 #90 tabs 04/09/21 11/04/21 11/04/21 Rx flash glucose sensor (FreeStyle #2 ea 08/04/21 11/04/21 Unknown Rx Nagi 14 Day Sensor) meloxicam 15 mg tablet 15 mg PO DAILY@08 #90 tabs 08/04/21 11/04/21 11/04/21 Rx pen needle, diabetic 32 gauge x #100 ea 08/04/21 11/04/21 Unknown Rx 08/04 (Comfort EZ Pen [place]) cholecalciferol (vitamin D3) 1,250 50,000 unit PO Q30D #1 cap 08/19/21 11/04/21 Unknown Rx mcg (50,000 unit) capsule tramadol 50 mg tablet 50 mg PO Q8H PRN pain #60 tabs 08/28/21 11/04/21 Unknown Rx insulin detemir U-100 100 unit/mL 30 unit (0.3 mL) SUBCUT BID #15 mL 09/15/21 11/04/21 11/04/21 Rx (3 mL) subcutaneous pen (Levemir FlexTouch U-100 Insulin) gabapentin 300 mg capsule 300 mg PO BID #60 caps 09/23/21 11/04/21 11/04/21 Rx levothyroxine 175 mcg tablet 175 mcg PO DAILY #90 tabs 09/23/21 11/04/21 11/04/21 Rx nirmatrelvir 150 mg-ritonavir 100 See Rx Instructions PO .COMPLEX 11/01/21 11/04/21 11/04/21 Rx mg tablet (EUA) (Paxlovid) #20 tabs clonidine HCl 0.1 mg tablet 0.1 mg PO DAILY PRN Blood Pressure 11/04/21 11/04/21 Unknown History diclofenac sodium 1 % topical gel 2 g topical QID PRN Pain 11/04/21 11/04/21 Unknown History hydralazine 100 mg tablet 100 mg PO TID 11/04/21 11/04/21 11/04/21 History losartan 100 mg tablet 100 mg PO DAILY 11/04/21 11/04/21 11/04/21 History trazodone 100 mg tablet 100 mg PO BEDTIME 11/04/21 11/04/21 11/03/21 History Allergies Allergy/AdvReac Type Severity Reaction Status Date / Time acebutolol Allergy Unknown Verified 10/07/21 07:49 atenolol Allergy Unknown Verified 10/07/21 07:49 betaxolol Allergy Unknown Verified 10/07/21 07:49 bisoprolol Allergy Unknown Verified 10/07/21 07:49 carvedilol Allergy Unknown Verified 10/07/21 07:49 Cephalosporins Allergy Unknown Verified 10/07/21 07:49 esmolol Allergy Unknown Verified 10/07/21 07:49 iodine Allergy Unknown Verified 10/07/21 07:49 labetalol Allergy Unknown Verified 10/07/21 07:49 levobunolol Allergy Unknown Verified 10/07/21 07:49 metipranolol Allergy Unknown Verified 10/07/21 07:49 metoprolol Allergy Unknown Verified 10/07/21 07:49 nadolol Allergy Unknown Verified 10/07/21 07:49 Penicillins Allergy Unknown Verified 10/07/21 07:49 pindolol Allergy Unknown Verified 10/07/21 07:49 pneumococcal vaccine Allergy Unknown Verified 10/07/21 07:49 [From Pneumovax 23] propoxyphene Allergy Unknown Verified 10/07/21 07:49 propranolol Allergy Unknown Verified 10/07/21 07:49 sotalol Allergy Unknown Verified 10/07/21 07:49 Sulfa (Sulfonamide Allergy Unknown Verified 10/07/21 07:49 Antibiotics) tetracycline Allergy Unknown Verified 10/07/21 07:49 timolol Allergy Unknown Verified 10/07/21 07:49 chlorpheniramine AdvReac Mild Feels Verified 10/07/21 07:49 [From Aller-Chlor jittery Decongestant] pseudoephedrine AdvReac Mild Feels Verified 10/07/21 07:49 [From Aller-Chlor jittery Decongestant] beta grant Allergy Unknown Uncoded 10/07/21 07:49 PFSH Acute PFSH: Medical History Ascending aorta dilation Back pain, thoracic Benign essential HTN Bilateral primary osteoarthritis of knee Chronic depression Chronic pain CKD (chronic kidney disease), stage II Coronary artery disease Cyst of pancreas Essential tremor Generalized neuropathy H/O angiography Hyperlipidemia, unspecified Hypothyroidism, unspecified Iron deficiency Mild aortic regurgitation Mild mitral regurgitation Mild obstructive sleep apnea Mild tricuspid regurgitation Radiculopathy, cervical region Slow transit constipation Stress-induced cardiomyopathy Tremor, unspecified Type 2 diabetes mellitus without complications Vitamin D deficiency, unspecified Surgical History History of esophagogastroduodenoscopy (EGD) 12/03/2017- INTEALUMINAL GASTRIC BLOOD- GASTRITIS WITH BLEEDING S/P colonoscopy 12/03/2017- POLYPS REMOVED- REPEAT IN 5 YEARS Status post hip surgery Family History Other Diabetes Heart disease Social History Smoking and tobacco status: former smoker Alcohol intake: never History of recent travel: No Vitals/I&O/Wt Last Vital Signs Temp 97.6 F 11/04/21 14:22 Pulse 76 11/04/21 14:22 Resp 18 11/04/21 14:22 BP 98/60 11/04/21 14:22 Pulse Ox 91 11/04/21 14:22 O2 Del Method 11/04/21 14:22 Weight last 48 hrs Weight 90.718 kg Physical Exam Const: COMMON NORMALS: patient oriented x3 and alert GENERAL APPEARANCE: cooperative ORIENTATION/CONSCIOUSNESS: Yes awake HENMT: COMMON NORMALS: oropharynx normal Neck/C-Spine: COMMON NORMALS: no JVD Resp: COMMON NORMALS: normal respiratory effort and clear to auscultation bilaterally AUSCULTATION: clear to auscultation bilaterally Cardio: COMMON NORMALS: no JVD, regular rhythm, S1 normal heart sound present, S2 normal heart sound present and No murmurs present (Cardio) RHYTHM: regular rhythm HEART SOUNDS: S1 normal heart sound present and S2 normal heart sound present GI: COMMON NORMALS: Normal to inspection, nondistended, normoactive bowel sounds present, Soft to palpation and non-tender PALPATION: Yes Soft to palpation Extremity: COMMON NORMALS: no joint enlargement and no pedal edema Neuro: COMMON NORMALS: patient oriented x3 and moves all extremities SENSORIUM/ORIENTATION: Yes alert Skin: COMMON NORMALS: no rashes or lesions noted GENERAL SKIN EXAM: no rashes or lesions noted Data : 11/04/21 15:10 11/04/21 15:10 A&P Assessment and plan (1) Hypoxemia: New hypoxia with COVID-19, requiring 2 L nasal cannula oxygen. Continue remdesivir, Decadron. Oxygen support. Wean down as tolerating. D-dimer checked and normal. Will trend while in hospital. DVT prophylaxis. Status: Acute (2) COVID-19: Status: Acute (3) Acute kidney injury superimposed on chronic kidney disease: Hold NSAID. Hold losartan. Blood pressure on soft side. Has not been feeling well recently, poor appetite. Does have peripheral edema, avoid excessive hydration. Oral intake as tolerating. Reassess renal function. Lower extremity edema: Avoid excessive hydration. Edema despite not good oral intake recently. Assess TTE. Status: Acute Plan Additional chronic medical problems noted. Attestations Medical Necessity Statement*: Admission of over 2 midnights is anticipated for assessment of management of new hypoxia with COVID-19 with oxygen requirement, as well as ALTHEA superimposed on CKD. Coding Level of Care Code Acute Bike Technician for Kenneth Yang Diagnoses Hypoxemia R09.02 COVID-19 U07.1 Acute kidney injury superimposed on chronic kidney disease N17.9; N18.9
[2021-11-04 17:59] LABS: Troponin 5 2HR Delta 2.37 ABS# (0-10)
--- NOTE | 2021-11-04 18:04 | USCV_ITS ---
Savannah Wu Age: 81 Gender: F : 1940 Exam Date: 11/04/2021 21:01 Ordering Phys: Juve Vizcarra MD Technologist: KAMRAN Exam Location: [facility] [place] Indication: COVID isolation, sob, weakness, bilateral lower extremity edema, history of IA 2011 BP: 98 / 60 HR: 74 Rhythm: Sinus Technical Quality: Adequate MEASUREMENTS (Male / Female) Normal Values 2D ECHO LV Diastolic Diameter PLAX 3.6 cm 4.2 - 5.9 / 3.9 - 5.3 cm LV Systolic Diameter PLAX 2.2 cm IVS Diastolic Thickness 1.7 cm 0.6 - 1.0 / 0.6 - 0.9 cm IVS Systolic Thickness 2.0 cm LVPW Diastolic Thickness 1.3 cm 0.6 - 1.0 / 0.6 - 0.9 cm LVPW Systolic Thickness 1.9 cm LVOT Diameter 1.8 cm LV Ejection Fraction 2D Teich 69.3 % LV Ejection Fraction MOD 2C 71.1 % LV Ejection Fraction 2C AL 71.4 % LA Diameter 4.2 cm LA Width 4.3 cm LA Height 5.7 cm RA Width 3.7 cm RA Height 4.5 cm Aorta at Sinotubular Diameter 2.9 cm IVC Diameter 1.6 cm M-MODE Aortic Annulus Diameter 3.0 cm LA Ao Ratio MM 1.5 MV E Point Septal Separation 0.3 cm DOPPLER AV Peak Velocity 189.0 cm/s LVOT Peak Velocity 158.0 cm/s AV Area Cont Eq vti 2.3 cm squared AV Area Cont Eq pk 2.2 cm squared MV Peak Velocity 150.0 cm/s MV Area PHT 3.2 cm squared Mitral E to A Ratio 1.0 MV E' Velocity 71.0 cm/s Mitral E to MV E' Ratio 11.2 Mitral E to LV E' Lateral Ratio 9.1 Mitral E to LV E' Septal Ratio 14.7 TR Peak Velocity 290.8 cm/s TR Peak Gradient 33.8 mmHg TV Peak E Velocity 71.0 cm/s Right Atrial Pressure 5.0 mmHg Pulmonary Artery Systolic Pressu 38.8 mmHg PV Peak Velocity 167.0 cm/s RV Acceleration Time 0.1 s RV Ejection Time 0.4 s RV AcT/ET 0.2 FINDINGS Left Ventricle Left ventricle is normal in size. LV systolic function is normal with EF of 55 to 60%. No regional wall motion abnormalities are seen. Moderate left ventricular hypertrophy is seen. Right Ventricle Normal in size and function Right Atrium Normal in size Left Atrium Normal in size Mitral Valve Mild to moderate mitral annular calcification. Mild mitral regurgitation. Aortic Valve Aortic valve is grossly normal. Mild to moderate aortic regurgitation. No significant stenosis seen. Tricuspid Valve Mild tricuspid regurgitation. Insufficient TR jet to calculate RVSP. Pulmonic Valve Not well-visualized Pericardium Small sized pericardial effusion is seen Aorta Mildly dilated ascending aorta IVC CONCLUSIONS LV systolic function is normal with EF 55 to 60% Moderate left ventricular hypertrophy is seen. Mild to moderate mitral annular calcification. Mild mitral regurgitation. Aortic valve is grossly normal. Mild to moderate aortic regurgitation. Mild tricuspid regurgitation Small sized pericardial effusion noted. Mildly dilated ascending aorta. Compared to prior echocardiogram from 03/05/2020, ascending aorta is mildly dilated and small sized pericardial effusion is seen Ethan Chavez MD (Electronically Signed) Final Date: 05 November 2021 11:23 S
[2021-11-04] MEDS: dexamethasone 10 mg/mL INJ 6 MG IVP (19:24)
[2021-11-04 19:25] VITALS: BP 136/66; PULSE 59; RESP 18; O2SAT 94
[2021-11-04 20:31] LABS: Adenovirus Not Detected (NOT DETECT); Chlamydia Pneumoniae Not Detected (NOT DETECT); Coronavirus 229E,HKU1,NL63,OC4 Not Detected (NOT DETECT); Human Metapneumovirus Not Detected (NOT DETECT); Human Rhinovirus/Enterovirus Not Detected (NOT DETECT); Influenza A Not Detected (NOT DETECT); Influenza A H1 Not Detected (NOT DETECT); Influenza A H1-2009 Not Detected (NOT DETECT); Influenza A H3 Not Detected (NOT DETECT); Influenza B Not Detected (NOT DETECT); Mycoplasma Pneumoniae Not Detected (NOT DETECT); Parainfluenza Virus Type 1 Not Detected (NOT DETECT); Parainfluenza Virus Type 2 Not Detected (NOT DETECT); Parainfluenza Virus Type 3 Not Detected (NOT DETECT); Parainfluenza Virus Type 4 Not Detected (NOT DETECT); Respiratory Syncytial Virus A Not Detected (NOT DETECT); Respiratory Syncytial Virus B Not Detected (NOT DETECT); SARS-COV-2 Detected (NOT DETECT)
[2021-11-04 20:44] VITALS: BP 126/66; PULSE 78; RESP 16; TEMP 37.1; O2SAT 93; BMI 28.5
[2021-11-04] MEDS: enoxaparin 40 mg/0.4 mL Syringe SUBCUT (23:10)
[2021-11-05] VITALS (11 sets, daily range): BP systolic 120–157; BP diastolic 66–74; PULSE 60–102; RESP 15–16; TEMP 36.6–37.1; O2SAT 94–98; BMI 37.6
[2021-11-05 01:12] LABS: Glucose Point of Care 313 mg/dL (70-110)
[2021-11-05] MEDS: acetaminophen 325 mg Tablet 650 MG PO ×2 (01:49→15:52)
[2021-11-05 05:16] LABS: Basophils % 0.2 %; Lymphocytes # 1.1 10^3/uL (0.8-4.8); Mean Corpuscular HGB Conc 31.4 g/dL (30.0-36.0); Mean Corpuscular Hemoglobin 29.5 pg (28.0-34.0); Mean Corpuscular Volume 93.8 fl (81-99); Mean Platelet Volume 10.4 fL (7.4-10.4); Monocytes # 0.1 10^3/uL (0.2-0.9); Monocytes % 1.1 %; Neutrophils # 5.21 10^3/uL (1.8-7.7); Neutrophils % 80.6 %; Nucleated Red Blood Cells % 0 %; Platelet Count 280 10^3/cmm (130-400); Red Blood Count 3.73 10^6/uL (4.1-5.3); Red Cell Distribution Width 12.9 % (12.1-15.1); White Blood Count 6.5 10^3/uL (4.0-10.0)
[2021-11-05 05:32] LABS: D Dimer 0.48 ug/mIFEU (0-0.59)
[2021-11-05 05:45] LABS: Alanine Aminotransferase 14 U/L (0-33); Albumin Level 3.8 g/dL (3.5-5.2); Alkaline Phosphatase 56 U/L (35-105); Anion Gap 17.2 (5-19); Aspartate Amino Transferase 13 U/L (0-32); Blood Urea Nitrogen 27 mg/dL (8-23); Calcium 8.7 mg/dL (8.5-10.5); Carbon Dioxide 26 mmol/L (22-29); Chloride 97 mmol/L (98-107); Globulin 2.9 g/dL (1.3-4.6); Glucose 288 mg/dL (65-115); Osmolality Calculated 296 mOsm/kg (285-295); Potassium 5.2 mmol/L (3.5-5.1); Sodium 135 mmol/L (136-145); Total Bilirubin 0.3 mg/dL (0.15-1.2); Total Protein 6.7 g/dL (6.6-8.7)
[2021-11-05 06:27] LABS: Glucose Point of Care 285 mg/dL (70-110)
[2021-11-05] MEDS: dexamethasone 10 mg/mL INJ 6 MG IVP (09:16)
[2021-11-05] MEDS: insulin lispro 100 unit/1 mL SUBCUT ×3 (09:17→17:13)
[2021-11-05 11:03] LABS: Glucose Point of Care 382 mg/dL (70-110)
[2021-11-05] MEDS: remdesivir 200 MG in sodium chloride 0.9% (100 ml) 60 ML 100 MG IV (12:00)
[2021-11-05 16:55] LABS: Glucose Point of Care 239 mg/dL (70-110)
--- NOTE | 2021-11-05 19:14 | P.DS_ITS ---
Discharge Providers Date of Admission: 11/04/21 16:57 Date of Discharge: November 05, 2021 Attending Provider at Admission: Juve Vizcarra Attending Provider at Discharge: Juve Vizcarra Primary Care Provider: Andrea Katz MD Diagnoses at Discharge Discharge Diagnosis (1) Hypoxemia: Status: Acute (2) COVID-19: Status: Acute (3) Acute kidney injury superimposed on chronic kidney disease: Status: Acute Reason for Visit Reason for Visit: SOB, Positive covid Hospital Course Hospital Course Pleasant 81-year-old lady was admitted for assessment management after return to hospital after recent visit due to COVID-19 to ER, she returned with persistent generalized weakness, mild headache, cough, easy fatigability. In ER she was noted to have new onset oxygen requirement of 2 L by nasal cannula. She was admitted for treatment of COVID-19 pneumonia, started on remdesivir, Decadron. Initially required 2-3 L by nasal cannula. Today she was doing better, although was having still generalized body ache. She received Tylenol, although felt that did not help it. Her oxygenation, however, has improved, and she weaned off oxygen support. She was still having generalized weakness, initially was concerned about returning home, but later decided that she would feel better recovering at home. Since her oxygenation has improved we will arrange for discharge for her as she was not found to require oxygen on home oxygen evaluation. On presentation of note she was also found to have acute kidney injury, creatinine increased up to 2.1. Meloxicam, Voltaren gel, losartan were held, and she is asked to discontinue these medications at discharge. Creatinine has shown improvement down to 1.9 today, she has been producing urine. Please follow-up renal function. Avoid NSAIDs. Reassess if losartan will at some point be safe to restart. Physical Exam Const: COMMON NORMALS: patient oriented x3 and alert GENERAL APPEARANCE: cooperative ORIENTATION/CONSCIOUSNESS: Yes awake HENMT: COMMON NORMALS: oropharynx normal Neck/C-Spine: COMMON NORMALS: no JVD Resp: COMMON NORMALS: normal respiratory effort and clear to auscultation bilaterally AUSCULTATION: clear to auscultation bilaterally Cardio: COMMON NORMALS: no JVD, regular rhythm, S1 normal heart sound present, S2 normal heart sound present and No murmurs present (Cardio) RHYTHM: regular rhythm HEART SOUNDS: S1 normal heart sound present and S2 normal heart sound present GI: COMMON NORMALS: Normal to inspection, nondistended, normoactive bowel sounds present, Soft to palpation and non-tender PALPATION: Yes Soft to palpation Extremity: COMMON NORMALS: no joint enlargement and no pedal edema Neuro: COMMON NORMALS: patient oriented x3 and moves all extremities SENSORIUM/ORIENTATION: Yes alert Skin: COMMON NORMALS: no rashes or lesions noted GENERAL SKIN EXAM: no rashes or lesions noted Discharge Data Studies Completed and Pending Completed Studies During Hospitalization Category Date Time Status XR chest 1V portable [id number] Stat Exams 11/04/21 14:54 Completed CV. echo complete* [id number] Stat Ultrasound 11/04/21 18:04 Completed Radiology Impressions Chest X-Ray 11/04/21 14:54 IMPRESSION: No acute findings. Laboratory Results WBC 6.5 10^3/uL (4.0-10.0) 11/05/21 04:40 RBC 3.73 10^6/uL (4.1-5.3) L 11/05/21 04:40 Hgb 11.0 g/dL (11.5-15.3) L 11/05/21 04:40 Hct 35.0 % (37.0-47.0) L 11/05/21 04:40 MCV 93.8 fl (81-99) 11/05/21 04:40 MCH 29.5 pg (28.0-34.0) 11/05/21 04:40 MCHC 31.4 g/dL (30.0-36.0) 11/05/21 04:40 RDW 12.9 % (12.1-15.1) 11/05/21 04:40 Plt Count 280 10^3/cmm (130-400) 11/05/21 04:40 MPV 10.4 fL (7.4-10.4) 11/05/21 04:40 Neut % (Auto) 80.6 % 11/05/21 04:40 Lymph % (Auto) 17.0 % 11/05/21 04:40 [place] % (Auto) 1.1 % 11/05/21 04:40 Eos % (Auto) 0.0 % 11/05/21 04:40 Baso % (Auto) 0.2 % 11/05/21 04:40 Neut # (Auto) 5.21 10^3/uL (1.8-7.7) 11/05/21 04:40 Lymph # (Auto) 1.1 10^3/uL (0.8-4.8) 11/05/21 04:40 [place] # (Auto) 0.1 10^3/uL (0.2-0.9) L 11/05/21 04:40 Eos # (Auto) 0.0 10^3/uL (0.0-0.8) 11/05/21 04:40 Baso # (Auto) 0.0 10^3/uL (0.0-0.1) 11/05/21 04:40 Nucleated RBC % (auto) 0 % 11/05/21 04:40 Nucleated RBCs # 0.0 /100WBC 11/05/21 04:40 D-Dimer 0.48 ug/mIFEU (0-0.59) 11/05/21 04:40 Sodium 135 mmol/L (136-145) L 11/05/21 04:40 Potassium 5.2 mmol/L (3.5-5.1) H 11/05/21 04:40 Chloride 97 mmol/L (98-107) L 11/05/21 04:40 Carbon Dioxide 26 mmol/L (22-29) 11/05/21 04:40 Anion Gap 17.2 (5-19) 11/05/21 04:40 BUN 27 mg/dL (8-23) H 11/05/21 04:40 Creatinine 1.9 mg/dL (0.5-0.9) H 11/05/21 04:40 GFR Calculation Not Reportable 11/05/21 04:40 Glucose 288 mg/dL (65-115) H 11/05/21 04:40 POC Glucose 239 mg/dL (70-110) H 11/05/21 16:50 Calculated Osmolality 296 mOsm/kg (285-295) H 11/05/21 04:40 Calcium 8.7 mg/dL (8.5-10.5) 11/05/21 04:40 Total Bilirubin 0.3 mg/dL (0.15-1.2) 11/05/21 04:40 AST 13 U/L (0-32) 11/05/21 04:40 ALT 14 U/L (0-33) 11/05/21 04:40 Alkaline Phosphatase 56 U/L (35-105) 11/05/21 04:40 Troponin T Baseline 33 ng/L (0-10) H 11/04/21 15:10 Troponin T 120 Minute 35.37 ng/L (0-10) H 11/04/21 16:56 Delta Troponin T 2.37 ABS# (0-10) 11/04/21 16:56 C-Reactive Protein 27.2 mg/L (0.0-4.9) H 11/04/21 15:10 NT-Pro-B Natriuret Pep 1983 pg/mL (0-450) H 11/04/21 15:10 Total Protein 6.7 g/dL (6.6-8.7) 11/05/21 04:40 Albumin 3.8 g/dL (3.5-5.2) 11/05/21 04:40 Globulin 2.9 g/dL (1.3-4.6) 11/05/21 04:40 Procalcitonin 0.09 ng/mL (0-0.5) 11/04/21 15:10 Coronavirus 229E (PCR) Not detected (NOT DETECT) 11/04/21 16:05 SARS-CoV-2 (PCR) Detected (NOT DETECT) A 11/04/21 16:05 Vitals Last Vital Signs Temp 98.2 F 11/05/21 08:00 Pulse 102 H 11/05/21 17:17 Resp 16 11/05/21 17:17 BP 157/70 11/05/21 17:17 Pulse Ox 98 11/05/21 17:17 O2 Del Method 11/05/21 15:20 O2 Flow Rate 3 11/05/21 07:47 Discharge Plan Discharge Patient Disposition: Home Condition: Stable Prescriptions: New benzonatate 100 mg Capsule 100 mg PO TID PRN (Reason: Cough) Qty: 60 0RF Continued aripiprazole 20 mg tablet 20 mg PO DAILY@22 Qty: 90 3RF isosorbide mononitrate 30 mg tablet extended release 24 hr 30 mg PO DAILY@08 Qty: 90 3RF verapamil 120 mg tablet 120 mg PO DAILY@08 Qty: 90 3RF clopidogrel 75 mg tablet 75 mg PO DAILY@08 Qty: 90 3RF amlodipine 10 mg tablet 10 mg PO BID Qty: 180 3RF (DME) blood-glucose meter Kit See Rx Instructions .ROUTE .MEDSUPPLY Qty: 1 0RF Rx Instructions: As directed pantoprazole 40 mg tablet,delayed release (DR/EC) 40 mg PO BID@08,22 Qty: 60 3RF duloxetine 60 mg capsule,delayed release(DR/EC) 60 mg PO DAILY@08 Qty: 90 3RF atorvastatin 20 mg tablet 20 mg PO DAILY@22 Qty: 30 3RF Hold Instructions: Doctor's Order (DME) Comfort EZ Pen [place] 32 gauge x 5/16 needle See Rx Instructions .ROUTE .MEDSUPPLY Qty: 100 6RF Rx Instructions: inject two times daily (DME) FreeStyle [place] 14 Day Sensor Kit See Rx Instructions .Route Qty: 2 12RF Rx Instructions: As directed cholecalciferol (vitamin D3) 1,250 mcg (50,000 unit) capsule 50,000 unit PO Q30D Qty: 1 6RF tramadol 50 mg tablet 50 mg PO Q8H PRN (Reason: pain) Qty: 60 5RF Levemir FlexTouch U-100 Insuln 100 unit/mL (3 mL) insulin pen 30 unit SUBCUT BID Qty: 15 3RF Rx Instructions: replacement script gabapentin 300 mg capsule 300 mg PO BID Qty: 60 5RF levothyroxine 175 mcg tablet 175 mcg PO DAILY Qty: 90 3RF diphenhydramine HCl [Benadryl] 25 mg Capsule 25 mg PO DAILY PRN (Reason: Allergy Symptoms) fluticasone propionate 50 mcg/actuation spray,suspension 2 spray INTRANASAL DAILY PRN (Reason: Allergy Symptoms) Rx Instructions: administer into each nostril ondansetron 4 mg tablet,disintegrating 4 mg PO Q6H PRN (Reason: nausea and vomiting) Qty: 14 0RF dicyclomine 20 mg tablet 20 mg PO BID PRN (Reason: abdominal pain) Qty: 20 0RF trazodone 100 mg tablet 100 mg PO BEDTIME hydralazine 100 mg tablet 100 mg PO TID clonidine HCl 0.1 mg tablet 0.1 mg PO DAILY PRN (Reason: Blood Pressure) Discontinued meloxicam 15 mg tablet 15 mg PO DAILY@08 Qty: 90 3RF Paxlovid (EUA) 150-100 mg tablet See Rx Instructions .ROUTE .COMPLEX Qty: 20 0RF Rx Instructions: take ONE 150 mg tablet of nirmatrelvir with ONE 100 mg tablet of ritonavir twice daily for 5 days losartan 100 mg Tablet 100 mg PO DAILY diclofenac sodium 1 % Gel 2 g TOPICAL QID PRN (Reason: Pain) Rx Instructions: apply to single elbow, wrist or hand; for hand includes palm/fingers/back of hand Discharge Orders: Discharge Order (Routine); Ordered 11/05/21 Ordered By: Juve Vizcarra Referrals: Andrea Katz MD [Primary Care Provider] - 7-10 days (ALTHEA, covid Will call patient with appointment information) Patient Instructions: Acute Kidney Injury (GEN), COVID-19 (Coronavirus Disease 2019) (GEN), Opioid Safety Activity Restrictions/Additional Instructions: Please stop taking meloxicam, Voltaren gel. Please stop losartan for the time being as well due to acute kidney injury. This has been showing improvement, please have your primary doctor reassess your kidney function to make sure kidney injury is resolving. Please exercise caution with tramadol and gabapentin which may accumulate sometimes in cases of kidney injury. If you experience confusion, or if you experience low blood pressure which may suggest cannulation of other medications, please seek medical attention discussed with your primary doctor as to how to adjust your medications. If you start feeling unwell, experience low blood pressure which persists, below 90 top number or below 40 bottom number, please hold her medication and go to ER. Similarly please return to the hospital in case you experience worsening or jason re shortness of breath or any other concerning symptoms. Please isolate over the next 10 days. Discharge Attestations Time Spent in Discharge Care*: greater than 30 min Quality Metrics Clinical Quality Measures [ No reported AMI, CVA or VTE this stay] Coding Level of Care Code Acute [facility] FW DC note Diagnoses Hypoxemia R09.02 COVID-19 U07.1 Acute kidney injury superimposed on chronic kidney disease N17.9; N18.9
== END 2021-11-05 17:45 | disposition home or self-care (01) | DRG 177 ==
LOC: ER 16:56 → MEDSURG 19:30
PROVIDERS: Admitting Provider Internal Medicine; Emergency Provider Emergency Medicine; PCP Internal Medicine; Visit Provider Internal Medicine
DX: U07.1 COVID-19 (principal); J12.82 Pneumonia due to coronavirus disease 2019; N17.9 Acute kidney failure, unspecified; E11.22 Type 2 diabetes mellitus with diabetic chronic kidney disease; I12.9 Hypertensive chronic kidney disease with stage 1 through stage 4 chronic kidney disease, or unspecified chronic kidney disease; N18.2 Chronic kidney disease, stage 2 (mild); E86.0 Dehydration; I25.10 Atherosclerotic heart disease of native coronary artery without angina pectoris; E78.5 Hyperlipidemia, unspecified; E03.9 Hypothyroidism, unspecified; G47.33 Obstructive sleep apnea (adult) (pediatric); I35.1 Nonrheumatic aortic (valve) insufficiency; I34.0 Nonrheumatic mitral (valve) insufficiency; I07.1 Rheumatic tricuspid insufficiency; E11.40 Type 2 diabetes mellitus with diabetic neuropathy, unspecified; R60.0 Localized edema; Z87.891 Personal history of nicotine dependence; Z79.4 Long term (current) use of insulin; Z79.02 Long term (current) use of antithrombotics/antiplatelets
CPT/HCPCS: 36416; 71045; 80048; 80053; 82962; 83880; 84145; 84484; 85025; 85378; 86140; 87635; 93005; 93306; 94664; 96372; 96374; 99283; 99285; J1100; J1650; J1815

== ENCOUNTER 2021-11-17 12:45 | Inpatient (IN) | payer MEDICARE, BC, SELFPAY ==
[2021-11-17] VITALS (14 sets, daily range): BP systolic 127–155; BP diastolic 48–64; PULSE 43–85; RESP 16–24; TEMP 36–36.6; O2SAT 86–98; BMI 34.3
--- NOTE | 2021-11-17 13:27 | XR_ITS ---
WS: [id number] Exam: XR chest 1V portable [id number] Date/Time of Exam: 11/17/2021 1:30 PM Reason For Exam: sob Comparison 11/04/2021. The lungs are fully expanded. No acute infiltrate or pleural effusion.. Cardiomediastinal silhouette is unremarkable for portable technique. Bony structures are intact. Monitoring leads superimpose the chest. XR/XR chest 1V portable [id number] IMPRESSION: 1. No acute cardiopulmonary finding.
--- NOTE | 2021-11-17 13:28 | ED_ITS ---
HPI - SOB/Dyspnea General: Chief Complaint: Shortness of Breath/Dyspnea Stated Complaint: SOB Time Seen by Provider: 11/17/21 13:22 History of Present Illness: HPI Narrative: 81-year-old female presents due to shortness of breath. 2 weeks ago she was diagnosed with COVID and admitted to the hospital. Since discharge she is only required oxygen at night up until a week ago where she started requiring oxygen during the day and became progressively more short of breath. Denies pain. Denies chest pain specifically or lower extremity pain or swelling. Review of Systems Narrative: - CONSTITUTIONAL: Denies weight loss, fever and chills. - HEENT: Denies changes in vision and hearing. - RESPIRATORY: As above - CV: Denies palpitations and CP. - GI: Denies abdominal pain, nausea, vomiting and diarrhea. - : Denies dysuria and urinary frequency. - MSK: Denies myalgia and joint pain. - SKIN: Denies rash and pruritus. - NEUROLOGICAL: Denies headache, weakness, numbness and syncope. - PSYCHIATRIC: Denies suicidal ideation PFSH ED PFSH: Medical History Ascending aorta dilation Back pain, thoracic Benign essential HTN Bilateral primary osteoarthritis of knee Chronic depression Chronic pain CKD (chronic kidney disease), stage II Coronary artery disease Cyst of pancreas Essential tremor Generalized neuropathy H/O angiography Hyperlipidemia, unspecified Hypothyroidism, unspecified Iron deficiency Mild aortic regurgitation Mild mitral regurgitation Mild obstructive sleep apnea Mild tricuspid regurgitation Radiculopathy, cervical region Slow transit constipation Stress-induced cardiomyopathy Tremor, unspecified Type 2 diabetes mellitus without complications Vitamin D deficiency, unspecified Surgical History History of esophagogastroduodenoscopy (EGD) 12/03/2017- INTEALUMINAL GASTRIC BLOOD- GASTRITIS WITH BLEEDING S/P colonoscopy 12/03/2017- POLYPS REMOVED- REPEAT IN 5 YEARS Status post hip surgery Family History Other Diabetes Heart disease Social History Smoking and tobacco status: former smoker Alcohol intake: never History of recent travel: No Physical Exam Narrative: EXAM NARRATIVE: - GENERAL: Alert and oriented x 3. No acute distress. Well-nourished. - EYES: EOMI. Anicteric. - HENT: Atraumatic, no C-spine tenderness. Moist mucous membranes. No scleral icterus. No cervical lymphadenopathy. - LUNGS: Bilateral wheezing - CARDIOVASCULAR: Regular rate and rhythm. No murmur. No JVD. - ABDOMEN: Soft, non-tender and non-distended. Negative CVA tenderness bilaterally, no rebound or guarding, negative Glez sign. No palpable masses. - EXTREMITIES: No edema. Non-tender. - SKIN: No rashes or lesions. Warm. - NEUROLOGIC: No meningismus or focal neurological deficits. CN II-XII grossly intact. - PSYCHIATRIC: Cooperative. Appropriate mood and affect. Course Vital Signs: Vital signs: Vital Signs Temperature 96.8 F L 11/17/21 13:09 Pulse Rate 46 L 11/17/21 14:29 Respiratory Rate 16 11/17/21 14:24 Blood Pressure 129/55 11/17/21 13:09 Pulse Oximetry 95 11/17/21 14:24 Oxygen Delivery Me thod 11/17/21 14:24 Oxygen Flow Rate 5 11/17/21 14:24 MDM - SOB/Dyspnea Medical Decision Making 81-year-old presents due to continued shortness of breath. She was recently admitted for COVID but was weaned off of oxygen except at night. For the past week she has had increasing oxygen requirement and here she is requiring up to 5 L by nasal cannula. X-ray does not reveal any signs of volume overload. D- dimer is elevated but patient has ALTHEA so unable to obtain CTA of the chest. Will admit and obtain VQ scan. EKG does not reveal any acute ischemic change or hyperkalemic change but potassium is mildly elevated at 5.5. Calcium gluconate provided. BNP level is elevated to 9000 but there is no sign of volume overload. We will hold off on diuresis at this time. In addition patient does have elevated troponin to 50 however she denies have any chest pain. EKG does not reveal any acute ischemic change. Aspirin provided. We will continue to trend troponin however it is possible troponin elevation is secondary to reduced clearance. Remainder of lab work and imaging reviewed. Discussed with hospitalist and they agreed patient would benefit from admission. Patient admitted in stable condition. Further evaluation management per hospitalist team. Lab Data : 11/17/21 13:45 11/17/21 13:45 Labs/Radiology: Radiology Impressions Chest X-Ray 11/17/21 13:27 IMPRESSION: 1. No acute cardiopulmonary finding. Laboratory Results WBC 14.3 10^3/uL (4.0-10.0) H 11/17/21 13:45 RBC 3.18 10^6/uL (4.1-5.3) L 11/17/21 13:45 Hgb 9.6 g/dL (11.5-15.3) L 11/17/21 13:45 Hct 30.5 % (37.0-47.0) L 11/17/21 13:45 MCV 95.9 fl (81-99) 11/17/21 13:45 MCH 30.2 pg (28.0-34.0) 11/17/21 13:45 MCHC 31.5 g/dL (30.0-36.0) 11/17/21 13:45 RDW 14.4 % (12.1-15.1) 11/17/21 13:45 Plt Count 317 10^3/cmm (130-400) 11/17/21 13:45 MPV 10.6 fL (7.4-10.4) H 11/17/21 13:45 Neut % (Auto) 85.4 % 11/17/21 13:45 Lymph % (Auto) 7.2 % 11/17/21 13:45 [place] % (Auto) 6.2 % 11/17/21 13:45 Eos % (Auto) 0.1 % 11/17/21 13:45 Baso % (Auto) 0.1 % 11/17/21 13:45 Neut # (Auto) 12.25 10^3/uL (1.8-7.7) H 11/17/21 13:45 Lymph # (Auto) 1.0 10^3/uL (0.8-4.8) 11/17/21 13:45 [place] # (Auto) 0.9 10^3/uL (0.2-0.9) 11/17/21 13:45 Eos # (Auto) 0.0 10^3/uL (0.0-0.8) 11/17/21 13:45 Baso # (Auto) 0.0 10^3/uL (0.0-0.1) 11/17/21 13:45 Nucleated RBC % (auto) 0 % 11/17/21 13:45 Nucleated RBCs # 0.0 /100WBC 11/17/21 13:45 D-Dimer 0.69 ug/mIFEU (0-0.59) H 11/17/21 13:45 Sodium 136 mmol/L (136-145) 11/17/21 13:45 Potassium 5.5 mmol/L (3.5-5.1) H 11/17/21 13:45 Chloride 99 mmol/L (98-107) 11/17/21 13:45 Carbon Dioxide 21 mmol/L (22-29) L 11/17/21 13:45 Anion Gap 21.5 (5-19) H 11/17/21 13:45 BUN 68 mg/dL (8-23) H 11/17/21 13:45 Creatinine 2.8 mg/dL (0.5-0.9) H 11/17/21 13:45 GFR Calculation Not Reportable 11/17/21 13:45 Glucose 178 mg/dL (65-115) H 11/17/21 13:45 Calculated Osmolality 306 mOsm/kg (285-295) H 11/17/21 13:45 Calcium 9.0 mg/dL (8.5-10.5) 11/17/21 13:45 Total Bilirubin 0.5 mg/dL (0.15-1.2) 11/17/21 13:45 AST 54 U/L (0-32) H 11/17/21 13:45 ALT 102 U/L (0-33) H 11/17/21 13:45 Alkaline Phosphatase 78 U/L (35-105) 11/17/21 13:45 Troponin T Baseline 51 ng/L (0-10) H 11/17/21 13:45 NT-Pro-B Natriuret Pep 9523 pg/mL (0-450) H 11/17/21 13:45 Total Protein 6.7 g/dL (6.6-8.7) 11/17/21 13:45 Albumin 3.8 g/dL (3.5-5.2) 11/17/21 13:45 Globulin 2.9 g/dL (1.3-4.6) 11/17/21 13:45 SARS-CoV-2 Ag (Rapid) Negative (Negative) 11/17/21 13:45 EKG Data EKG 1: Other EKG Comments: Sinus bradycardia, rate of 49, right bundle branch block, no sign of acute ischemia or other acute abnormality. Discharge Plan Discharge Condition: Stable Prescriptions: No Action aripiprazole 20 mg tablet 20 mg PO DAILY@22 Qty: 90 3RF isosorbide mononitrate 30 mg tablet extended release 24 hr 30 mg PO DAILY@08 Qty: 90 3RF verapamil 120 mg tablet 120 mg PO DAILY@08 Qty: 90 3RF clopidogrel 75 mg tablet 75 mg PO DAILY@08 Qty: 90 3RF amlodipine 10 mg tablet 10 mg PO BID Qty: 180 3RF (DME) blood-glucose meter Kit See Rx Instructions .ROUTE .MEDSUPPLY Qty: 1 0RF Rx Instructions: As directed duloxetine 60 mg capsule,delayed release(DR/EC) 60 mg PO DAILY@08 Qty: 90 3RF atorvastatin 20 mg tablet 20 mg PO DAILY@22 Qty: 30 3RF Hold Instructions: Doctor's Order (DME) Comfort EZ Pen [place] 32 gauge x 5/16 needle See Rx Instructions .ROUTE .MEDSUPPLY Qty: 100 6RF Rx Instructions: inject two times daily (DME) FreeStyle [place] 14 Day Sensor Kit See Rx Instructions .Route Qty: 2 12RF Rx Instructions: As directed cholecalciferol (vitamin D3) 1,250 mcg (50,000 unit) capsule 50,000 unit PO Q30D Qty: 1 6RF tramadol 50 mg tablet 50 mg PO Q8H PRN (Reason: pain) Qty: 60 5RF Levemir FlexTouch U-100 Insuln 100 unit/mL (3 mL) insulin pen 30 unit SUBCUT BID Qty: 15 3RF Rx Instructions: replacement script gabapentin 300 mg capsule 300 mg PO BID Qty: 60 5RF pantoprazole 40 mg tablet,delayed release (DR/EC) 40 mg PO BID@, Qty: 60 3RF azithromycin 250 mg tablet See Rx Instructions PO .COMPLEX Qty: 6 0RF Rx Instructions: For 250 mg dose pack: take 500 mg today (day 1), then 250 mg for 4 days (days 2-5) PO diphenhydramine HCl [Benadryl] 25 mg Capsule 25 mg PO DAILY PRN (Reason: Allergy Symptoms) dicyclomine 20 mg tablet 20 mg PO BID PRN (Reason: abdominal pain) Qty: 20 0RF trazodone 100 mg tablet 100 mg PO BEDTIME hydralazine 100 mg tablet 100 mg PO TID clonidine HCl 0.1 mg tablet 0.1 mg PO DAILY PRN (Reason: Blood Pressure) benzonatate 100 mg Capsule 100 mg PO TID PRN (Reason: Cough) Qty: 60 0RF levothyroxine 175 mcg tablet 175 mcg PO QAM prednisone 10 mg tablet See Rx Instructions .ROUTE .COMPLEX Rx Instructions: 4 tabs po daily for 3 days 3 tabs po daily for 3 days 2 tabs po daily for 3 days 1 tabs po daily for 3 days Referrals: Andrea Katz MD [Primary Care Provider] - Coding Level of Care Code ED Lead Atg Developer for Kenneth Yang
--- NOTE | 2021-11-17 13:28 | ECG_ITS ---
[facility] Test Date: 2021-11-17 Pat Name: Savannah Wu Department: Room: Gender: Female Annual Campaign Manager: : 1940 Requested By: Krzysztof Chang Order Number: [id number] Rohini MD: Alessandro Burrows M.D. Measurements Intervals [place] Rate: 49 P: DE: QRS: -29 QRSD: 121 T: 62 QT: 474 QTc: 428 Interpretive Statements UNCERTAIN REGULAR RHYTHM, probable junctional RIGHT BUNDLE BRANCH BLOCK [120+ ms QRS DURATION, UPRIGHT V1, 40+ ms S IN I/aVL/V4/V5/V6] SEPTAL MYOCARDIAL INFARCTION , OF INDETERMINATE AGE [40+ ms Q WAVE IN V1/V2] INTERPRETATION BASED ON A DEFAULT AGE OF 40 YEARS Compared to ECG 11/04/2021 17:17:53 Supraventricular rhythm no longer present Left anterior fascicular block no longer present Myocardial infarct finding still present Electronically Signed On 11-17-2021 14:01:36 CDT by Alessandro Burrows M.D. [email or web address] [facility] hospitalShen[facility] Shang[employer] Technologycleveland clinic [facility]/store/NU/[id number] [email or web address]
[2021-11-17 14:09] LABS: Basophils % 0.1 %; Eosinophils % 0.1 %; Hematocrit 30.5 % (37.0-47.0); Hemoglobin 9.6 g/dL (11.5-15.3); Lymphocytes % 7.2 %; Mean Corpuscular HGB Conc 31.5 g/dL (30.0-36.0); Mean Corpuscular Hemoglobin 30.2 pg (28.0-34.0); Mean Corpuscular Volume 95.9 fl (81-99); Mean Platelet Volume 10.6 fL (7.4-10.4); Monocytes # 0.9 10^3/uL (0.2-0.9); Monocytes % 6.2 %; Neutrophils # 12.25 10^3/uL (1.8-7.7); Neutrophils % 85.4 %; Nucleated Red Blood Cells % 0 %; Platelet Count 317 10^3/cmm (130-400); Red Blood Count 3.18 10^6/uL (4.1-5.3); Red Cell Distribution Width 14.4 % (12.1-15.1); White Blood Count 14.3 10^3/uL (4.0-10.0)
[2021-11-17 14:23] LABS: D Dimer 0.69 ug/mIFEU (0-0.59)
[2021-11-17] MEDS: ipratropium-albuterol 3 mL Neb INHALATION ×2 (14:26→20:05)
[2021-11-17 14:32] LABS: Troponin(5th) Baseline 51 ng/L (0-10)
[2021-11-17 14:36] LABS: Alanine Aminotransferase 102 U/L (0-33); Albumin Level 3.8 g/dL (3.5-5.2); Alkaline Phosphatase 78 U/L (35-105); Blood Urea Nitrogen 68 mg/dL (8-23); Carbon Dioxide 21 mmol/L (22-29); Chloride 99 mmol/L (98-107); Globulin 2.9 g/dL (1.3-4.6); Glucose 178 mg/dL (65-115); NT Pro B Type Natriuretic Pept 9523 pg/mL (0-450); Osmolality Calculated 306 mOsm/kg (285-295); Sodium 136 mmol/L (136-145); Total Bilirubin 0.5 mg/dL (0.15-1.2); Total Protein 6.7 g/dL (6.6-8.7)
[2021-11-17 14:39] LABS: Anion Gap 21.5 (5-19); Aspartate Amino Transferase 54 U/L (0-32); Potassium 5.5 mmol/L (3.5-5.1)
[2021-11-17 14:44] LABS: SARS Covid-2 Antigen Negative (Negative)
[2021-11-17] MEDS: calcium gluconate 0.9% NaCL 1 GM/50 ML PREMIX IV (16:16)
[2021-11-17] MEDS: aspirin 81 mg Chew Tablet 324 MG PO (16:17)
--- NOTE | 2021-11-17 17:17 | PM.HP ---
Providers/Chief Complaint Primary Care Provider: Andrea Katz MD Chief Complaint: SOB History of Present Illness Savannah Wu is a 81 year old female with past medical history of hypertension, hyperlipidemia he is to follow-up with Dr. Meadows as an outpatient, ascending aortic dilatation, CKD stage II, history of CAD, obstructive sleep apnea, type 2 diabetes mellitus with last angiogram in 2017 which showed nonobstructive CAD with recent diagnosis of COVID-19 when she was discharged on 11/05 on a steroid pack and Z-Mitchell. Seen during that hospitalization she received remdesivir for 2 days presented back to the ER today because of worsening shortness of breath which started today morning after she had chest heaviness and chest pressure which was retrosternal while she was sitting in bed. Patient was sent home few days ago on 2 L of oxygen supplementation which is new for her. When presented to the ER she was saturating in low 80s on 2 L hence hospital service was contacted for further evaluation and management. Review of Systems General: Reports: 10 or more systems reviewed and unremarkable except in HPI and below Const: Denies: fever(s), chills or body aches Eyes: Denies: change in vision, blurry vision or photophobia ENMT: Reports: hoarseness; Denies: throat pain, enlarged tonsils, odynophagia or nasal congestion Card: Denies: chest pain, palpitations, irregular heart rhythm, edema, swelling of feet/ankles, lightheadedness, pre-syncope, dyspnea on exertion or orthopnea Resp: Denies: dyspnea, productive cough, non-productive cough, wheezing, stridor, pain on inspiration, change in phlegm color, hemoptysis or chest congestion GI: Denies: abdominal pain, nausea, vomiting, hematemesis, coffee ground emesis, dysphagia, heartburn, diarrhea, constipation, GI cramping, change in stool character, hematochezia or melena : Denies: flank pain, difficulty voiding, dysuria, urinary frequency, urinary urgency, urinary hesitancy or hematuria Musc: Denies: neck pain, back pain, extremity pain, joint swelling, joint warmth or deformity Neuro: Denies: headache(s), numbness in extremities, weakness in extremities, sensory changes, difficulty walking, frequent falls, dizziness, vertigo, behavioral changes, Slurred speech present or seizure-like activity Psych: Denies: anxiety, depression, suicidal ideation or homicidal ideation Endo: Denies: polyuria, polydipsia, tired all the time, cold intolerance or hot flashes Marcio/Lymph: Denies: easy bruising or easy bleeding Medications/Allergies Home Medications Medication Instructions Recorded Confirmed Last Taken Type blood-glucose meter #1 ea 03/20/20 11/17/21 Unknown Rx dicyclomine 20 mg tablet 20 mg PO BID PRN abdominal pain 04/18/20 11/17/21 Unknown Rx #20 tabs diphenhydramine HCl 25 mg capsule 25 mg PO DAILY PRN Allergy Symptoms 04/18/20 11/17/21 04/18/20 History (Benadryl) duloxetine 60 mg capsule,delayed 60 mg PO DAILY@08 #90 caps 12/20/20 11/17/21 11/17/21 Rx release aripiprazole 20 mg tablet 20 mg PO DAILY@22 #90 tabs 12/25/20 11/17/21 11/16/21 Rx atorvastatin 20 mg tablet 20 mg PO DAILY@22 #30 tabs 02/17/21 11/17/21 11/16/21 Rx amlodipine 10 mg tablet 10 mg PO BID #180 tabs 04/09/21 11/17/21 11/04/21 Rx clopidogrel 75 mg tablet 75 mg PO DAILY@08 #90 tabs 04/09/21 11/17/21 11/17/21 Rx isosorbide mononitrate 30 mg 30 mg PO DAILY@08 #90 tabs 04/09/21 11/17/21 11/17/21 09:30 Rx tablet,extended release 24 hr verapamil 120 mg tablet 120 mg PO DAILY@08 #90 tabs 04/09/21 11/17/21 11/16/21 Rx flash glucose sensor (FreeStyle #2 ea 08/04/21 11/17/21 Unknown Rx Nagi 14 Day Sensor) pen needle, diabetic 32 gauge x #100 ea 08/04/21 11/17/21 Unknown Rx 08/04 (Comfort EZ Pen Auxier) cholecalciferol (vitamin D3) 1,250 50,000 unit PO Q30D #1 cap 08/19/21 11/17/21 Unknown Rx mcg (50,000 unit) capsule tramadol 50 mg tablet 50 mg PO Q8H PRN pain #60 tabs 08/28/21 11/17/21 11/17/21 09:30 Rx insulin detemir U-100 100 unit/mL 30 unit (0.3 mL) SUBCUT BID #15 mL 09/15/21 11/17/21 11/17/21 Rx (3 mL) subcutaneous pen (Levemir FlexTouch U-100 Insulin) gabapentin 300 mg capsule 300 mg PO BID #60 caps 09/23/21 11/17/21 11/17/21 09:30 Rx clonidine HCl 0.1 mg tablet 0.1 mg PO DAILY PRN Blood Pressure 11/04/21 11/17/21 Unknown History hydralazine 100 mg tablet 100 mg PO TID 11/04/21 11/17/21 11/17/21 09:30 History trazodone 100 mg tablet 100 mg PO BEDTIME 11/04/21 11/17/21 11/16/21 History benzonatate 100 mg capsule 100 mg PO TID PRN Cough #60 caps 11/05/21 11/17/21 Unknown Rx azithromycin 250 mg tablet See Rx Instructions PO .COMPLEX #6 11/10/21 11/17/21 11/16/21 Rx tabs finished 11/16/21 pantoprazole 40 mg tablet,delayed 40 mg PO BID@ #60 tabs 11/10/21 11/17/21 11/17/21 Rx release levothyroxine 175 mcg tablet 175 mcg PO QAM 11/17/21 11/17/21 11/17/21 History prednisone 10 mg tablet See Rx Instructions .Route .COMPLEX 11/17/21 11/17/21 Unknown History Allergies Allergy/AdvReac Type Severity Reaction Status Date / Time acebutolol Allergy Unknown Verified 11/17/21 12:15 atenolol Allergy Unknown Verified 11/17/21 12:15 betaxolol Allergy Unknown Verified 11/17/21 12:15 bisoprolol Allergy Unknown Verified 11/17/21 12:15 carvedilol Allergy Unknown Verified 11/17/21 12:15 Cephalosporins Allergy Unknown Verified 11/17/21 12:15 esmolol Allergy Unknown Verified 11/17/21 12:15 iodine Allergy Unknown Verified 11/17/21 12:15 labetalol Allergy Unknown Verified 11/17/21 12:15 levobunolol Allergy Unknown Verified 11/17/21 12:15 metipranolol Allergy Unknown Verified 11/17/21 12:15 metoprolol Allergy Unknown Verified 11/17/21 12:15 nadolol Allergy Unknown Verified 11/17/21 12:15 Penicillins Allergy Unknown Verified 11/17/21 12:15 pindolol Allergy Unknown Verified 11/17/21 12:15 pneumococcal vaccine Allergy Unknown Verified 11/17/21 12:15 [From Pneumovax 23] propoxyphene Allergy Unknown Verified 11/17/21 12:15 propranolol Allergy Unknown Verified 11/17/21 12:15 sotalol Allergy Unknown Verified 11/17/21 12:15 Sulfa (Sulfonamide Allergy Unknown Verified 11/17/21 12:15 Antibiotics) tetracycline Allergy Unknown Verified 11/17/21 12:15 timolol Allergy Unknown Verified 11/17/21 12:15 chlorpheniramine AdvReac Mild Feels Verified 11/17/21 12:15 [From Aller-Chlor jittery Decongestant] pseudoephedrine AdvReac Mild Feels Verified 11/17/21 12:15 [From Aller-Chlor jittery Decongestant] beta grant Allergy Unknown Uncoded 11/17/21 12:15 PFSH Acute PFSH: Medical History Ascending aorta dilation Back pain, thoracic Benign essential HTN Bilateral primary osteoarthritis of knee Chronic depression Chronic pain CKD (chronic kidney disease), stage II Coronary artery disease Cyst of pancreas Essential tremor Generalized neuropathy H/O angiography Hyperlipidemia, unspecified Hypothyroidism, unspecified Iron deficiency Mild aortic regurgitation Mild mitral regurgitation Mild obstructive sleep apnea Mild tricuspid regurgitation Radiculopathy, cervical region Slow transit constipation Stress-induced cardiomyopathy Tremor, unspecified Type 2 diabetes mellitus without complications Vitamin D deficiency, unspecified Surgical History History of esophagogastroduodenoscopy (EGD) 12/03/2017- INTEALUMINAL GASTRIC BLOOD- GASTRITIS WITH BLEEDING S/P colonoscopy 12/03/2017- POLYPS REMOVED- REPEAT IN 5 YEARS Status post hip surgery Family History Other Diabetes Heart disease Social History Smoking and tobacco status: former smoker Alcohol intake: never History of recent travel: No Vitals/I&O/Wt Last Vital Signs Temp 96.8 F L 11/17/21 13:09 Pulse 54 L 11/17/21 16:30 Resp 19 H 11/17/21 16:30 BP 141/54 11/17/21 16:30 Pulse Ox 95 11/17/21 16:30 O2 Del Method 11/17/21 16:30 O2 Flow Rate 4 11/17/21 16:30 Weight last 48 hrs Weight 90.718 kg Physical Exam Narrative: General: No acute distress, AO x3 HEENT: PERRLA, pupils bilaterally equal and reactive, pallors not present Chest: Bilateral bronchial breath sounds, occasional rhonchi all over the lung ross, fine crackles present at bases CVS: S1-S2 regular, no murmurs, no tachycardia, no gallops, no rubs Abdomen: Soft, nontender, no organomegaly, bowel sounds present Neuro: No focal deficits, no facial deformity, AO x3, power 5/5 in all limbs Data : 11/17/21 13:45 11/17/21 13:45 A&P Assessment and plan (1) Hypoxia: Status: Acute (2) COVID-19: Status: Acute (3) Acute kidney injury superimposed on CKD: Baseline creatinine seems to be 1.5-1.8. Currently 2.8. Medical reconciliation done for nephrotoxic drugs. Cannot rule out secondary to CRS. Continue to monitor daily for now. Status: Acute (4) Atypical chest pain: Most likely atypical chest pain. Cannot rule out chest pain secondary thromboembolism. Cycle troponins. Most recent cardiac angiogram in 2017 appreciated. Heparin drip as for possible VTE. Check A1c, lipid panel. Continue home dose of statin and Plavix. Status: Acute (5) Hypothyroidism (acquired): Continue home dose of levothyroxine Status: Chronic (6) Benign essential HTN: Goal blood pressure less than 140/90 mmHg. Continue with home dose of amlodipine, clonidine as needed, hydralazine 100 mg 3 times a day, Imdur 30 mg daily. Patient having slight bradycardia in the ER. We will hold off on verapamil for now. We will add back if heart rate improves her blood pressure elevated. Status: Acute (7) Hyperlipidemia, unspecified: Status: Acute (8) Type 2 diabetes mellitus without complications: Check A1c. Insulin sliding scale at low-dose protocol. Carb consistent diet. Status: Acute Plan 81-year-old female with recent diagnosis of COVID-19 who was sent home few days ago on oral antibiotic and steroid pack 2 L of oxygen supplementation presented to the ER because of chest pressure and worsening oxygen requirements. Hypoxia secondary to COVID-19 pneumonia: Mild to moderate disease. Oxygen supplementation keeping saturation over 88%. Dexamethasone 6 mg daily to finish a 10-day course. Received 2 days of remdesivir on previous admission. For now we will hold off on remdesivir as patient has been positive for COVID-19 for quite some time now. Vitamin C, zinc. DuoNeb every 6 hour, budesonide twice daily Pulmonary toilet with incentive spirometry flutter valve. We will monitor inflammatory markers including CRP, D-dimer every 48 hours. D-dimer elevated. Cannot rule out pulmonary embolism. Cannot do CTA given CKD. Will do lower limb Dopplers, VQ scan. For now we will start on heparin drip while VQ scan can be done. If VQ scan shows low probability we will stop heparin drip. Check sputum culture, procalcitonin, urine Legionella, bacterial antigen, blood culture. Low suspicion of bacterial pneumonia. For now we will start on IV ceftriaxone and oral azithromycin while cultures are pending. Will de-escalate accordingly. Given hypoxia will try to keep patient as negative as possible. Recent echocardiogram done in recent hospitalization appreciated. Plan to keep patient net negative. IV Lasix 80 mg once. Will dose further Lasix as per fluid status. Strict input output charting, daily weights. Continue other chronic medication. Full code. Heparin drip Protonix for PUD prophylaxis Carb consistent diet. Attestations Medical Necessity Statement*: Admission for more than 2 midnights for management of hypoxia in setting of COVID-19 while further work-up was done to rule out pulmonary embolism, superadded bacterial infection, ALTHEA and CKD Time Spent in Patient Care: Greater than 35 minutes Coding Level of Care Code Acute [facility] Diagnoses Hypoxia R09.02 COVID-19 U07.1 Acute kidney injury superimposed on CKD N17.9; N18.9 Atypical chest pain R07.89 Hypothyroidism (acquired) E03.9 Benign essential HTN I10 Hyperlipidemia, unspecified E78.5 Type 2 diabetes mellitus without complications E11.9
--- NOTE | 2021-11-17 17:23 | USR_ITS ---
PROCEDURE INFORMATION: Exam: US Duplex Lower Extremity Veins, Bilateral Exam date and time: 11/17/2021 5:37 PM Age: 81 years old Clinical indication: Abnormal findings; Abnormal lab test; Elevated d-dimer; Additional info: Elevated dimer TECHNIQUE: Imaging protocol: Real-time Duplex ultrasound of the bilateral extremities with 2-D juarez scale, color Doppler flow and spectral waveform analysis with image documentation. Complete exam focused on the bilateral lower extremity veins. COMPARISON: CT abdomen pelvis w con* [id number] 04/18/2020 5:39 PM FINDINGS: Right deep veins: Unremarkable. The common femoral, femoral, proximal profunda femoral and popliteal veins are patent without thrombus. Normal Doppler waveforms. Normal compressibility and/or augmentation response. Right superficial veins: Saphenofemoral junction is patent without thrombus. Left deep veins: Unremarkable. The common femoral, femoral, proximal profunda femoral and popliteal veins are patent without thrombus. Normal Doppler waveforms. Normal compressibility and/or augmentation response. Left superficial veins: Saphenofemoral junction is patent without thrombus. Soft tissues: Unremarkable. US/CV venous duplex [facility] [id number] IMPRESSION: No evidence of deep vein thrombosis.
--- NOTE | 2021-11-17 17:25 | CTR_ITS ---
PROCEDURE INFORMATION: Exam: CT Chest Without Contrast; Diagnostic Exam date and time: 11/17/2021 6:08 PM Age: 81 years old Clinical indication: Cough and dyspnea; Additional info: Covid, SOB TECHNIQUE: Imaging protocol: Diagnostic computed tomography of the chest without contrast. Radiation optimization: All CT scans at this facility use at least one of these dose optimization techniques: automated exposure control; mA and/or kV adjustment per patient size (includes targeted exams where dose is matched to clinical indication); or iterative reconstruction. COMPARISON: CT angio chest [id number] 12/24/2017 12:28 PM RADIATION DOSE METRICS: Total DLP (mGy-cm): 472.35 FINDINGS: Lungs: There are multiple calcified granulomas in the left lung. There is relaxation atelectasis in dependent portion of both lower lobes. There is some nonspecific ground-glass opacity in both lungs but more on the left than on the right. Ground-glass opacities are mainly in a peribronchial and central distribution. Pleural spaces: There are small bilateral pleural effusions. Heart: The heart is mildly enlarged. There is moderate atherosclerotic calcification of the coronary arteries. Lymph nodes: Unremarkable. No enlarged lymph nodes. Vasculature: Unremarkable. No aortic aneurysm. Bones/joints: Unremarkable. No acute fracture. Soft tissues: Unremarkable. CT/CT chest wo con [id number] IMPRESSION: 1. Imaging features can be seen with COVID-19 pneumonia, though are nonspecific and can occur with a variety of infectious and noninfectious processes. (Reference: Vamshi) 2. Bilateral pleural effusions. 3. Bilateral lower lobe atelectasis. 4. Old granulomatous disease. REFERENCES: miguel a Sherman al., [employer] Society of [place] Expert Consensus Statement on Reporting Chest CT Findings Related to COVID-19. Endorsed by the Society of Thoracic Radiology, the [place] [employer], and RSNA. Published June 14, 2019.
[2021-11-17 17:42] LABS: Erythrocyte Sedimentation Rate 35 mm/hr (0-15)
[2021-11-17 18:03] LABS: C Reactive Protein 8.8 mg/L (0.0-4.9); Ferritin 261 ng/mL (15-150)
[2021-11-17 18:08] LABS: Procalcitonin 0.17 ng/mL (0-0.5)
[2021-11-17] MEDS: FUROsemide 10 mg/mL SDV 10mL 80 MG IVP (18:35)
[2021-11-17 19:11] LABS: Partial Thromboplastin Time 26.2 SECONDS (23.9-36.7)
[2021-11-17] MEDS: heparin drip 25,000 UNIT/500 ML PREMIX 2 UNIT IV (19:31)
--- NOTE | 2021-11-17 19:32 | PC.NURSE ---
Verified heparin dose and pump settings with Horace Pablo RN prior to start.
[2021-11-17] MEDS: budesonide 0.5 mg/2 mL Neb INHALATION (20:05)
[2021-11-17] MEDS: hyDRALAzine 50 mg Tablet 100 MG PO (21:24)
[2021-11-17] MEDS: ARIPiprazole 10 mg Tablet 20 MG PO (21:24)
[2021-11-17] MEDS: amlodipine 10 mg Tablet PO (21:25)
[2021-11-17] MEDS: atorvastatin 40 mg Tablet 20 MG PO (21:25)
[2021-11-17] MEDS: gabapentin 300 mg Capsule PO (21:25)
[2021-11-17] MEDS: trazodone 100 mg Tablet PO (21:26)
[2021-11-17] MEDS: pantoprazole DR 40 mg Tablet PO (21:26)
[2021-11-17] MEDS: cefTRIAXone 1,000 MG in sodium chloride 0.9% (plus) 50 ML 100 MG IV (22:18)
--- NOTE | 2021-11-17 22:55 | US_ITS ---
WS: [id number] RENAL ULTRASOUND HISTORY: [email or web address] on ckd COMPARISON: None available. TECHNIQUE: 2-D and color Doppler imaging of the kidney submitted. Right kidney: 10.8 cm x 5.6 cm x 5.6 cm. Normal echogenicity with no hydronephrosis or mass. Left kidney: 10.0 cm x 4.7 cm x 4.5 cm. Normal echogenicity with no hydronephrosis or mass. Aorta: Not visualized. Urinary Bladder: Minimally distended bladder. No ureteral jets are evident at this time. US/US renal BI* [id number] IMPRESSION: 1. Normal size kidneys. 2. No hydronephrosis.
[2021-11-17 23:15] LABS: Estmated Average Glucose 186; Hemoglobin A1C 8.1 % (4.0-6.0)
[2021-11-17 23:46] LABS: Add Urine Microscopic? NO; Charge for UA Resulting for Rev
[2021-11-17 23:49] LABS: Bilirubin Urine Neg (Negative); Blood Urine Neg (Negative); Glucose Urine UA Norm (Normal); Ketones Urine Negative (Negative); Leukocyte Esterase Urine Negative (Negative); Nitrate Urine Negative (Negative); Protein Urine Neg (Negative); Urine Appearance Clear (CLEAR); Urine Color Yellow (Yellow); Urobilinogen Urine Norm (Negative); pH Urine 5 (5-7)
[2021-11-18] VITALS (14 sets, daily range): BP systolic 100–171; BP diastolic 55–76; PULSE 70–92; RESP 12–20; TEMP 36.7–36.9; O2SAT 90–94
[2021-11-18 00:01] LABS: Potassium, Radom Urine 33 mmol/L; Urine Creatinine 22 mg/dL (28-217); Urine Random Chloride 110 mmol/L; Urine Random Sodium 83 mmol/L
[2021-11-18 02:12] LABS: Basophils % 0.1 %; Hematocrit 25.5 % (37.0-47.0); Lymphocytes # 0.5 10^3/uL (0.8-4.8); Lymphocytes % 5.9 %; Mean Corpuscular HGB Conc 31.4 g/dL (30.0-36.0); Mean Corpuscular Hemoglobin 29.7 pg (28.0-34.0); Mean Corpuscular Volume 94.8 fl (81-99); Mean Platelet Volume 10.7 fL (7.4-10.4); Monocytes # 0.1 10^3/uL (0.2-0.9); Monocytes % 0.6 %; Neutrophils # 7.28 10^3/uL (1.8-7.7); Neutrophils % 92.1 %; Nucleated Red Blood Cells % 0 %; Platelet Count 249 10^3/cmm (130-400); Red Blood Count 2.69 10^6/uL (4.1-5.3); Red Cell Distribution Width 14.6 % (12.1-15.1); White Blood Count 7.9 10^3/uL (4.0-10.0)
[2021-11-18] MEDS: ipratropium-albuterol 3 mL Neb INHALATION ×4 (02:13→21:13)
[2021-11-18 02:26] LABS: Partial Thromboplastin Time 23.8 SECONDS (23.9-36.7)
[2021-11-18 02:35] LABS: Alanine Aminotransferase 81 U/L (0-33); Albumin Level 3.5 g/dL (3.5-5.2); Alkaline Phosphatase 67 U/L (35-105); Anion Gap 15.7 (5-19); Aspartate Amino Transferase 29 U/L (0-32); Blood Urea Nitrogen 73 mg/dL (8-23); Calcium 8.6 mg/dL (8.5-10.5); Carbon Dioxide 25 mmol/L (22-29); Chloride 100 mmol/L (98-107); Chol HDL Ratio 2.72 mg/dL (0.0-4.40); Cholesterol 188 mg/dL (0-200); Globulin 2.3 g/dL (1.3-4.6); Glucose 304 mg/dL (65-115); HDL Cholesterol 69 mg/dL (60-100); LDL Cholesterol Calculated 104 mg/dL (50-129); LDL HDL Ratio 1.51 RATIO (0.00-3.22); Magnesium 2.5 mg/dL (1.7-2.3); Osmolality Calculated 315 mOsm/kg (285-295); Phosphorus 5.8 mg/dL (2.5-4.5); Potassium 4.7 mmol/L (3.5-5.1); Sodium 136 mmol/L (136-145); Total Bilirubin 0.3 mg/dL (0.15-1.2); Total Protein 5.8 g/dL (6.6-8.7); Triglycerides 75 mg/dL (0-150)
[2021-11-18] MEDS: heparin 5,000 unit/mL INJ 1 mL IV (02:53)
[2021-11-18 02:57] LABS: Slide Review Slide Review Perform
[2021-11-18 02:59] LABS: Positive M 1
--- NOTE | 2021-11-18 03:12 | PC.NURSE ---
Patient arrived on med/surg from ED with Heparin infusing at 2ml/hr which is not correct per protocol. Dr. Escobar was notified, he states to continue as it is for now until the next PTT is drawn, then start per protocol after PTT results. Results were 23.8 a 5000 unit bolus was administered and rate was changed to 28ml/hr to start per protocol.
[2021-11-18] MEDS: levothyroxine 175 mcg Tablet PO (05:12)
[2021-11-18] MEDS: azithromycin 250 mg Tablet 500 MG PO (08:25)
[2021-11-18] MEDS: pantoprazole DR 40 mg Tablet PO ×2 (08:25→21:21)
[2021-11-18] MEDS: hyDRALAzine 50 mg Tablet 100 MG PO ×3 (08:25→20:20)
[2021-11-18] MEDS: amlodipine 10 mg Tablet PO (08:25)
[2021-11-18] MEDS: isosorbide mononitrate ER 30 mg Tablet PO (08:25)
[2021-11-18] MEDS: duloxetine 60 mg Capsule PO (08:25)
[2021-11-18] MEDS: gabapentin 300 mg Capsule PO ×2 (08:25→17:26)
[2021-11-18] MEDS: clopidogrel 75 mg Tablet PO (08:25)
[2021-11-18] MEDS: dexamethasone 4 mg/mL INJ 6 MG IVP (08:26)
[2021-11-18 08:43] LABS: Glucose Point of Care 251 mg/dL (70-110)
[2021-11-18] MEDS: budesonide 0.5 mg/2 mL Neb INHALATION ×2 (08:52→21:13)
[2021-11-18] MEDS: insulin lispro 100 unit/1 mL SUBCUT ×4 (08:57→20:49)
[2021-11-18 10:03] LABS: Partial Thromboplastin Time 206.5 SECONDS (23.9-36.7)
--- NOTE | 2021-11-18 10:16 | PC.NURSE ---
critical ptt phoned to Dr. Ybarra with orders to stop heparin and repeat PTT per protocol. pt is currently out of room in nuc med for scan. Phoned and spoke with Clark in biomed to stop heparin.
[2021-11-18 11:09] LABS: Glucose Point of Care 237 mg/dL (70-110)
--- NOTE | 2021-11-18 12:02 | P.PN_ITS ---
Subjective Subjective: Was seen and examined this morning, no acute events overnight. VQ scan: Low probability for pulmonary embolus Medications: Medication Review Details: Generic Name Dose Route Start Last Admin Trade Name Ermelinda PRN Reason Stop Dose Admin Albuterol/Ipratrop ium 3 ml 11/17/21 20:00 11/18/21 08:52 Ipratropium-Albu terol 3 Ml Neb INHALATION 3 ml Q6H.RESP HOME Administration Aripiprazole 20 mg 11/17/21 22:00 11/17/21 21:24 Aripiprazole 10 Mg Tablet PO 20 mg DAILY@22 HOME Administration Atorvastatin Calci um 20 mg 11/17/21 22:00 11/17/21 21:25 Atorvastatin 40 Mg Tablet PO 20 mg DAILY@22 HOME Administration Azithromycin 500 mg 11/18/21 09:00 11/18/21 08:25 Azithromycin 250 Mg Tablet PO 11/21/21 08:59 500 mg DAILY HOME Administration Protocol Budesonide 0.5 mg 11/17/21 20:00 11/18/21 08:52 Budesonide 0.5 M g/2 Ml Neb INHALATION 0.5 mg BID.RESPIRATORY S [facility] Administration Clopidogrel Bisulf ate 75 mg 11/18/21 08:00 11/18/21 08:25 Clopidogrel 75 M g Tablet PO 75 mg DAILY@08 HOME Administration Dexamethasone 6 mg 11/18/21 09:00 11/18/21 08:26 Dexamethasone 4 Mg/Ml Inj IVP 6 mg Q24H HOME Administration Duloxetine HCl 60 mg 11/18/21 08:00 11/18/21 08:25 Duloxetine 60 Mg Capsule PO 60 mg DAILY@08 HOME Administration Gabapentin 300 mg 11/17/21 20:33 11/18/21 08:25 Gabapentin 300 M g Capsule PO 300 mg BID HOME Administration Heparin Sodium (Po rcine) 0 unit 11/17/21 17:25 11/18/21 02:53 Heparin 5,000 Un it/Ml Inj 1 Ml IV 5,000 unit PRN PRN Administration Heparin weight-ba se protocol Protocol Hydralazine HCl 100 mg 11/17/21 21:00 11/18/21 08:25 Hydralazine 50 M g Tablet PO 100 mg TID HOME Administration Heparin Sodium/Sod ium Chloride 25,000 unit in 50 0 mls @ 0 mls/hr 11/17/21 17:30 11/18/21 02:45 Heparin Drip IV 15.43 unit/kg/hr .Q0M HOME 28 mls/hr Titration Protocol Per Protocol Ceftriaxone Sodium 1,000 mg/ 50 mls @ 100 mls/ hr 11/17/21 20:33 11/17/21 22:48 Sodium Chloride IV Infused Q24H HOME Infusion Protocol Insulin Detemir 30 unit 11/17/21 20:33 11/18/21 08:34 Insulin Detemir 100 Units/1 Ml SUBCUT 30 unit BID HOME Administration Insulin Human Lisp ro 0 unit 11/18/21 08:00 11/18/21 11:45 Insulin Lispro 1 00 Unit/1 Ml SUBCUT 6 unit WM&BEDTIME HOME Administration Protocol Isosorbide Mononit rate 30 mg 11/18/21 08:00 11/18/21 08:25 Isosorbide [place] itrate Er 30 Mg Ta blet PO 30 mg DAILY@08 HOME Administration Levothyroxine Sodi um 175 mcg 11/18/21 06:00 11/18/21 05:12 Levothyroxine 17 5 Mcg Tablet PO 175 mcg QAM HOME Administration Pantoprazole Sodiu m 40 mg 11/17/21 22:00 11/18/21 08:[address] 40 Mg Tablet PO 40 mg BID@ [facility] Administration Trazodone HCl 100 mg 11/17/21 21:00 11/17/21 21:26 Trazodone 100 Mg Tablet PO 100 mg BEDTIME HOME Administration Vitals/I&O/Wt Last Vital Signs Temp 98.1 F 11/18/21 11:34 Pulse 74 11/18/21 11:34 Resp 18 11/18/21 11:34 BP 171/58 11/18/21 11:34 Pulse Ox 90 11/18/21 11:34 O2 Del Method Nasal Cannula 11/18/21 11:34 O2 Flow Rate 3 11/18/21 08:51 11/17/21 11/18/21 11/18/21 22:59 06:59 14:59 Intake Total 100 / 100 14.467 / 114.467 120 / 120 Output Total 400 / 400 2000 / 2400 Balance -300 / -300 -1985.533 / -2285.533 120 / 120 Weight last 48 hrs Weight 98.118 kg Weight 98.203 kg Weight 90.718 kg Physical Exam 2 Const: COMMON NORMALS: patient oriented x3 Resp: COMMON NORMALS: clear to auscultation bilaterally EFFORT & INSPECTION: Yes symmetric chest movement AUSCULTATION: clear to auscultation bilaterally Cardio: COMMON NORMALS: regular rate, regular rhythm, S1 normal heart sound present, S2 normal heart sound present, No gallops present (Cardio), No murmurs present (Cardio), No rub (Cardio) and Peripheral pulses 2+ throughout RATE: regular rate RHYTHM: regular rhythm HEART SOUNDS: S1 normal heart sound present and S2 normal heart sound present PERIPHERAL PULSES: Peripheral puls es 2+ throughout GI: COMMON NORMALS: Normal to inspection, nondistended, normoactive bowel sounds present, Soft to palpation, non-tender, No hepatosplenomegaly present and no masses AUSCULTATION: Yes normoactive bowel sounds PALPATION: Yes Soft to palpation and Yes No hepatosplenomegaly present RECTAL EXAM: deferred Extremity: COMMON NORMALS: no clubbing, cyanosis or edema and no pedal edema Neuro: COMMON NORMALS: patient oriented x3 Data : 11/18/21 01:32 11/18/21 01:32 Micro: Microbiology 11/17/21 23:38 Legionella Urinary Antigen - Final Urine,Voided Bacterial Antigens - Final 11/17/21 17:45 Blood Culture - Preliminary Blood SPECIMEN COLLECTED 11/17/21 17:41 Blood Culture - Preliminary Blood SPECIMEN COLLECTED A&P Assessment and plan (1) Hypoxia: Status: Acute (2) COVID-19: Status: Acute (3) Acute kidney injury superimposed on CKD: Baseline creatinine seems to be 1.5-1.8. Currently 2.8. Medical reconciliation done for nephrotoxic drugs. Cannot rule out secondary to CRS. Continue to monitor daily for now. Status: Acute (4) Atypical chest pain: Most likely atypical chest pain. Cannot rule out chest pain secondary thromboembolism. Cycle troponins. Most recent cardiac angiogram in 2017 appreciated. Heparin drip as for possible VTE. Check A1c, lipid panel. Continue home dose of statin and Plavix. Status: Acute (5) Hypothyroidism (acquired): Continue home dose of levothyroxine Status: Chronic (6) Benign essential HTN: Goal blood pressure less than 140/90 mmHg. Continue with home dose of amlodipine, clonidine as needed, hydralazine 100 mg 3 times a day, Imdur 30 mg daily. Patient having slight bradycardia in the ER. We will hold off on verapamil for now. We will add back if heart rate improves her blood pressure elevated. Status: Acute (7) Hyperlipidemia, unspecified: Status: Acute (8) Type 2 diabetes mellitus without complications: Check A1c. Insulin sliding scale at low-dose protocol. Carb consistent diet. Status: Acute Plan 81-year-old female with recent diagnosis of COVID-19 who was sent home few days ago on oral antibiotic and steroid pack 2 L of oxygen supplementation presented to the ER because of chest pressure and worsening oxygen requirements. Hypoxia secondary to COVID-19 pneumonia: Mild to moderate disease. Oxygen supplementation keeping saturation over 88%. Dexamethasone 6 mg daily to finish a 10-day course. Received 2 days of remdesivir on previous admission. For now we will hold off on remdesivir as patient has been positive for COVID-19 for quite some time now. Vitamin C, zinc. DuoNeb every 6 hour, budesonide twice daily Pulmonary toilet with incentive spirometry flutter valve. We will monitor inflammatory markers including CRP, D-dimer every 48 hours. D-dimer elevated. Cannot rule out pulmonary embolism. Cannot do CTA given CKD. Will do lower limb Dopplers, VQ scan. For now we will start on heparin drip while VQ scan can be done. If VQ scan shows low probability we will stop heparin drip. Check sputum culture, procalcitonin, urine Legionella, bacterial antigen, blood culture. Low suspicion of bacterial pneumonia. For now we will start on IV ceftriaxone and oral azithromycin while cultures are pending. Will de-escalate accordingly. Given hypoxia will try to keep patient as negative as possible. Recent echocardiogram done in recent hospitalization appreciated. Plan to keep patient net negative. IV Lasix 80 mg once. Will dose further Lasix as per fluid status. Strict input output charting, daily weights. Continue other chronic medication. Full code. Heparin drip Protonix for PUD prophylaxis Carb consistent diet. Attestations Medical Necessity Statement*: Patient is still in hospital for management of hypoxia secondary to COVID-19 pneumonia. 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
--- NOTE | 2021-11-18 12:02 | PC.CHAP ---
Pastoral Care Encounter/Spiritual Assessment Type of Contact [] Declined surg nurse visit [] Patient/Family/Request visit [] Outpatient visit [] Follow-up visit [] Physician referral [] Code/Alert [x] Routine visit [] Staff referral [] Actively dying [x] Patient sleeping [] Family support [] [] Out of room [] Palliative care [] [] Receiving care in room [] Pre-surgical visit [] Trauma [] Long length of stay [] ICU visit [] Other: Relational/Emotional Strength [] Patient feels connected with others/family/visitors/staff [] Distress [] Loneliness/isolation [] Abandonment Spirituality of Patient [] Person of Katt [] Attends Mormon of their Katt [] Believes in Prayer [] Reads Bible or Scientology materials [] There are Spiritual issues to be addressed Computer Systems Consultant Interventions [] Prayer [] Active listening [] Non-anxious presence [] Spiritual/emotional support [] Crisis/trauma care [] Spiritual counseling [] Bereavement support [] Provided bereavement packet [] Provided Bible/devotional materials [] Provided toy/stuffed animal, coloring book to patient or family member [] Provided Communion [] Anointing/[place] [] Salvation [] Completed spiritual assessment [] Other: Impact on Illness or Injury [] Angry [] Fearful [] Anxious [] Often cries [] Exhaustion [] Unable to work [] Unable to attend islam [] Unable to walk/stand [] Unable to read [] Unable to drive [] Unable to eat/drink [] Unable to sleep [] Unable to be with family [] Patient intubated [] Other: Summary Time spent with patient
--- NOTE | 2021-11-18 14:46 | NM_ITS ---
WS: [id number] NUCLEAR MEDICINE LUNG VENTILATION AND PERFUSION CLINICAL INFORMATION: pe TECHNIQUE: Ventilation/perfusion lung scan with 32.1 mCi technetium 99m DTPA. 5.1 mCi technetium 99m MAA COMPARISON: CT chest November 17, 2021 FINDINGS: Relatively symmetric bilateral radiotracer uptake on the perfusion images. Patchy heterogeneous activ ity on the ventilatory images with deposition along the central bronchi. Patchy uptake due to emphyse matous changes. No mismatched perfusion defects to suggest pulmonary embolus. NM/NM pul vent and perfus* [id number] IMPRESSION: 1. Low probability for pulmonary embolus.
[2021-11-18 14:54] LABS: Partial Thromboplastin Time 28.2 SECONDS (23.9-36.7)
[2021-11-18 17:20] LABS: Glucose Point of Care 231 mg/dL (70-110)
[2021-11-18] MEDS: acetaminophen 325 mg Tablet 650 MG PO (17:32)
[2021-11-18] MEDS: trazodone 100 mg Tablet PO (20:09)
[2021-11-18] MEDS: cefTRIAXone 1,000 MG in sodium chloride 0.9% (plus) 50 ML 100 MG IV (20:16)
[2021-11-18 20:37] LABS: Glucose Point of Care 275 mg/dL (70-110)
[2021-11-18] MEDS: atorvastatin 40 mg Tablet 20 MG PO (21:21)
[2021-11-18] MEDS: ARIPiprazole 10 mg Tablet 20 MG PO (21:22)
[2021-11-19] VITALS (12 sets, daily range): BP systolic 126–158; BP diastolic 51–67; PULSE 70–84; RESP 15–20; TEMP 36.6–36.8; O2SAT 83–94
[2021-11-19] MEDS: ipratropium-albuterol 3 mL Neb INHALATION ×4 (03:42→20:43)
[2021-11-19 04:40] LABS: Basophils % 0.1 %; Hematocrit 25.8 % (37.0-47.0); Hemoglobin 8.1 g/dL (11.5-15.3); Mean Corpuscular HGB Conc 31.4 g/dL (30.0-36.0); Mean Corpuscular Hemoglobin 29.8 pg (28.0-34.0); Mean Corpuscular Volume 94.9 fl (81-99); Mean Platelet Volume 10.5 fL (7.4-10.4); Monocytes # 0.6 10^3/uL (0.2-0.9); Monocytes % 5.4 %; Neutrophils # 8.55 10^3/uL (1.8-7.7); Neutrophils % 83.1 %; Nucleated Red Blood Cells % 0 %; Platelet Count 236 10^3/cmm (130-400); Red Blood Count 2.72 10^6/uL (4.1-5.3); White Blood Count 10.3 10^3/uL (4.0-10.0)
[2021-11-19 05:07] LABS: Alanine Aminotransferase 65 U/L (0-33); Albumin Level 3.5 g/dL (3.5-5.2); Alkaline Phosphatase 59 U/L (35-105); Anion Gap 16.1 (5-19); Aspartate Amino Transferase 23 U/L (0-32); Blood Urea Nitrogen 76 mg/dL (8-23); Calcium 8.9 mg/dL (8.5-10.5); Carbon Dioxide 27 mmol/L (22-29); Chloride 99 mmol/L (98-107); Globulin 2.4 g/dL (1.3-4.6); Glucose 77 mg/dL (65-115); Osmolality Calculated 307 mOsm/kg (285-295); Potassium 4.1 mmol/L (3.5-5.1); Sodium 138 mmol/L (136-145); Total Bilirubin 0.3 mg/dL (0.15-1.2); Total Protein 5.9 g/dL (6.6-8.7)
[2021-11-19] MEDS: levothyroxine 175 mcg Tablet PO (05:35)
[2021-11-19 06:26] LABS: Glucose Point of Care 95 mg/dL (70-110)
[2021-11-19] MEDS: clopidogrel 75 mg Tablet PO (08:00)
[2021-11-19] MEDS: isosorbide mononitrate ER 30 mg Tablet PO (08:00)
[2021-11-19] MEDS: amlodipine 10 mg Tablet PO (08:00)
[2021-11-19] MEDS: hyDRALAzine 50 mg Tablet 100 MG PO ×3 (08:00→21:04)
[2021-11-19] MEDS: pantoprazole DR 40 mg Tablet PO ×2 (08:00→21:03)
[2021-11-19] MEDS: gabapentin 300 mg Capsule PO ×2 (08:00→17:52)
[2021-11-19] MEDS: dexamethasone 4 mg/mL INJ 6 MG IVP (08:00)
[2021-11-19] MEDS: duloxetine 60 mg Capsule PO (08:00)
[2021-11-19] MEDS: budesonide 0.5 mg/2 mL Neb INHALATION ×2 (08:23→20:43)
[2021-11-19] MEDS: heparin 5,000 unit/mL INJ 1 mL 5000 UNIT SUBCUT ×2 (09:02→21:05)
[2021-11-19] MEDS: azithromycin 250 mg Tablet 500 MG PO (09:02)
[2021-11-19 11:52] LABS: Glucose Point of Care 273 mg/dL (70-110)
[2021-11-19] MEDS: insulin lispro 100 unit/1 mL SUBCUT ×3 (13:00→21:05)
--- NOTE | 2021-11-19 13:18 | P.PN_ITS ---
Subjective Subjective: Was seen and examined this morning, currently saturating well on 2 L supplemental oxygen, Denied any significant shortness of breath, serum creatinine is improving. Good urine output in the last 24 hours. Has been afebrile. Medications: Medication Review Details: Generic Name Dose Route Start Last Admin Trade Name Ermelinda PRN Reason Stop Dose Admin Acetaminophen 650 mg 11/17/21 20:33 11/18/21 17:32 Acetaminophen 32 5 Mg Tablet PO 650 mg Q6H PRN Administration Mild/Mod Pain Or Temp >/= 101 Albuterol/Ipratrop ium 3 ml 11/17/21 20:00 11/19/21 08:23 Ipratropium-Albu terol 3 Ml Neb INHALATION 3 ml Q6H.RESP HOME Administration Amlodipine [place] e 10 mg 11/19/21 09:00 11/19/21 08:00 Amlodipine 10 Mg Tablet PO 10 mg DAILY HOME Administration Aripiprazole 20 mg 11/17/21 22:00 11/18/21 21:22 Aripiprazole 10 Mg Tablet PO 20 mg DAILY@22 HOME Administration Atorvastatin Calci um 20 mg 11/17/21 22:00 11/18/21 21:21 Atorvastatin 40 Mg Tablet PO 20 mg DAILY@22 HOME Administration Azithromycin 500 mg 11/18/21 09:00 11/19/21 09:02 Azithromycin 250 Mg Tablet PO 11/21/21 08:59 500 mg DAILY HOME Administration Protocol Budesonide 0.5 mg 11/17/21 20:00 11/19/21 08:23 Budesonide 0.5 M g/2 Ml Neb INHALATION 0.5 mg BID.RESPIRATORY S CH Administration Clopidogrel Bisulf ate 75 mg 11/18/21 08:00 11/19/21 08:00 Clopidogrel 75 M g Tablet PO 75 mg DAILY@08 HOME Administration Dexamethasone 6 mg 11/18/21 09:00 11/19/21 08:00 Dexamethasone 4 Mg/Ml Inj IVP 6 mg Q24H HOME Administration Duloxetine HCl 60 mg 11/18/21 08:00 11/19/21 08:00 Duloxetine 60 Mg Capsule PO 60 mg DAILY@08 HOME Administration Gabapentin 300 mg 11/17/21 20:33 11/19/21 08:00 Gabapentin 300 M g Capsule PO 300 mg BID HOME Administration Heparin Sodium (Po rcine) 5,000 unit 11/19/21 08:30 11/19/21 09:02 Heparin 5,000 Un it/Ml Inj 1 Ml SUBCUT 5,000 unit Q12H HOME Administration Hydralazine HCl 100 mg 11/17/21 21:00 11/19/21 08:00 Hydralazine 50 M g Tablet PO 100 mg TID HOME Administration Ceftriaxone Sodium 1,000 mg/ 50 mls @ 100 mls/ hr 11/17/21 20:33 11/18/21 20:46 Sodium Chloride IV Infused Q24H HOME Infusion Protocol Insulin Detemir 30 unit 11/17/21 20:33 11/19/21 08:01 Insulin Detemir 100 Units/1 Ml SUBCUT 30 unit BID HOME Administration Insulin Human Lisp ro 0 unit 11/18/21 08:00 11/19/21 13:00 Insulin Lispro 1 00 Unit/1 Ml SUBCUT 8 unit WM&BEDTIME HOME Administration Protocol Isosorbide Mononit rate 30 mg 11/18/21 08:00 11/19/21 08:00 Isosorbide [place] itrate Er 30 Mg Ta blet PO 30 mg DAILY@08 HOME Administration Levothyroxine Sodi um 175 mcg 11/18/21 06:00 11/19/21 05:35 Levothyroxine 17 5 Mcg Tablet PO 175 mcg QAM HOME Administration Pantoprazole Sodiu m 40 mg 11/17/21 22:00 11/19/21 08:[address] 40 Mg Tablet PO 40 mg BID@ HOME Administration Trazodone HCl 100 mg 11/17/21 21:00 11/18/21 20:09 Trazodone 100 Mg Tablet PO 100 mg BEDTIME HOME Administration Vitals/I&O/Wt Last Vital Signs Temp 98 F 11/19/21 12:00 Pulse 84 11/19/21 12:00 Resp 15 11/19/21 12:00 BP 150/65 11/19/21 12:00 Pulse Ox 90 11/19/21 12:00 O2 Del Method 11/19/21 08:23 O2 Flow Rate 4 11/19/21 08:23 11/18/21 11/19/21 11/19/21 22:59 06:59 14:59 Intake Total 770 / 1481 260 / 260 Output Total 200 / 200 600 / 800 700 / 700 Balance 570 / 1281 -600 / 681 -440 / -440 Weight last 48 hrs Weight 97.885 kg Weight 98.118 kg Weight 98.203 kg Physical Exam Const: COMMON NORMALS: patient oriented x3 Resp: COMMON NORMALS: clear to auscultation bilaterally EFFORT & INSPECTION: Yes symmetric chest movement AUSCULTATION: clear to auscultation bilaterally Cardio: COMMON NORMALS: regular rate, regular rhythm, S1 normal heart sound present, S2 normal heart sound present, No gallops present (Cardio), No murmurs present (Cardio), No rub (Cardio) and Peripheral pulses 2+ throughout RATE: regular rate RHYTHM: regular rhythm HEART SOUNDS: S1 normal heart sound present and S2 normal heart sound present PERIPHERAL PULSES: Peripheral pulses 2+ throughout GI: COMMON NORMALS: Normal to inspection, nondistended, normoactive bowel sounds present, Soft to palpation, non-tender, No hepatosplenomegaly present and no masses AUSCULTATION: Yes normoactive bowel sounds PALPATION: Yes Soft to palpation and Yes No hepatosplenomegaly present RECTAL EXAM: deferred Extremity: COMMON NORMALS: no clubbing, cyanosis or edema and no pedal edema Neuro: COMMON NORMALS: patient oriented x3 Data : 11/19/21 04:20 11/19/21 04:20 Micro: Microbiology 11/17/21 17:45 Blood Culture - Preliminary Blood NEGATIVE TO DATE 11/17/21 17:41 Blood Culture - Preliminary Blood NEGATIVE TO DATE 11/17/21 23:38 Legionella Urinary Antigen - Final Urine,Voided Bacterial Antigens - Final A&P Assessment and plan (1) Hypoxia: Status: Acute (2) COVID-19: Status: Acute (3) Acute kidney injury superimposed on CKD: Baseline creatinine seems to be 1.5-1.8. Currently 2.8. Medical reconciliation done for nephrotoxic drugs. Cannot rule out secondary to CRS. Continue to monitor daily for now. Status: Acute (4) Atypical chest pain: Most likely atypical chest pain. Cannot rule out chest pain secondary throm boembolism. Cycle troponins. Most recent cardiac angiogram in 2017 appreciated. Heparin drip as for possible VTE. Check A1c, lipid panel. Continue home dose of statin and Plavix. Status: Acute (5) Hypothyroidism (acquired): Continue home dose of levothyroxine Status: Chronic (6) Benign essential HTN: Goal blood pressure less than 140/90 mmHg. Continue with home dose of amlodipine, clonidine as needed, hydralazine 100 mg 3 times a day, Imdur 30 mg daily. Patient having slight bradycardia in the ER. We will hold off on verapamil for now. We will add back if heart rate improves her blood pressure elevated. Status: Acute (7) Hyperlipidemia, unspecified: Status: Acute (8) Type 2 diabetes mellitus without complications: Check A1c. Insulin sliding scale at low-dose protocol. Carb consistent diet. Status: Acute Plan 81-year-old female with recent diagnosis of COVID-19 who was sent home few days ago on oral antibiotic and steroid pack 2 L of oxygen supplementation presented to the ER because of chest pressure and worsening oxygen requirements. Hypoxia secondary to COVID-19 pneumonia: Mild to moderate disease. VQ scan: Low probability for pulmonary embolism CT chest without contrast: There are multiple calcified granulomas in the left lung. There is relaxation atelectasis in dependent portion of both lower lobes. There is some nonspecific ground-glass opacity in both lungs but more on the left than on the right. Ground-glass opacities are mainly in a peribronchial and central distribution.Bilateral pleural effusions. Lower extremity Dopplers were negative for DVT Recent 2D echo: LV systolic function is normal with EF 55 to 60% Moderate left ventricular hypertrophy is seen. Mild to moderate mitral annular calcification.? Mild mitral ?regurgitation.?Aortic valve is grossly normal.? Mild to moderate aortic regurgitation. Mild tricuspid regurgitation. Small sized pericardial effusion noted. Blood culture negative Urine Legionella antigen negative Bacterial antigen panel negative monitor inflammatory markers including CRP, D-dimer every 48 hours Continue dexamethasone Received 2 days of remdesivir on previous admission. For now we will hold off on remdesivir as patient has been positive for COVID-19 for quite some time now. Vitamin C, zinc. DuoNeb every 6 hour, budesonide twice daily Pulmonary toilet with incentive spirometry flutter valve. Was initially on heparin drip which has been stopped. on IV ceftriaxone and oral azithromycin DVT prophylaxis: On heparin Full code. Attestations Medical Necessity Statement*: Patient is to be in hospital for management of hypoxia. Time Spent in Patient Care: Greater than 35 minutes (>than 50% of time sp ent in counselling and/or direct pt care on unit) . 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
[2021-11-19] MEDS: calcium carbonate 500 mg Chew Tablet 1000 MG PO (15:18)
[2021-11-19 17:11] LABS: Glucose Point of Care 306 mg/dL (70-110)
[2021-11-19 20:39] LABS: Glucose Point of Care 385 mg/dL (70-110)
[2021-11-19] MEDS: atorvastatin 40 mg Tablet 20 MG PO (21:03)
[2021-11-19] MEDS: trazodone 100 mg Tablet PO (21:03)
[2021-11-19] MEDS: cefTRIAXone 1,000 MG in sodium chloride 0.9% (plus) 50 ML 100 MG IV (21:03)
[2021-11-19] MEDS: ARIPiprazole 10 mg Tablet 20 MG PO (21:05)
[2021-11-20] VITALS (13 sets, daily range): BP systolic 133–190; BP diastolic 55–71; PULSE 73–100; RESP 15–22; TEMP 36.6–36.7; O2SAT 83–93
[2021-11-20] MEDS: ipratropium-albuterol 3 mL Neb INHALATION ×4 (01:14→21:40)
[2021-11-20 04:57] LABS: Basophils % 0.1 %; Hematocrit 25.6 % (37.0-47.0); Hemoglobin 7.8 g/dL (11.5-15.3); Lymphocytes # 0.7 10^3/uL (0.8-4.8); Lymphocytes % 8.4 %; Mean Corpuscular HGB Conc 30.5 g/dL (30.0-36.0); Mean Corpuscular Hemoglobin 29.5 pg (28.0-34.0); Mean Platelet Volume 10.4 fL (7.4-10.4); Monocytes # 0.5 10^3/uL (0.2-0.9); Monocytes % 5.8 %; Neutrophils # 6.69 10^3/uL (1.8-7.7); Neutrophils % 83.9 %; Nucleated Red Blood Cells % 0 %; Platelet Count 219 10^3/cmm (130-400); Red Blood Count 2.64 10^6/uL (4.1-5.3); Red Cell Distribution Width 15.3 % (12.1-15.1)
[2021-11-20 05:36] LABS: Alanine Aminotransferase 58 U/L (0-33); Albumin Level 3.4 g/dL (3.5-5.2); Alkaline Phosphatase 58 U/L (35-105); Anion Gap 13.2 (5-19); Aspartate Amino Transferase 24 U/L (0-32); Blood Urea Nitrogen 61 mg/dL (8-23); Carbon Dioxide 29 mmol/L (22-29); Chloride 101 mmol/L (98-107); Globulin 2.3 g/dL (1.3-4.6); Glucose 170 mg/dL (65-115); Osmolality Calculated 309 mOsm/kg (285-295); Potassium 4.2 mmol/L (3.5-5.1); Sodium 139 mmol/L (136-145); Total Bilirubin 0.4 mg/dL (0.15-1.2); Total Protein 5.7 g/dL (6.6-8.7)
[2021-11-20 06:15] LABS: Glucose Point of Care 157 mg/dL (70-110)
[2021-11-20] MEDS: levothyroxine 175 mcg Tablet PO (06:25)
[2021-11-20] MEDS: budesonide 0.5 mg/2 mL Neb INHALATION ×2 (07:40→21:40)
[2021-11-20] MEDS: insulin lispro 100 unit/1 mL SUBCUT ×4 (09:05→22:15)
[2021-11-20] MEDS: duloxetine 60 mg Capsule PO (09:06)
[2021-11-20] MEDS: dexamethasone 4 mg/mL INJ 6 MG IVP (09:06)
[2021-11-20] MEDS: azithromycin 250 mg Tablet 500 MG PO (09:06)
[2021-11-20] MEDS: heparin 5,000 unit/mL INJ 1 mL 5000 UNIT SUBCUT ×2 (09:06→22:16)
[2021-11-20] MEDS: gabapentin 300 mg Capsule PO ×2 (09:06→17:26)
[2021-11-20] MEDS: hyDRALAzine 50 mg Tablet 100 MG PO ×3 (09:06→22:08)
[2021-11-20] MEDS: amlodipine 10 mg Tablet PO (09:06)
[2021-11-20] MEDS: clopidogrel 75 mg Tablet PO (09:07)
[2021-11-20] MEDS: isosorbide mononitrate ER 30 mg Tablet PO (09:07)
[2021-11-20] MEDS: pantoprazole DR 40 mg Tablet PO ×2 (09:11→22:07)
[2021-11-20 11:05] LABS: Glucose Point of Care 266 mg/dL (70-110)
--- NOTE | 2021-11-20 11:17 | PC.SOCIAL ---
IMM update IMM updated with patient. Patient verbalized understanding. Copy of page 2 provided. Chart updated with Initial,dated and timed.
--- NOTE | 2021-11-20 12:45 | PM.PN ---
Subjective Subjective: Patient Was seen and examined this morning,, was complaining of not felling so well,coughing is bad today,she sat in chair for sometime and has been visibly more in distress. Medications: Medication Review Details: Generic Name Dose Route Start Last Admin Trade Name Freq PRN Reason Stop Dose Admin Acetaminophen 650 mg 11/17/21 20:33 11/18/21 17:32 Acetaminophen 32 5 Mg Tablet PO 650 mg Q6H PRN Administration Mild/Mod Pain Or Temp >/= 101 Albuterol/Ipratrop ium 3 ml 11/17/21 20:00 11/19/21 08:23 Ipratropium-Albu terol 3 Ml Neb INHALATION 3 ml Q6H.RESP HOME Administration Amlodipine Besylat e 10 mg 11/19/21 09:00 11/19/21 08:00 Amlodipine 10 Mg Tablet PO 10 mg DAILY HOME Administration Aripiprazole 20 mg 11/17/21 22:00 11/18/21 21:22 Aripiprazole 10 Mg Tablet PO 20 mg DAILY@22 HOME Administration Atorvastatin Calci um 20 mg 11/17/21 22:00 11/18/21 21:21 Atorvastatin 40 Mg Tablet PO 20 mg DAILY@22 HOME Administration Azithromycin 500 mg 11/18/21 09:00 11/19/21 09:02 Azithromycin 250 Mg Tablet PO 11/21/21 08:59 500 mg DAILY HOME Administration Protocol Budesonide 0.5 mg 11/17/21 20:00 11/19/21 08:23 Budesonide 0.5 M g/2 Ml Neb INHALATION 0.5 mg BID.RESPIRATORY S [facility] Administration Clopidogrel Bisulf ate 75 mg 11/18/21 08:00 11/19/21 08:00 Clopidogrel 75 M g Tablet PO 75 mg DAILY@08 HOME Administration Dexamethasone 6 mg 11/18/21 09:00 11/19/21 08:00 Dexamethasone 4 Mg/Ml Inj IVP 6 mg Q24H HOME Administration Duloxetine HCl 60 mg 11/18/21 08:00 11/19/21 08:00 Duloxetine 60 Mg Capsule PO 60 mg DAILY@08 HOME Administration Gabapentin 300 mg 11/17/21 20:33 11/19/21 08:00 Gabapentin 300 M g Capsule PO 300 mg BID HOME Administration Heparin Sodium (Po rcine) 5,000 unit 11/19/21 08:30 11/19/21 09:02 Heparin 5,000 Un it/Ml Inj 1 Ml SUBCUT 5,000 unit Q12H HOME Administration Hydralazine HCl 100 mg 11/17/21 21:00 11/19/21 08:00 Hydralazine 50 M g Tablet PO 100 mg TID HOME Administration Ceftriaxone Sodium 1,000 mg/ 50 mls @ 100 mls/ hr 11/17/21 20:33 11/18/21 20:46 Sodium Chloride IV Infused Q24H HOME Infusion Protocol Insulin Detemir 30 unit 11/17/21 20:33 11/19/21 08:01 Insulin Detemir 100 Units/1 Ml SUBCUT 30 unit BID HOME Administration Insulin Human Lisp ro 0 unit 11/18/21 08:00 11/19/21 13:00 Insulin Lispro 1 00 Unit/1 Ml SUBCUT 8 unit WM&BEDTIME HOME Administration Protocol Isosorbide Mononit rate 30 mg 11/18/21 08:00 11/19/21 08:00 Isosorbide [place] itrate Er 30 Mg Ta blet PO 30 mg DAILY@08 HOME Administration Levothyroxine Sodi um 175 mcg 11/18/21 06:00 11/19/21 05:35 Levothyroxine 17 5 Mcg Tablet PO 175 mcg QAM HOME Administration Pantoprazole Sodiu m 40 mg 11/17/21 22:00 11/19/21 08:[address] 40 Mg Tablet PO 40 mg BID@ HOME Administration Trazodone HCl 100 mg 11/17/21 21:00 11/18/21 20:09 Trazodone 100 Mg Tablet PO 100 mg BEDTIME HOME Administration Vitals/I&O/Wt Last Vital Signs Temp 97.9 F 11/21/21 04:00 Pulse 68 11/21/21 05:56 Resp 15 11/21/21 04:00 BP 140/67 11/21/21 04:00 Pulse Ox 91 11/21/21 04:00 O2 Del Method 11/21/21 02:39 O2 Flow Rate 3 11/21/21 02:39 11/20/21 11/20/21 11/21/21 14:59 22:59 06:59 Intake Total 650 / 650 290 / 940 Output Total 1000 / 1000 700 / 1700 Balance -350 / -350 -410 / -760 Weight last 48 hrs Weight 97.023 kg Physical Exam Const: COMMON NORMALS: patient oriented x3 Resp: COMMON NORMALS: clear to auscultation bilaterally EFFORT & INSPECTION: Yes symmetric chest movement AUSCULTATION: clear to auscultation bilaterally Cardio: COMMON NORMALS: regular rate, regular rhythm, S1 normal heart sound present, S2 normal heart sound present, No gallops present (Cardio), No murmurs present (Cardio), No rub (Cardio) and Peripheral pulses 2+ throughout RATE: regular rate RHYTHM: regular rhythm HEART SOUNDS: S1 normal heart sound present and S2 normal heart sound present PERIPHERAL PULSES: Peripheral pulses 2+ throughout GI: COMMON NORMALS: Normal to inspection, nondistended, normoactive bowel sounds present, Soft to palpation, non-tender, No hepatosplenomegaly present and no masses AUSCULTATION: Yes normoactive bowel sounds PALPATION: Yes Soft to palpation and Yes No hepatosplenomegaly present RECTAL EXAM: deferred Extremity: COMMON NORMALS: no clubbing, cyanosis or edema and no pedal edema Neuro: COMMON NORMALS: patient oriented x3 Data : 11/21/21 04:44 11/21/21 04:44 A&P Assessment and plan (1) Hypoxia: Status: Acute (2) COVID-19: Status: Acute (3) Acute kidney injury superimposed on CKD: Baseline creatinine seems to be 1.5-1.8. Currently 2.8. Medical reconciliation done for nephrotoxic drugs. Cannot rule out secondary to CRS. Continue to monitor daily for now. Status: Acute (4) Atypical chest pain: Most likely atypical chest pain. Cannot rule out chest pain secondary thromboembolism. Cycle troponins. Most recent cardiac angiogram in 2017 appreciated. Heparin drip as for possible VTE. Check A1c, lipid panel. Continue home dose of statin and Plavix. Status: Acute (5) Hypothyroidism (acquired): Continue home dose of levothyroxine Status: Chronic (6) Benign essential HTN: Goal blood pressure less than 140/90 mmHg. Continue with home dose of amlodipine, clonidine as needed, hydralazine 100 mg 3 times a day, Imdur 30 mg daily. Patient having slight bradycardia in the ER. We will hold off on verapamil for now. We will add back if heart rate improves her blood pressure elevated. Status: Acute (7) Hyperlipidemia, unspecified: Status: Acute (8) Type 2 diabetes mellitus without complications: Check A1c. Insulin sliding scale at low-dose protocol. Carb consistent diet. Status: Acute Plan 81-year-old female with recent diagnosis of COVID-19 who was sent home few days ago on oral antibiotic and steroid pack 2 L of oxygen supplementation presented to the ER because of chest pressure and worsening oxygen requirements. Hypoxia secondary to COVID-19 pneumonia: Mild to moderate disease. VQ scan: Low probability for pulmonary embolism CT chest without contrast: There are multiple calcified granulomas in the left lung. There is relaxation atelectasis in dependent portion of both lower lobes. There is some nonspecific ground-glass opacity in both lungs but more on the left than on the right. Ground-glass opacities are mainly in a peribronchial and central distribution.Bilateral pleural effusions. Lower extremity Dopplers were negative for DVT Recent 2D echo: LV systolic function is normal with EF 55 to 60% Moderate left ventricular hypertrophy is seen. Mild to moderate mitral annular calcification.? Mild mitral ?regurgitation.?Aortic valve is grossly normal.? Mild to moderate aortic regurgitation. Mild tricuspid regurgitation. Small sized pericardial effusion noted. Blood culture negative Urine Legionella antigen negative Bacterial antigen panel negative monitor inflammatory markers including CRP, D-dimer every 48 hours Continue dexamethasone Received 2 days of remdesivir on previous admission. For now we will hold off on remdesivir as patient has been positive for COVID-19 for quite some time now. Vitamin C, zinc. DuoNeb every 6 hour, budesonide twice daily Pulmonary toilet with incentive spirometry flutter valve. Was initially on heparin drip which has been stopped. on IV ceftriaxone and oral azithromycin DVT prophylaxis: On heparin Full code. 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
[2021-11-20 17:03] LABS: Glucose Point of Care 270 mg/dL (70-110)
[2021-11-20 21:23] LABS: Glucose Point of Care 324 mg/dL (70-110)
[2021-11-20] MEDS: cefTRIAXone 1,000 MG in sodium chloride 0.9% (plus) 50 ML 100 MG IV (22:03)
[2021-11-20] MEDS: atorvastatin 40 mg Tablet 20 MG PO (22:07)
[2021-11-20] MEDS: ARIPiprazole 10 mg Tablet 20 MG PO (22:08)
[2021-11-20] MEDS: trazodone 100 mg Tablet PO (22:08)
[2021-11-20] MEDS: acetaminophen 325 mg Tablet 650 MG PO (22:16)
[2021-11-21] VITALS (8 sets, daily range): BP systolic 140–176; BP diastolic 60–72; PULSE 68–96; RESP 15–18; TEMP 36.6–36.8; O2SAT 91–95
[2021-11-21] MEDS: ipratropium-albuterol 3 mL Neb INHALATION ×2 (02:39→08:13)
[2021-11-21] MEDS: acetaminophen 325 mg Tablet 650 MG PO ×2 (02:45→10:56)
[2021-11-21 05:11] LABS: Basophils % 0.1 %; Hematocrit 26.8 % (37.0-47.0); Hemoglobin 8.2 g/dL (11.5-15.3); Lymphocytes # 1.6 10^3/uL (0.8-4.8); Lymphocytes % 15.1 %; Mean Corpuscular HGB Conc 30.6 g/dL (30.0-36.0); Mean Corpuscular Hemoglobin 29.4 pg (28.0-34.0); Mean Corpuscular Volume 96.1 fl (81-99); Mean Platelet Volume 10.4 fL (7.4-10.4); Monocytes # 0.8 10^3/uL (0.2-0.9); Monocytes % 7.8 %; Neutrophils # 8.19 10^3/uL (1.8-7.7); Neutrophils % 75.7 %; Nucleated Red Blood Cells % 0.2 %; Platelet Count 227 10^3/cmm (130-400); Red Blood Count 2.79 10^6/uL (4.1-5.3); Red Cell Distribution Width 15.5 % (12.1-15.1); White Blood Count 10.8 10^3/uL (4.0-10.0)
[2021-11-21 05:44] LABS: Alanine Aminotransferase 65 U/L (0-33); Albumin Level 3.6 g/dL (3.5-5.2); Alkaline Phosphatase 61 U/L (35-105); Anion Gap 12.9 (5-19); Aspartate Amino Transferase 29 U/L (0-32); Blood Urea Nitrogen 46 mg/dL (8-23); Calcium 9.4 mg/dL (8.5-10.5); Carbon Dioxide 32 mmol/L (22-29); Chloride 104 mmol/L (98-107); Globulin 2.1 g/dL (1.3-4.6); Glucose 48 mg/dL (65-115); Osmolality Calculated 309 mOsm/kg (285-295); Potassium 3.9 mmol/L (3.5-5.1); Sodium 145 mmol/L (136-145); Total Bilirubin 0.4 mg/dL (0.15-1.2); Total Protein 5.7 g/dL (6.6-8.7)
[2021-11-21] MEDS: levothyroxine 175 mcg Tablet PO (05:50)
[2021-11-21 06:47] LABS: Glucose Point of Care 115 mg/dL (70-110)
[2021-11-21] MEDS: budesonide 0.5 mg/2 mL Neb INHALATION (08:13)
[2021-11-21] MEDS: duloxetine 60 mg Capsule PO (08:53)
[2021-11-21] MEDS: hyDRALAzine 50 mg Tablet 100 MG PO (08:53)
[2021-11-21] MEDS: gabapentin 300 mg Capsule PO (08:54)
[2021-11-21] MEDS: clopidogrel 75 mg Tablet PO (08:54)
[2021-11-21] MEDS: amlodipine 10 mg Tablet PO (08:54)
[2021-11-21] MEDS: dexamethasone 4 mg/mL INJ 6 MG IVP (08:54)
[2021-11-21] MEDS: heparin 5,000 unit/mL INJ 1 mL 5000 UNIT SUBCUT (08:54)
[2021-11-21] MEDS: isosorbide mononitrate ER 30 mg Tablet PO (08:54)
[2021-11-21] MEDS: pantoprazole DR 40 mg Tablet PO (08:56)
--- NOTE | 2021-11-21 10:57 | PM.DCS ---
Discharge Providers Date of Admission: 11/17/21 16:12 Date of Discharge: November 21, 2021 Attending Provider at Admission: Carina Good MD Attending Provider at Discharge: Caden Ybarra MD Primary Care Provider: Andrea Katz MD Diagnoses at Discharge Discharge Diagnosis (1) Hypoxia: Status: Acute (2) COVID-19: Status: Acute (3) Acute kidney injury superimposed on CKD: Status: Acute (4) Atypical chest pain: Status: Acute (5) Hypothyroidism (acquired): Status: Chronic (6) Benign essential HTN: Status: Acute (7) Hyperlipidemia, unspecified: Status: Acute (8) Type 2 diabetes mellitus without complications: Status: Acute Reason for Visit Reason for Visit: SOB Hospital Course Hospital Course HPI: Carina Good? 81 year old female with past medical history of hypertension, hyperlipidemia he is to follow-up with Dr. Meadows as an outpatient, ascending aortic dilatation, CKD stage II, history of CAD, obstructive sleep apnea, type 2 diabetes mellitus with last angiogram in 2016 which showed nonobstructive CAD with recent diagnosis of COVID-19 when she was discharged on 11/05 on a steroid pack and Z-Mitchell.? Seen during that hospitalization she received remdesivir for 2 days presented back to the ER today because of worsening shortness of breath which started today morning after she had chest heaviness and chest pressure which was retrosternal while she was sitting in bed.? Patient was sent home few days ago on 2 L of oxygen supplementation which is new for her.? When presented to the ER she was saturating in low 80s on 2 L hence hospital service was contacted for further evaluation and management. Hospital course: She was admitted for the management of COVID-19 pneumonia, she was kept on, dexamethasone, antibiotics, supplemental oxygen as needed, DuoNebs, incentive spirometer, inflammatory markers were trended, VQ scan was negative, initially was on therapeutic anticoagulation with heparin which was later discontinued. Blood culture was negative, urine Legionella antigen and bacterial antigen panel was negative. CT chest without contrast:?There are multiple calcified granulomas in the left lung. There is relaxation atelectasis in dependent portion of both lower lobes. There is some nonspecific ground-glass opacity in both lungs but more on the left than on the right. Ground-glass opacities are mainly in a peribronchial and central distribution.Bilateral pleural effusions. Lower extremity Dopplers were negative for DVT. She responded fairly well to the above medical management at the time of discharge she was saturating well at her home baseline oxygen of 3 L, she was afebrile hemodynamically stable. 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 Overall patient responded well to above medical management and is being discharged home in stable condition, she has been continued on dexamethasone 4 mg p.o. daily for additional 7 days, as well as she has been started on albuterol, budesonide, and Advair inhaler, she will follow up with the primary care physician as outpatient. Physical Exam Const: COMMON NORMALS: patient oriented x3 Resp: COMMON NORMALS: clear to auscultation bilaterally EFFORT & INSPECTION: Yes symmetric chest movement AUSCULTATION: clear to auscultation bilaterally Cardio: COMMON NORMALS: regular rate, regular rhythm, S1 normal heart sound present, S2 normal heart sound present, No gallops present (Cardio), No murmurs present (Cardio), No rub (Cardio) and Peripheral pulses 2+ throughout RATE: regular rate RHYTHM: regular rhythm HEART SOUNDS: S1 normal heart sound present and S2 normal heart sound present PERIPHERAL PULSES: Peripheral pulses 2+ throughout GI: COMMON NORMALS: Normal to inspection, nondistended, normoactive bowel sounds present, Soft to palpation, non-tender, No hepatosplenomegaly present and no masses AUSCULTATION: Yes normoactive bowel sounds PALPATION: Yes Soft to palpation and Yes No hepatosplenomegaly present RECTAL EXAM: deferred Extremity: COMMON NORMALS: no clubbing, cyanosis or edema and no pedal edema Neuro: COMMON NORMALS: patient oriented x3 Discharge Data Studies Completed and Pending Completed Studies During Hospitalization Category Date Time Status CT chest wo con [id number] Stat Cat Scan 11/17/21 17:25 Completed XR chest 1V portable [id number] Stat Exams 11/17/21 13:27 Completed NM pul vent and perfus* [id number] Stat Nuc Med 11/18/21 14:46 Completed US renal BI* [id number] Routine Ultrasound 11/17/21 22:55 Completed US venous duplex lower extremity bilat [CV venous Ultrasound 11/17/21 17:23 [place] [id number]] Stat Pending at discharge Category Date Time Status Blood Culture Stat Lab 11/17/21 17:45 Results Sputum Culture and Gram Stain Stat Lab 11/17/21 17:26 Uncollected Radiology Impressions Chest X-Ray 11/17/21 13:27 IMPRESSION: 1. No acute cardiopulmonary finding. Venous Duplex 11/17/21 17:23 IMPRESSION: No evidence of deep vein thrombosis. Chest CT 11/17/21 17:25 IMPRESSION: 1. Imaging features can be seen with COVID-19 pneumonia, though are nonspecific and can occur with a variety of infectious and noninfectious processes. (Reference: Vamshi) 2. Bilateral pleural effusions. 3. Bilateral lower lobe atelectasis. 4. Old granulomatous disease. REFERENCES: Vamshi Griffith, et al., Rad[employer] Society of [place] Expert Consensus Statement on Reporting Chest CT Findings Related to COVID-19. Endorsed by the Society of Thoracic Radiology, the [place] [employer], and RSNA. Published June 14, 2019. Renal Ultrasound 11/17/21 22:55 IMPRESSION: 1. Normal size kidneys. 2. No hydronephrosis. Pulmonary Perfusion Imaging 11/18/21 14:46 IMPRESSION: 1. Low probability for pulmonary embolus. Laboratory Results WBC 10.8 10^3/uL (4.0-10.0) H 11/21/21 04:44 RBC 2.79 10^6/uL (4.1-5.3) L 11/21/21 04:44 Hgb 8.2 g/dL (11.5-15.3) L 11/21/21 04:44 Hct 26.8 % (37.0-47.0) L 11/21/21 04:44 MCV 96.1 fl (81-99) 11/21/21 04:44 MCH 29.4 pg (28.0-34.0) 11/21/21 04:44 MCHC 30.6 g/dL (30.0-36.0) 11/21/21 04:44 RDW 15.5 % (12.1-15.1) H 11/21/21 04:44 Plt Count 227 10^3/cmm (130-400) 11/21/21 04:44 MPV 10.4 fL (7.4-10.4) 11/21/21 04:44 Neut % (Auto) 75.7 % 11/21/21 04:44 Lymph % (Auto) 15.1 % 11/21/21 04:44 [place] % (Auto) 7.8 % 11/21/21 04:44 Eos % (Auto) 0.0 % 11/21/21 04:44 Baso % (Auto) 0.1 % 11/21/21 04:44 Neut # (Auto) 8.19 10^3/uL (1.8-7.7) H 11/21/21 04:44 Lymph # (Auto) 1.6 10^3/uL (0.8-4.8) 11/21/21 04:44 [place] # (Auto) 0.8 10^3/uL (0.2-0.9) 11/21/21 04:44 Eos # (Auto) 0.0 10^3/uL (0.0-0.8) 11/21/21 04:44 Baso # (Auto) 0.0 10^3/uL (0.0-0.1) 11/21/21 04:44 Nucleated RBC % (auto) 0.2 % 11/21/21 04:44 Nucleated RBCs # 0.0 /100WBC 11/21/21 04:44 ESR 35 mm/hr (0-15) H 11/17/21 13:45 APTT 28.2 SECONDS (23.9-36.7) D 11/18/21 14:35 D-Dimer 0.69 ug/mIFEU (0-0.59) H 11/17/21 13:45 Sodium 145 mmol/L (136-145) 11/21/21 04:44 Potassium 3.9 mmol/L (3.5-5.1) 11/21/21 04:44 Chloride 104 mmol/L (98-107) 11/21/21 04:44 Carbon Dioxide 32 mmol/L (22-29) H 11/21/21 04:44 Anion Gap 12.9 (5-19) 11/21/21 04:44 BUN 46 mg/dL (8-23) H 11/21/21 04:44 Creatinine 1.8 mg/dL (0.5-0.9) H 11/21/21 04:44 GFR Calculation Not Reportable 11/21/21 04:44 Glucose 48 mg/dL (65-115) L 11/21/21 04:44 POC Glucose 115 mg/dL (70-110) H 11/21/21 06:28 Estimat Average Glucose 186 11/17/21 13:45 Hemoglobin A1c 8.1 % (4.0-6.0) H 11/17/21 13:45 Calculated Osmolality 309 mOsm/kg (285-295) H 11/21/21 04:44 Calcium 9.4 mg/dL (8.5-10.5) 11/21/21 04:44 Phosphorus 5.8 mg/dL (2.5-4.5) H 11/18/21 01:32 Magnesium 2.5 mg/dL (1.7-2.3) H 11/18/21 01:32 Ferritin 261 ng/mL (15-150) H 11/17/21 13:45 Total Bilirubin 0.4 mg/dL (0.15-1.2) 11/21/21 04:44 AST 29 U/L (0-32) 11/21/21 04:44 ALT 65 U/L (0-33) H 11/21/21 04:44 Alkaline Phosphatase 61 U/L (35-105) 11/21/21 04:44 Troponin T Baseline 51 ng/L (0-10) H 11/17/21 13:45 C-Reactive Protein 8.8 mg/L (0.0-4.9) H 11/17/21 13:45 NT-Pro-B Natriuret Pep 9523 pg/mL (0-450) H 11/17/21 13:45 Total Protein 5.7 g/dL (6.6-8.7) L 11/21/21 04:44 Albumin 3.6 g/dL (3.5-5.2) 11/21/21 04:44 Globulin 2.1 g/dL (1.3-4.6) 11/21/21 04:44 Triglycerides 75 mg/dL (0-150) 11/18/21 01:32 Cholesterol 188 mg/dL (0-200) 11/18/21 01:32 LDL Cholesterol, Calc 104 mg/dL (50-129) 11/18/21 01:32 HDL Cholesterol 69 mg/dL (60-100) 11/18/21 01:32 LDL/HDL Ratio 1.51 RATIO (0.00-3.22) 11/18/21 01:32 Cholesterol/HDL Ratio 2.72 mg/dL (0.0-4.40) 11/18/21 01:32 Procalcitonin 0.17 ng/mL (0-0.5) 11/17/21 13:45 Urine Color Yellow (Yellow) 11/17/21 23:38 Urine Appearance Clear (CLEAR) 11/17/21 23:38 Urine pH 5 (5-7) 11/17/21 23:38 Ur Specific [place] 1.010 (1.005-1.030) 11/17/21 23:38 Urine Protein Neg (Negative) 11/17/21 23:38 Urine Glucose (UA) Norm (Normal) 11/17/21 23:38 Urine Ketones Negative (Negative) 11/17/21 23:38 Urine Blood Neg (Negative) 11/17/21 23:38 Urine Nitrate Negative (Negative) 11/17/21 23:38 Urine Bilirubin Neg (Negative) 11/17/21 23:38 Urine Urobilinogen Norm mg/dL (Negative) 11/17/21 23:38 Ur Leukocyte Esterase Negative (Negative) 11/17/21 23:38 Ur Random Sodium 83 mmol/L 11/17/21 23:38 Ur Random Potassium 33 mmol/L 11/17/21 23:38 Ur Random Chloride 110 mmol/L 11/17/21 23:38 Urine Creatinine 22 mg/dL (28-217) L 11/17/21 23:38 SARS-CoV-2 Ag (Rapid) Negative (Negative) 11/17/21 13:45 Vitals Last Vital Signs Temp 97.8 F 11/21/21 08:00 Pulse 79 11/21/21 08:13 Resp 18 11/21/21 08:13 BP 168/68 11/21/21 08:00 Pulse Ox 94 11/21/21 08:13 O2 Del Method 11/21/21 08:13 O2 Flow Rate 3 11/21/21 08:13 Discharge Plan Discharge Patient Disposition: Home Condition: Stable Prescriptions: New dexamethasone 4 mg tablet 4 mg PO DAILY 7 Days Qty: 7 0RF Pulmicort Flexhaler 90 mcg/actuation aerosol powdr breath activated 1 inh inhalation BID Qty: 1 1RF Ventolin HFA 90 mcg/actuation HFA aerosol inhaler 1 inh inhalation Q6H PRN (Reason: shortness of breath or wheezing) Qty: 6.7 1RF Advair Diskus 100-50 mcg/dose blister with device 1 inh inhalation DAILY Qty: 60 0RF Continued aripiprazole 20 mg tablet 20 mg PO DAILY@22 Qty: 90 3RF isosorbide mononitrate 30 mg tablet extended release 24 hr 30 mg PO DAILY@08 Qty: 90 3RF clopidogrel 75 mg tablet 75 mg PO DAILY@08 Qty: 90 3RF (DME) blood-glucose meter Kit See Rx Instructions .ROUTE .MEDSUPPLY Qty: 1 0RF Rx Instructions: As directed duloxetine 60 mg capsule,delayed release(DR/EC) 60 mg PO DAILY@08 Qty: 90 3RF atorvastatin 20 mg tablet 20 mg PO DAILY@22 Qty: 30 3RF Hold Instructions: Doctor's Order (DME) Comfort EZ Pen [place] 32 gauge x 5/16 needle See Rx Instructions .ROUTE .MEDSUPPLY Qty: 100 6RF Rx Instructions: inject two times daily (DME) FreeStyle [place] 14 Day Sensor Kit See Rx Instructions .Route Qty: 2 12RF Rx Instructions: As directed cholecalciferol (vitamin D3) 1,250 mcg (50,000 unit) capsule 50,000 unit PO Q30D Qty: 1 6RF tramadol 50 mg tablet 50 mg PO Q8H PRN (Reason: pain) Qty: 60 5RF Levemir FlexTouch U-100 Insuln 100 unit/mL (3 mL) insulin pen 30 unit SUBCUT BID Qty: 15 3RF Rx Instructions: replacement script gabapentin 300 mg capsule 300 mg PO BID Qty: 60 5RF pantoprazole 40 mg tablet,delayed release (DR/EC) 40 mg PO BID@08,22 Qty: 60 3RF diphenhydramine HCl [Benadryl] 25 mg Capsule 25 mg PO DAILY PRN (Reason: Allergy Symptoms) dicyclomine 20 mg tablet 20 mg PO BID PRN (Reason: abdominal pain) Qty: 20 0RF trazodone 100 mg tablet 100 mg PO BEDTIME hydralazine 100 mg tablet 100 mg PO TID clonidine HCl 0.1 mg tablet 0.1 mg PO DAILY PRN (Reason: Blood Pressure) levothyroxine 175 mcg tablet 175 mcg PO QAM benzonatate 100 mg Capsule 100 mg PO TID PRN (Reason: Cough) 14 Days Qty: 30 0RF Changed amlodipine 10 mg tablet 10 mg PO DAILY Qty: 180 3RF Discontinued verapamil 120 mg tablet 120 mg PO DAILY@08 Qty: 90 3RF azithromycin 250 mg tablet See Rx Instructions PO .COMPLEX Qty: 6 0RF Rx Instructions: For 250 mg dose pack: take 500 mg today (day 1), then 250 mg for 4 days (days 2-5) PO prednisone 20 mg tablet 20 mg PO DAILY Qty: 5 0RF Rx Instructions: Take one tablet by mouth for 5 days. Discharge Orders: Discharge Order (Routine); Ordered 11/21/21 Ordered By: Caden Ybarra Other Ambulatory Orders: DME: Oxygen (Order) Location: None Selected Ordered By: Caden Ybarra Referrals: [facility] [Outside] Andrea Katz MD [Primary Care Provider] - 12/04/21 1:00 pm () Patient Instructions: Albuterol (By breathing), Budesonide (By breathing), Dexamethasone (By mouth), Fluticasone/Salmeterol (By breathing), Acute Kidney Injury (GEN), Using Oxygen at Home (GEN), Hypoxia (GEN), Opioid Safety Discharge Attestations Time Spent in Discharge Care*: less than 30 min Quality Metrics Clinical Quality Measures [ No reported AMI, CVA or VTE this stay] Coding Level of Care Code Acute Chg FW MD note Exam Detailed Diagnoses Hypoxia R09.02 COVID-19 U07.1 Acute kidney injury superimposed on CKD N17.9; N18.9 Atypical chest pain R07.89 Hypothyroidism (acquired) E03.9 Benign essential HTN I10 Hyperlipidemia, unspecified E78.5 Type 2 diabetes mellitus without complications E11.9
[2021-11-21 12:21] LABS: Glucose Point of Care 173 mg/dL (70-110)
== END 2021-11-21 13:48 | disposition home health service (06) | DRG 177 ==
LOC: ER 14:09 → MEDSURG 18:06
PROVIDERS: Admitting Provider Student in an Organized Health Care Education/Training Program; Emergency Provider Emergency Medicine; PCP Internal Medicine; Visit Provider Internal Medicine
DX: U07.1 COVID-19 (principal); J12.82 Pneumonia due to coronavirus disease 2019; N17.9 Acute kidney failure, unspecified; R09.02 Hypoxemia; N18.2 Chronic kidney disease, stage 2 (mild); Z79.52 Long term (current) use of systemic steroids; Z79.02 Long term (current) use of antithrombotics/antiplatelets; E03.9 Hypothyroidism, unspecified; E78.5 Hyperlipidemia, unspecified; Z87.891 Personal history of nicotine dependence; I13.10 Hypertensive heart and chronic kidney disease without heart failure, with stage 1 through stage 4 chronic kidney disease, or unspecified chronic kidney disease; E11.22 Type 2 diabetes mellitus with diabetic chronic kidney disease; Z79.4 Long term (current) use of insulin; R07.89 Other chest pain
CPT/HCPCS: 36415; 36416; 71045; 71250; 76770; 78014; 80053; 80061; 81003; 82436; 82570; 82728; 82962; 83036; 83735; 83880; 84100; 84133; 84145; 84300; 84484; 85025; 85378; 85651; 85730; 86140; 86403; 87040; 87426; 87449; 93005; 93970; 94640; 94760; 96365; 96372; 96375; 99285; A9540; A9567; J0610; J0696; J1100; J1644; J1815; J1940; J2930; J7626; Q0144

== ENCOUNTER → 2021-12-22 14:37 | Outpatient (BNVA) | payer MEDICARE, BC, SELFPAY | PROVIDERS: PCP Internal Medicine; Visit Provider Internal Medicine | DX: D64.9 Anemia, unspecified (principal); R60.9 Edema, unspecified; N17.9 Acute kidney failure, unspecified; N18.9 Chronic kidney disease, unspecified; E03.9 Hypothyroidism, unspecified; N18.2 Chronic kidney disease, stage 2 (mild); A00.9 Cholera, unspecified | CPT/HCPCS: 80053; 82607; 82746; 83550; 84443; 85025 ==

== ENCOUNTER → 2022-11-11 15:23 | Outpatient (BNVA) | payer MEDICARE, BC, SELFPAY | PROVIDERS: PCP Internal Medicine; Visit Provider Dermatology | DX: L85.3 Xerosis cutis (principal); D22.39 Melanocytic nevi of other parts of face; L57.0 Actinic keratosis; L57.8 Other skin changes due to chronic exposure to nonionizing radiation; D22.71 Melanocytic nevi of right lower limb, including hip; L82.1 Other seborrheic keratosis; Z85.828 Personal history of other malignant neoplasm of skin | CPT/HCPCS: 17000; 99213 ==